=== PATIENT | male | born 1945 | race Caucasian/White ===

== ENCOUNTER 2024-03-11 18:01 | Inpatient (IN) | payer MEDICARE, OTHER, SELFPAY ==
[2024-03-11 15:14] VITALS: BP 126/47; BMI 27.8
--- NOTE | 2024-03-11 15:24 | ED.GENMED ---
History of Present Illness
General
Chief Complaint: Male Genito-Urinary Symptoms
Source: patient
Exam Limitations: none
Time Seen by Provider: 03/11/24 15:20
History of Present Illness
History of Present Illness:
See MDM
Past History
Past History
ED Past Medical History: CAD, CHF, HTN, Hypercholesterolemia, Hypothyroidism and Other (Diverticulitis with perforation 2008, sepsis syndrome after colon reversal 22 complications. Polymyalgia rheumatica, adrenal insufficiency, osteopenia,
Rheumatoid arthritis, SDH, dementia)
ED Past Surgical History: Appendectomy, Bowel resection and Orthopedic (Right femur mello, right foot surgery)
Social History
Tobacco: Non-smoker
Alcohol: Former
Drug: None
Personal:
[facility]: [facility] ([facility])
Employment: Retired
Family History
Family History: Hypertension
Phy Exam
Physical Exam
Physical Exam:
See MDM
Course
Orders/Labs/Results
Orders:
Orders
03/11/24 15:39
COVID-19 Antigen Urgent
Source: Nasal Swab
Complete Blood Count/With Diff Urgent
Comprehensive Metabolic Panel Urgent
Urinalysis Reflex To Culture Urgent
Date Specimen was Collected: 03/11/24
Time Specimen was Collected: 15:33
Urine Microscopic Reflex Cult Urgent
Urine Culture Urgent
TIMOTEO Source: U
Specimen Description:
Date Specimen was Collected: 03/11/24
Time Specimen was Collected: 15:33
03/11/24 16:43
Ciprofloxacin 400 mg/[id number] [Cipro 400 mg] 200 ml IV NOW
03/11/24 16:46
0.9% Sodium Chloride 1000 ml [Nss] 1,000 ml IV BOLUS
Abnormal Lab Results
03/11/24
15:39
WBC 11.6 H 10^3/uL
(4.8-10.8)
RBC 3.73 L 10^6/uL
(4.70-6.10)
Hgb 11.0 L g/dL
(13.0-18.0)
Hct 34.0 L %
(39.0-52.0)
MCHC 32.4 L g/dL
(33.0-37.0)
Plt Count 418 H 10^3/uL
(130-400)
Absolute Neuts (auto) 7.7 H 10^3/uL
(1.4-6.5)
Absolute Monos (auto) 0.9 H 10^3/uL
(0.1-0.6)
BUN 39 H mg/dl
(9-20)
Creatinine 2.1 H mg/dL
(0.7-1.3)
Glucose 163 H mg/dl
(70-99)
Total Bilirubin 0.1 L mg/dl
(0.2-1.3)
Ur Occult Blood Reflex 2+ A
(Negative)
Leukocyte Esterase Rfl 2+ A
(Negative)
Urine WBC (Reflex) 70-80 A /HPF
(0-5)
Urine Bacteria (Reflex) Many A
(Negative)
Urine Albumin (Reflex) 1+ A
(Neg - Trace)
03/11/24 15:39
03/11/24 15:39
Vital Signs
Initial and Last Documented VS:
Initial Vital Signs
Pulse Resp Pulse Ox
65 18 98
03/11/24 15:13 03/11/24 15:13 03/11/24 15:13
Last Documented Vital Signs
Temp Pulse Resp BP Pulse Ox
98.5 F 65 21 126/47 97
03/11/24 15:14 03/11/24 15:15 03/11/24 15:15 03/11/24 15:14 03/11/24 15:15
MDM/Problems Addressed
Differential Diagnosis Includes:
HPI and MDM Narrative:
79-year-old male presenting with concern for persistent UTI. Patient states he was sent in because the antibiotics are not helping. He complains of fevers despite being on antibiotics. He is unsure what antibiotics he is on
Patient sitting bed comfortably. No fever here but patient unsure if he received Tylenol or Motrin today. Will obtain basic blood work and check urine
Physical exam
General: Well appearing and non-toxic
HEENT: protecting airway. Dry mucous membranes
Neck: appears supple
CV: No evidence of cyanosis
Resp: No accessory muscle use. Lungs clear
Abd: Non-distended. Soft and nontender
Extremities: No deformities
Neuro: alert
Psych: Normal affect
Skin: Intact
Problems Addressed including Acute and Chronic Conditions affecting care:
1. Persistent fevers
Acuity: acute
Prognosis: stable
Details: Possibly in the setting of UTI. Will obtain urinalysis. Will obtain COVID testing.
2. Acute kidney injury
Acuity: acute
Prognosis: stable
Details: Likely in setting of poor p.o. intake. Will give IV fluids
Updates
Urinalysis confirms UTI. Given the fevers at home and elevated creatinine, will start IV antibiotics, IV fluids and admit
Differential Diagnosis (but not limited to): COVID, viral syndrome, UTI
Testing considered: Chest x-ray but lungs clear.
Drug therapy (if applicable): OTC meds, please see d/c instruction regarding Rx drugs
Amount and/or Complexity of Data Reviewed
Clinical info obtained from: Patient
External data reviewed: N/A
Labs I independently reviewed (but not limited to): Elevated creatinine
Radiology: N/A
Pulse Ox: not hypoxic
EKG independently reviewed: N/A
Emc Storage Architect: N/A
Critical Care: N/A
Risk of Complication:
Social Determinants of health: Good social support
Discussed with other providers: Hospitalist
Escalation of Care includes Admit/Obs: Given the fevers with no UTI, will start IV antibiotics and admit
Occasional wrong word or 'sound a like' substitutions may have occurred due to the inherent limitations of voice recognition software. Read the chart carefully and recognize, using context, where substitutions have occurred.
*Critical Care Note
Total Time (30-74mins, 75-104mins- exclusive of procedures): Not Applicable
ED Attending Note
-
Portions of this chart may have been created with voice recognition software.� Occasional wrong word or��sound alike� substitutions may have occurred due to the inherent limitations of voice recognition software.
Discharge Plan
Departure
Patient Disposition: Admit
Date of Disposition: 03/11/24
Time of Disposition: 16:49
Admit to: Med/Surg
Presentation/result/management discussed w/ accepting MD/DO: Hospitalist
Discharge Problem:
Acute UTI, Acute kidney injury
Prescriptions:
No Action
metoprolol succinate 50 MG tablet extended release 24 hr
50 mg PO QPM
prednisone 2.5 MG tablet
2.5 mg PO DAILY
paroxetine HCl 20 MG tablet
40 mg PO DAILY
pantoprazole 40 MG tablet,delayed release (DR/EC)
40 mg PO DAILY
calcium carbonate-vitamin D3 [Oyster Shell Calcium-Vit D3] 500 MG tablet
1 tab PO DAILY
levothyroxine [Levoxyl] 88 MCG tablet
88 mcg PO DAILY
[id number]-[id number]-[id number]-nfnunsc-cyhmiq [Centrum Silver Men] 1 EACH tablet
1 ea PO DAILY
simvastatin 40 MG tablet
40 mg PO HS
methenamine hippurate [Hiprex] 1 GM tablet
1 gm PO BID
lorazepam 0.5 MG tablet
0.5 mg PO DAILY PRN (Reason: agitation)
ezetimibe 10 MG tablet
10 mg PO HS
sitagliptin phosphate [Januvia] 100 MG tablet
100 mg PO DAILY
Fluoride (Sodium)
10 ml PO BID
Interventions
Interventions:
*Risk Screen - Suicide Last Done: 03/11/24 15:14
*General Assessment Last Done: 03/11/24 15:14
*Neglect/Abuse Screening Last Done: 03/11/24 15:14
ED- Fall Risk Assessment Last Done: 03/11/24 15:17
*ED COVID-19 Vaccine History Last Done: 03/11/24 15:14
ED-Male Genitourinary Assessment Last Done: 03/11/24 15:17
Discharge Date and Time
Print Language: MOLDOVAN
[2024-03-11 15:50] LABS: Urine Albumin 1+ (Neg - Trace); Urine Bilirubin Negative (Negative); Urine Character Very Cloudy (Clear); Urine Color Yellow; Urine Glucose Negative (Negative); Urine Ketone Negative (Negative); Urine Leukocyte 2+ (Negative); Urine Nitrite Negative (Negative); Urine Occult Blood 2+ (Negative); Urine Specific Gravity 1.005 (<1.030); Urine Urobilinogen Negative (Neg - 1+)
[2024-03-11 15:54] LABS: % Basophils 0.3 % (0-2); % Eosinophils 0.9 % (0-6); % Immature Granulocytes 0.3 % (0-0.5); % Lymphocytes 24.4 % (20.5-51.1); % Monocytes 8.1 % (1.7-9.3); Absolute Eosinophils 0.1 10^3/uL (0-0.7); Absolute Lymphocytes 2.8 10^3/uL (1.2-3.4); Absolute Monocytes 0.9 10^3/uL (0.1-0.6); Absolute Neutrophils 7.7 10^3/uL (1.4-6.5); Mean Corp Hgb Conc. 32.4 g/dL (33.0-37.0); Mean Corpuscular Hgb 29.5 pg (27.0-31.0); Mean Corpuscular Volume 91.2 fL (80.0-94.0); Mean Platelet Volume 8.7 fL (7.4-10.4); Nucleated Red Blood Cells % 0 % (-); Platelet Count 418 10^3/uL (130-400); Red Blood Cell Count 3.73 10^6/uL (4.70-6.10); Red Cell Dist. Width 14.4 % (11.5-14.5); White Blood Cell Count 11.6 10^3/uL (4.8-10.8)
[2024-03-11 16:00] VITALS: BP 131/55
[2024-03-11 16:07] LABS: ALT (SGPT) 13 U/L (0-50); AST (SGOT) 21 U/L (17-59); Albumin 3.5 g/dl (3.5-5.0); Alkaline Phosphatase 88 U/L (38-126); Blood Urea Nitrogen 39 mg/dl (9-20); COVID-19 Antigen Negative (Negative); Calcium 8.8 mg/dl (8.4-10.2); Carbon Dioxide 25 mmol/L (22-30); Chloride 103 mmol/L (98-107); Estimated Creatinine Clearance 27 ml/min; Glucose 163 mg/dl (70-99); Potassium 4.9 mmol/L (3.5-5.1); Sodium 136 mmol/L (135-145); Total Bilirubin 0.1 mg/dl (0.2-1.3); Total Protein 6.5 g/dl (6.3-8.2); eGFR 31.23
[2024-03-11 16:26] LABS: Urine Bacteria Many (Negative); Urine Red Blood Cell 0-2 /HPF (0-2); Urine White Cell 70-80 /HPF (0-5)
[2024-03-11] MEDS: CIPRO 400 MG 200 IV (16:55)
[2024-03-11] MEDS: NSS 1000 IV ×2 (16:56→20:18)
--- NOTE | 2024-03-11 17:14 | HPS.HSE ---
Family Physician
-
Family Physician: Estefany Zhang
Chief Complaint
-
left leg pain, urinary symptoms
History of Present Illness
79-year-old male past medical history of CAD, diabetes, hypertension, hypercholesteremia, hypothyroidism, diverticulitis with perforation status post colon resection, polymyalgia rheumatica, adrenal insufficiency, osteopenia, rheumatoid arthritis,
subdural hematoma, dementia, BPH presenting with left lower leg pain since yesterday and urinary symptoms starting today.
He states that the backside of his left leg feels like a dull pressure starting above the knee and radiating down to the calf. He denies any pain in his lower back or pain in the groin. He denies any falls or injury. He denies any chronic lower
back pain.
Today he developed urinary frequency and burning as well as a fever of 102. He denies any nausea vomiting or diarrhea. He denies any abdominal pain. He denies any history of kidney stones. He was started on Ceftin and gentamicin yesterday. He
has had poor oral intake for the past few days.
Medical History
Past Medical History
Past Medical History: Reports Other (CAD, diabetes, hypertension, hypercholesteremia, hypothyroidism, diverticulitis with perforation status post colon resection, polymyalgia rheumatica, adrenal insufficiency, osteopenia, rheumatoid arthritis,
subdural hematoma, dementia, BPH)
Past Surgical History: Reports Other ( Appendectomy, Bowel resection and Orthopedic (Right femur mello, right foot surgery))
Social History
Tobacco: Non-smoker
Alcohol: Occasional
Drug: None
Family History
Family History: Not pertinent
Allergies / Home Medications
Allergies reflects when Allergies were last updated in [employer].
Home Medications with original date entered in [employer]
Allergy/Medication List:
Allergies
Allergy/AdvReac Type Severity Reaction Status Date / Time
diflunisal Allergy WIGGINS Verified 06/19/22 12:39
JOHNSONS
SYNDROME
penicillin V Allergy Anaphylaxis Verified 06/19/22 12:39
pentazocine Allergy DIFFICULTY Verified 06/19/22 12:39
BREATHING,
HALLUCINATIONS
tramadol HCl [From Ultram] Allergy HALLUCINATI Verified 06/19/22 12:39
ONS
Home Medications
metoprolol succinate 50 mg tablet,extended release 24 hr 50 mg PO QPM 10/06/17
pantoprazole 40 mg tablet,delayed release 40 mg PO DAILY 10/06/17
levothyroxine 88 mcg tablet (Levoxyl) 88 mcg PO DAILY 01/05/18
wmvofmji-by-xtmdo 300 mcg-K 60 mcg-lycop 600 mcg-lutein 300 mcg tablet (Centrum Silver Men) 1 ea PO DAILY 01/05/18
fluoride (sodium) 1.1 % dental gel (DentaGel) 1 applic dental DAILY 04/08/20
methenamine hippurate 1 gram tablet (Hiprex) 1 gm PO BID 04/08/20
simvastatin 40 mg tablet 40 mg PO HS 04/08/20
acetaminophen 325 mg tablet 650 mg PO Q6HPRN PRN mild pain/fever 03/11/24
calcium carbonate 600 mg-vitamin D3 10 mcg (400 unit) tablet (Calcium 600 + D(3)) 1 tab PO BID 03/11/24
estradiol 0.1 mg/24 hr semiweekly transdermal patch 1 patch transdermal MOTH@1830 03/11/24
insulin glargine 100 unit/mL (3 mL) subcutaneous pen (Lantus Solostar U-100 Insulin) 9 unit SC HS 03/11/24
loperamide 2 mg tablet 2 mg PO Q6HPRN PRN loose stool 03/11/24
metformin 500 mg tablet 500 mg PO BID 03/11/24
mirtazapine 7.5 mg tablet 7.5 mg PO HS 03/11/24
prednisone 5 mg tablet 2.5 mg PO DAILY 03/11/24
sertraline 50 mg tablet 75 mg PO DAILY 03/11/24
tamsulosin 0.4 mg capsule 0.4 mg PO HS 03/11/24
Review of Systems
-
History Source: Patient
A 12 point ROS was completed and negative except as noted: Yes
Constitutional: Reports No Symptoms
EENT: Reports No Symptoms
Respiratory: Reports No Symptoms
Cardiac: Reports No Symptoms
Abdomen/GI: Reports No Symptoms
: Reports See HPI
Musculoskeletal: Reports See HPI
Skin: Reports No Symptoms
Neurological: Reports No Symptoms
Endocrine: Reports No Symptoms
Hematologic/Lymphatic: Reports No Symptoms
Psych: Reports No Symptoms
Physical Exam
Vital Signs
Vital Signs
Temp Pulse Resp BP Pulse Ox
98.5 F 65 13 131/55 97
03/11/24 15:14 03/11/24 16:45 03/11/24 16:45 03/11/24 16:00 03/11/24 16:45
Physical Exam
General: Well Developed, Well Nourished and No Apparent Distress
HEENT: NormoCephalic, Moist mucous membranes and Atraumatic
Respiratory: Clear
Cardiac: S1/S2 and Regular Rhythm; No Murmur or Rub
GI: Soft, Non Tender, Non Distended and Normal Bowel Sounds; No Organomegaly
Rectal: Deferred by Provider
Musculoskeletal: No Clubbing, No Cyanosis, No Edema and Other (tender in thigh and hamstrings )
Skin: No Rash
Neuro: Nonfocal/grossly intact
Laboratory Results
-
03/11/24 15:39
03/11/24 15:39
Laboratory Results
Total Bilirubin 0.1 mg/dl (0.2-1.3) L 03/11/24 15:39
AST 21 U/L (17-59) 03/11/24 15:39
ALT 13 U/L (0-50) 03/11/24 15:39
Alkaline Phosphatase 88 U/L (38-126) 03/11/24 15:39
Data Reviewed
-
Lab Data: Labs Reviewed by me
Old Records: Reviewed
Impression/Plan
-
IMPRESSION:
PLAN:
# Urinary tract infection
-Check urine culture
-Levaquin
# Acute left lower extremity pain
-thigh/lower hamstring tenderness
-Possibly sciatic pain versus muscle spasm although no lower back pain
-Check CPK
-Tramadol for pain
# Acute kidney injury likely prerenal
-IV fluids
Coronary artery disease
Type 2 diabetes
-Continue Lantus 9 units
-Insulin sliding scale
-Hold metformin
Essential hypertension
-Continue metoprolol
Hypercholesterolemia
-Continue statin
Hypothyroidism
-Continue levothyroxine
Diverticulitis with perforation status post colon resection
Polymyalgia rheumatica
-Continue prednisone
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
Osteopenia
Rheumatoid arthritis
History of subdural hematoma
Dementia/depression
-Continue mirtazapine, sertraline
BPH
-Continue tamsulosin
Full code
DVT prophylaxis�heparin
Diabetic diet
[2024-03-11 18:46] VITALS: BP 144/58
[2024-03-11 18:47] VITALS: BMI 27.4
[2024-03-11 19:56] LABS: Creatine Phosphokinase 35 U/L (55-170)
[2024-03-11] MEDS: HEPARIN 5000 UNITS SC (20:18)
[2024-03-11] MEDS: FLOMAX 0.4 MG PO (20:18)
[2024-03-11] MEDS: REMERON 7.5 MG PO (20:18)
[2024-03-11] MEDS: LIPITOR 20 MG PO (20:18)
[2024-03-11] MEDS: OSCAL 500 + D 500 MG PO (20:19)
[2024-03-11] MEDS: [UNRECOGNIZED DRUG - OTHER] TRANSDERM (20:19)
[2024-03-11] MEDS: TOPROL XL 50 MG PO (20:19)
[2024-03-11 21:31] LABS: Glucose - Point of Care 95 mg/dl (70-99)
[2024-03-11 23:35] VITALS: BP 138/61
[2024-03-12] MEDS: LANTUS 0.09 UNITS SC ×2 (00:06→23:00)
[2024-03-12] MEDS: SYNTHROID 88 MCG PO (05:48)
[2024-03-12] MEDS: NSS 1000 IV ×2 (05:49→13:00)
[2024-03-12 07:56] VITALS: BP 124/65
[2024-03-12 08:08] LABS: ALT (SGPT) 10 U/L (0-50); AST (SGOT) 19 U/L (17-59); Albumin 2.8 g/dl (3.5-5.0); Alkaline Phosphatase 68 U/L (38-126); Blood Urea Nitrogen 35 mg/dl (9-20); Calcium 8.1 mg/dl (8.4-10.2); Carbon Dioxide 26 mmol/L (22-30); Chloride 109 mmol/L (98-107); Estimated Creatinine Clearance 29 ml/min; Glucose 79 mg/dl (70-99); Potassium 4.6 mmol/L (3.5-5.1); Sodium 138 mmol/L (135-145); Total Bilirubin 0.1 mg/dl (0.2-1.3); Total Protein 5.4 g/dl (6.3-8.2); eGFR 33.12
[2024-03-12] MEDS: NOVOLOG FLEXPEN-LOW RESISTANCE SC ×2 (08:47→11:32)
[2024-03-12 08:48] LABS: Glucose - Point of Care 98 mg/dl (70-99)
[2024-03-12] MEDS: HEPARIN 5000 UNITS SC ×2 (08:48→21:20)
[2024-03-12] MEDS: PROTONIX 40 MG PO (08:49)
[2024-03-12] MEDS: THERAGRAN 1 TABLET PO (08:49)
[2024-03-12] MEDS: DELTASONE 2.5 MG PO (08:49)
[2024-03-12] MEDS: OSCAL 500 + D 500 MG PO ×2 (08:49→21:20)
[2024-03-12] MEDS: ZOLOFT 75 MG PO (08:50)
[2024-03-12 09:23] LABS: Glycohemoglobin (HgbA1c) 5.8 % (4.0-5.6)
[2024-03-12 10:26] LABS: % Basophils 0.8 % (0-2); % Eosinophils 2.1 % (0-6); % Immature Granulocytes 0.2 % (0-0.5); % Lymphocytes 38.5 % (20.5-51.1); % Monocytes 11.4 % (1.7-9.3); Absolute Basophils 0.1 10^3/uL (0-0.2); Absolute Eosinophils 0.2 10^3/uL (0-0.7); Absolute Lymphocytes 3.3 10^3/uL (1.2-3.4); Hematocrit 29.4 % (39.0-52.0); Hemoglobin 9.6 g/dL (13.0-18.0); Mean Corp Hgb Conc. 32.7 g/dL (33.0-37.0); Mean Corpuscular Volume 88.8 fL (80.0-94.0); Mean Platelet Volume 9.1 fL (7.4-10.4); Nucleated Red Blood Cells % 0 % (-); Platelet Count 407 10^3/uL (130-400); Red Blood Cell Count 3.31 10^6/uL (4.70-6.10); Red Cell Dist. Width 14.5 % (11.5-14.5); White Blood Cell Count 8.5 10^3/uL (4.8-10.8)
[2024-03-12 11:30] LABS: Glucose - Point of Care 141 mg/dl (70-99)
[2024-03-12] MEDS: LEVAQUIN 50 IV (15:16)
--- NOTE | 2024-03-12 15:45 | CM ---
legal practice manager reviewed patient's chart and spoke with patient and patient was admitted from [facility], where patient resides, per nursing at [facility] patient was assist with adl's and used a walker with ambulation, case loader operator
reached out to patient's daughter primary contact to review prior level of functioning and left message.
PCP: Dr. Zhang
Pharmacy: [facility].
Plan: To follow with patient progress and assist with discharge planning for patient.
[2024-03-12 15:48] VITALS: BP 111/47
[2024-03-12 16:06] LABS: Glucose - Point of Care 175 mg/dl (70-99)
[2024-03-12] MEDS: NOVOLOG FLEXPEN-LOW RESISTANCE 1 UNITS SC (16:10)
[2024-03-12] MEDS: TOPROL XL 50 MG PO (17:37)
--- NOTE | 2024-03-12 18:45 | W.PN.HOSP.TC ---
Today's Communication/Plan
-
Continue antibiotics pending urine culture
Assessment / Plan
Assessment / Plan
Impression:
Reported dysuria upon presentation.
Concern for UTI.
FLOYD.
Reported acute left lower extremity pain, not on current evaluation.
Other conditions:
CAD
Type 2 diabetes/IDDM
Essential hypertension
Dyslipidemia
Hypothyroidism
History of diverticulitis with perforation
Polymyalgia rheumatica on chronic prednisone for
Chronic adrenal insufficiency per
Osteopenia
Rheumatoid arthritis
History of subdural hematoma per
Dementia likely senile type.
BPH
Plan:
Concern for UTI
Urinalysis consistent with pyuria.
Continue antibiotics/Levaquin pending urine cultures
FLOYD.
Creatinine 2.1 upon presentation (baseline 1.3)
History of BPH.
Bladder scan to rule out obstructive component
IV hydration.
Continue Flomax
Reported acute left lower extremity pain. On exam with no erythema, induration or edema.
Normal CPK.
Monitor closely
Coronary artery disease
Type 2 diabetes
-Continue Lantus 9 units
-Insulin sliding scale
-Hold metformin
Essential hypertension
-Continue metoprolol
Hypercholesterolemia
-Continue statin
Hypothyroidism
-Continue levothyroxine
Diverticulitis with perforation status post colon resection
Polymyalgia rheumatica
-Continue prednisone
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
Osteopenia
Rheumatoid arthritis
History of subdural hematoma
Dementia/depression
-Continue mirtazapine, sertraline
BPH
-Continue tamsulosin
Full code
DVT prophylaxis�heparin
Diabetic diet
Anticipated Discharge: 24 - 48 hours
Subjective/Interval History
-
Date of Service: March 12, 2024
Objective Data
-
Labs:
Laboratory Results
03/12/24
06:42
WBC 8.5
Hgb 9.6 L
Hct 29.4 L
Plt Count 407 H
Sodium 138
Potassium 4.6
Chloride 109 H
Carbon Dioxide 26
BUN 35 H
Creatinine 2.0 H
Glucose 79
Calcium 8.1 L
Total Bilirubin 0.1 L
AST 19
ALT 10
Alkaline Phosphatase 68
Vital Signs:
Vital Signs
Temp Pulse Resp BP Pulse Ox
98.3 F 61 20 111/47 97
03/12/24 15:48 03/12/24 15:48 03/12/24 15:48 03/12/24 15:48 03/12/24 15:48
I&O
03/11/24 03/12/24 03/13/24
06:59 06:59 06:59
Intake Total 1200 / 1200
Balance 1200 / 1200
Physical Exam
-
General: Well Developed and No Apparent Distress
HEENT: Normocephalic, Atraumatic and Moist Mucous Membranes
Respiratory: Clear to Auscultation
Cardiac: Regular Rhythm and S1/S2; Negative Murmur, Rub or Gallop
GI: Soft, Nontender, Nondistended and Normal Bowel Sounds; Negative Organomegaly
Rectal: Deferred by Provider
Musculoskeletal: No Clubbing, No Cyanosis and No Edema
Skin: Negative Rash
Neuro: Nonfocal/Grossly Intact
[2024-03-12 21:18] LABS: Glucose - Point of Care 108 mg/dl (70-99)
[2024-03-12] MEDS: LIPITOR 20 MG PO (21:20)
[2024-03-12] MEDS: REMERON 7.5 MG PO (21:20)
[2024-03-12] MEDS: FLOMAX 0.4 MG PO (21:20)
[2024-03-12 23:38] VITALS: BP 141/77
[2024-03-13] MEDS: NSS 1000 IV (00:40)
[2024-03-13] MEDS: SYNTHROID 88 MCG PO (05:59)
[2024-03-13 07:53] LABS: Glucose - Point of Care 128 mg/dl (70-99)
[2024-03-13 08:14] VITALS: BP 125/63
[2024-03-13] MEDS: NOVOLOG FLEXPEN-LOW RESISTANCE SC ×2 (08:43→12:23)
[2024-03-13] MEDS: ZOLOFT 75 MG PO (08:46)
[2024-03-13] MEDS: DELTASONE 2.5 MG PO (08:47)
[2024-03-13] MEDS: THERAGRAN 1 TABLET PO (08:48)
[2024-03-13] MEDS: OSCAL 500 + D 500 MG PO (08:48)
[2024-03-13] MEDS: PROTONIX 40 MG PO (08:48)
[2024-03-13] MEDS: HEPARIN 5000 UNITS SC (08:49)
[2024-03-13 09:51] LABS: % Basophils 0.8 % (0-2); % Eosinophils 1.8 % (0-6); % Immature Granulocytes 0.2 % (0-0.5); % Lymphocytes 36.7 % (20.5-51.1); % Monocytes 9.2 % (1.7-9.3); % Neutrophils 51.3 % (42.2-75.2); Absolute Basophils 0.1 10^3/uL (0-0.2); Absolute Eosinophils 0.2 10^3/uL (0-0.7); Absolute Lymphocytes 3.5 10^3/uL (1.2-3.4); Absolute Monocytes 0.9 10^3/uL (0.1-0.6); Absolute Neutrophils 4.8 10^3/uL (1.4-6.5); Mean Corp Hgb Conc. 32.3 g/dL (33.0-37.0); Mean Corpuscular Hgb 28.5 pg (27.0-31.0); Mean Corpuscular Volume 88.3 fL (80.0-94.0); Mean Platelet Volume 8.9 fL (7.4-10.4); Nucleated Red Blood Cells % 0 % (-); Platelet Count 421 10^3/uL (130-400); Red Blood Cell Count 3.51 10^6/uL (4.70-6.10); Red Cell Dist. Width 14.6 % (11.5-14.5); White Blood Cell Count 9.4 10^3/uL (4.8-10.8)
[2024-03-13 11:01] LABS: Blood Urea Nitrogen 31 mg/dl (9-20); Calcium 8.5 mg/dl (8.4-10.2); Carbon Dioxide 18 mmol/L (22-30); Chloride 111 mmol/L (98-107); Estimated Creatinine Clearance 30 ml/min; Glucose 154 mg/dl (70-99); Potassium 4.5 mmol/L (3.5-5.1); Sodium 138 mmol/L (135-145); eGFR 35.22
--- NOTE | 2024-03-13 11:48 | W.DS.TRANS ---
DC Summary - Patient Scheduling Manager
-
Discharge Instructions:
Discharge Diagnosis/Procedures Concern for uti
Diet Regular
Instructions:
Stand-Alone Forms:
Changes to Home Medications: No
Discharge Medications:
DC Medications w/original date entered in [facility]
metoprolol succinate 50 mg tablet,extended release 24 hr 50 mg PO QPM Blood Pressure 10/06/17
pantoprazole 40 mg tablet,delayed release 40 mg PO DAILY GERD 10/06/17
levothyroxine 88 mcg tablet (Levoxyl) 88 mcg PO DAILY Thyroid 01/05/18
kcnaqdmj-oh-vsblc 300 mcg-K 60 mcg-lycop 600 mcg-lutein 300 mcg tablet (Centrum Silver Men) 1 ea PO DAILY Supplement 01/05/18
fluoride (sodium) 1.1 % dental gel (DentaGel) 1 applic dental DAILY DENTAL CARE 04/08/20
methenamine hippurate 1 gram tablet (Hiprex) 1 gm PO BID Urinary Issue 04/08/20
simvastatin 40 mg tablet 40 mg PO HS High Cholesterol 04/08/20
acetaminophen 325 mg tablet 650 mg PO Q6HPRN PRN mild pain/fever 03/11/24
calcium carbonate 600 mg-vitamin D3 10 mcg (400 unit) tablet (Calcium 600 + D(3)) 1 tab PO BID Supplement 03/11/24
estradiol 0.1 mg/24 hr semiweekly transdermal patch 1 patch transdermal MOTH@1830 Hormonal Agent 03/11/24
insulin glargine 100 unit/mL (3 mL) subcutaneous pen (Lantus Solostar U-100 Insulin) 9 unit SC HS diabetes 03/11/24
loperamide 2 mg tablet 2 mg PO Q6HPRN PRN loose stool 03/11/24
metformin 500 mg tablet 500 mg PO BID diabetes 03/11/24
mirtazapine 7.5 mg tablet 7.5 mg PO HS depression/insomnia 03/11/24
prednisone 5 mg tablet 2.5 mg PO DAILY Anti-Inflammatory 03/11/24
sertraline 50 mg tablet 75 mg PO DAILY depression/anxiety 03/11/24
tamsulosin 0.4 mg capsule 0.4 mg PO HS Urinary Issue 03/11/24
Home Medication Changes
Pending Results: No
[2024-03-13 12:01] LABS: Glucose - Point of Care 135 mg/dl (70-99)
--- NOTE | 2024-03-13 12:36 | CM ---
Addendum entered by Samanta Lawrence 03/13/24 12:50:
manager of sales spoke with [facility] and they are aware that patient is returning today.
[facility]
Report [phone]

Original Note:
Patient to return to [facility] today, waiting on a return call from [facility].
Plan; Patient to return to [facility] today
[2024-03-13 13:52] VITALS: BP 133/64
== END 2024-03-13 13:52 | DRG 690 ==
LOC: 4 WEST ACU 18:01
PROVIDERS: ADMITTING PHYSICIAN Hospitalist; ATTENDING PHYSICIAN Internal Medicine; EMERGENCY PHYSICIAN Student in an Organized Health Care Education/Training Program; FAMILY PHYSICIAN Internal Medicine
DX: N39.0 Urinary tract infection, site not specified (principal); I13.0 Hypertensive heart and chronic kidney disease with heart failure and stage 1 through stage 4 chronic kidney disease, or unspecified chronic kidney disease; E27.3 Drug-induced adrenocortical insufficiency; F03.93 Unspecified dementia, unspecified severity, with mood disturbance; I25.10 Atherosclerotic heart disease of native coronary artery without angina pectoris; N13.30 Unspecified hydronephrosis; E11.22 Type 2 diabetes mellitus with diabetic chronic kidney disease; I50.9 Heart failure, unspecified; E78.00 Pure hypercholesterolemia, unspecified; E03.9 Hypothyroidism, unspecified; M35.3 Polymyalgia rheumatica; M85.80 Other specified disorders of bone density and structure, unspecified site; N40.0 Benign prostatic hyperplasia without lower urinary tract symptoms; M06.9 Rheumatoid arthritis, unspecified; N18.2 Chronic kidney disease, stage 2 (mild); M79.605 Pain in left leg; T38.0X5A Adverse effect of glucocorticoids and synthetic analogues, initial encounter; Z88.0 Allergy status to penicillin; Z88.8 Allergy status to other drugs, medicaments and biological substances; Z79.4 Long term (current) use of insulin; Z79.84 Long term (current) use of oral hypoglycemic drugs; Z79.890 Hormone replacement therapy; Z86.79 Personal history of other diseases of the circulatory system; Z11.59 Encounter for screening for other viral diseases
CPT/HCPCS: 76770; 80048; 80053; 81003; 81015; 82550; 82962; 83036; 85025; 87070; 87086; 87811; 96361; 96374; 99285

== ENCOUNTER 2024-03-26 07:30 | Emergency (ER) | payer MEDICARE, OTHER, SELFPAY ==
[2024-03-26] VITALS (9 sets, daily range): BP systolic 92–120; BP diastolic 48–66; BMI 27.6
--- NOTE | 2024-03-26 07:49 | ED.GENMED ---
History of Present Illness
<Wilmer Rizzo PA-C - Last Filed: 03/26/24 14:40>
General
Chief Complaint: Fainting/Passed Out
Source: patient
Exam Limitations: none
Time Seen by Provider: 03/26/24 07:32
History of Present Illness
History of Present Illness:
79-year-old male from [facility] via EMS after witnessed syncopal episode. Per facility he was using the shower and going to the bathroom and stood up and passed out. Staff caught him and he sustained no injuries. Patient arrives
alert stating that he passed out at his facility. He denies any pain. He does remember feeling lightheaded prior to passing out. No current chest pain abdominal pain shortness of breath. After speaking with the staff at the facility as well as
both daughters over the telephone, they state that he has been having diarrhea for quite some time and has been having studies done evaluating this. He has a history of dementia. No other complaints at this time
Past History
<Wilmer Rizzo PA-C - Last Filed: 03/26/24 14:40>
Past History
ED Past Medical History: CAD, CHF, HTN, Hypercholesterolemia, Hypothyroidism and Other (Diverticulitis with perforation 2008, sepsis syndrome after colon reversal 22 complications. Polymyalgia rheumatica, adrenal insufficiency, osteopenia,
Rheumatoid arthritis, SDH, dementia)
ED Past Surgical History: Appendectomy, Bowel resection and Orthopedic (Right femur mello, right foot surgery)
Social History
Tobacco: Non-smoker
Alcohol: Former
Drug: None
Personal:
Living: retirement ([facility])
Employment: Retired
Family History
Family History: Hypertension
Phy Exam
<Wilmer Rizzo PA-C - Last Filed: 03/26/24 14:40>
Physical Exam
Physical Exam:
General: Well-appearing male no acute respiratory distress
HEENT: Normocephalic atraumatic
Heart: Regular rate and rhythm no murmurs
Lungs: Clear no wheeze
Abdomen is soft nontender nondistended no guarding or rebound
Extremities: No cyanosis
Skin: Warm no rash
Neuro: Alert no facial asymmetry good muscle tone oriented to person and place
Course
<Wilmer Rizzo PA-C - Last Filed: 03/26/24 14:40>
Orders/Labs/Results
Orders:
Orders
03/26/24 07:32
Electrocardiogram (*1) Urgent
Reason for Study: Syncope
EKG- Treatment ONCE
03/26/24 07:48
Cardiac Monitoring- Treatment ONCE
03/26/24 08:20
Complete Blood Count/With Diff Urgent
Comprehensive Metabolic Panel Urgent
03/26/24 11:14
0.9% Sodium Chloride 500 ml [Nss] 500 ml IV BOLUS
03/26/24 12:45
Urinalysis Reflex To Culture Urgent
Date Specimen was Collected: 03/26/24
Time Specimen was Collected: 12:14
Urine Microscopic Reflex Cult Urgent
Urine Culture Urgent
TIMOTEO Source: U
Specimen Description:
Date Specimen was Collected: 03/26/24
Time Specimen was Collected: 12:14
03/26/24 14:34
Ciprofloxacin HCl [Cipro] 500 mg PO NOW STA
Abnormal Lab Results
03/26/24 03/26/24
08:20 12:45
WBC 11.8 H 10^3/uL
(4.8-10.8)
RBC 4.01 L 10^6/uL
(4.70-6.10)
Hgb 11.9 L g/dL
(13.0-18.0)
Hct 36.7 L %
(39.0-52.0)
MCHC 32.4 L g/dL
(33.0-37.0)
RDW 15.3 H %
(11.5-14.5)
Plt Count 424 H 10^3/uL
(130-400)
Absolute Neuts (auto) 6.9 H 10^3/uL
(1.4-6.5)
Absolute Monos (auto) 1.4 H 10^3/uL
(0.1-0.6)
Monocytes % 11.7 H %
(1.7-9.3)
BUN 38 H mg/dl
(9-20)
Creatinine 2.2 H mg/dL
(0.7-1.3)
Ur Occult Blood Reflex 2+ A
(Negative)
Leukocyte Esterase Rfl 2+ A
(Negative)
Urine RBC 7-10 A /HPF
(0-2)
Urine WBC (Reflex) 40-50 A /HPF
(0-5)
Urine Bacteria (Reflex) Many A
(Negative)
Urine Albumin (Reflex) 1+ A
(Neg - Trace)
03/26/24 08:20
03/26/24 08:20
Vital Signs
Initial and Last Documented VS:
Initial Vital Signs
Temp Pulse Resp BP Pulse Ox
36.6 C 61 16 113/50 99
03/26/24 07:34 03/26/24 07:34 03/26/24 07:34 03/26/24 07:34 03/26/24 07:34
Last Documented Vital Signs
Temp Pulse Resp BP Pulse Ox
36.6 C 58 16 96/54 96
03/26/24 07:34 03/26/24 10:45 03/26/24 10:45 03/26/24 09:00 03/26/24 10:45
<Isai Hannah MD - Last Filed: 03/26/24 14:46>
Orders/Labs/Results
Orders:
Orders
03/26/24 07:32
Electrocardiogram (*1) Urgent
Reason for Study: Syncope
EKG- Treatment ONCE
03/26/24 07:48
Cardiac Monitoring- Treatment ONCE
03/26/24 08:20
Complete Blood Count/With Diff Urgent
Comprehensive Metabolic Panel Urgent
03/26/24 11:14
0.9% Sodium Chloride 500 ml [Nss] 500 ml IV BOLUS
03/26/24 12:45
Urinalysis Reflex To Culture Urgent
Date Specimen was Collected: 03/26/24
Time Specimen was Collected: 12:14
Urine Microscopic Reflex Cult Urgent
Urine Culture Urgent
TIMOTEO Source: U
Specimen Description:
Date Specimen was Collected: 03/26/24
Time Specimen was Collected: 12:14
03/26/24 14:34
Ciprofloxacin HCl [Cipro] 500 mg PO NOW STA
Abnormal Lab Results
03/26/24 03/26/24
08:20 12:45
WBC 11.8 H 10^3/uL
(4.8-10.8)
RBC 4.01 L 10^6/uL
(4.70-6.10)
Hgb 11.9 L g/dL
(13.0-18.0)
Hct 36.7 L %
(39.0-52.0)
MCHC 32.4 L g/dL
(33.0-37.0)
RDW 15.3 H %
(11.5-14.5)
Plt Count 424 H 10^3/uL
(130-400)
Absolute Neuts (auto) 6.9 H 10^3/uL
(1.4-6.5)
Absolute Monos (auto) 1.4 H 10^3/uL
(0.1-0.6)
Monocytes % 11.7 H %
(1.7-9.3)
BUN 38 H mg/dl
(9-20)
Creatinine 2.2 H mg/dL
(0.7-1.3)
Ur Occult Blood Reflex 2+ A
(Negative)
Leukocyte Esterase Rfl 2+ A
(Negative)
Urine RBC 7-10 A /HPF
(0-2)
Urine WBC (Reflex) 40-50 A /HPF
(0-5)
Urine Bacteria (Reflex) Many A
(Negative)
Urine Albumin (Reflex) 1+ A
(Neg - Trace)
03/26/24 08:20
03/26/24 08:20
Vital Signs
Initial and Last Documented VS:
Initial Vital Signs
Temp Pulse Resp BP Pulse Ox
36.6 C 61 16 113/50 99
03/26/24 07:34 03/26/24 07:34 03/26/24 07:34 03/26/24 07:34 03/26/24 07:34
Last Documented Vital Signs
Temp Pulse Resp BP Pulse Ox
36.6 C 58 16 96/54 96
03/26/24 07:34 03/26/24 10:45 03/26/24 10:45 03/26/24 09:00 03/26/24 10:45
<Wilmer Rizzo PA-C - Last Filed: 03/26/24 14:40>
MDM/Problems Addressed
Differential Diagnosis Includes:
Syncope. Question orthostasis versus dehydration versus electrolyte abnormality versus arrhythmia
Discussed at length with both daughters over the telephone about treatment goals. His paperwork with comfort measures only but they are okay with general testing and hydration or antibiotics if needed. They do not want any heroic such as CPR or
intubation. Will check labs and urine. Patient placed on cardiac
<Wilmer Rizzo PA-C - Last Filed: 08/27/24 14:40>
*Critical Care Note
Total Time (30-74mins, 75-104mins- exclusive of procedures): Not Applicable
<Wilmer Rizzo PA-C - Last Filed: 03/26/24 14:40>
Update Note
Update Note:
Workup here demonstrates UTI. He was given some fluid. He is stable nontoxic no signs of sepsis no arrhythmias here. Will start on Cipro for UTI and discharged back to facility. Discussed with patient daughter
ED Attending Note
<Wilmer Rizzo PA-C - Last Filed: 03/26/24 14:40>
-
Portions of this chart may have been created with voice recognition software.� Occasional wrong word or��sound alike� substitutions may have occurred due to the inherent limitations of voice recognition software.
<Isai Hannah MD - Last Filed: 03/26/24 14:46>
ED Attending Note
Patient seen and examined by attending physician: Yes
ED Attending Note:
I have seen and evaluated the patient with a [id number] encounter. I have spoken to the advance practicer provider and involved in the medical history, the physical exam, medical decision making.
Evaluation and management service: agree unless noted differently below.
Results interpretation: agree unless noted differently below.
Focused HPI: 79-year-old male with history as documented presents from retirement at [facility] for evaluation after syncopal event. According to staff at [facility] who I spoke with directly patient has been dealing with some diarrhea for
the past few days. This morning was in the shower with the aid and had brief syncopal event. EMS was called to bring her to the hospital. Patient says 'I passed out.' Denies specific complaints. No apparent trauma.
Physical exam: Awake and alert. Nontoxic. Vital signs normal.
Medical Decision Makin-year-old male presented after witnessed syncopal event in the setting of recent diarrheal illness. Vitals normal. EKG shows sinus rhythm with no high-grade AV block, no ectopy, no QTc prolongation, no Brugada. No clear
ischemic changes. Labs sent off including a CBC which shows some hemoconcentration. He has a mild FLOYD with a creatinine of 2.2 from baseline of 1.9. No significant electrolyte derangements. His urinalysis was positive for infection. He was
given IV fluids here, observed on the monitor for 6+ hours with no significant events. PA discussed with family, plan for discharge home will treat with antibiotics for possible UTI in the setting of recent diarrhea.
Discharge Plan
Departure
Patient Disposition: Home (Routine Discharge)
Date of Disposition: 03/26/24
Time of Disposition: 14:35
Patient with high blood pressure during this ER visit?: No
Discharge Problem:
Acute UTI
Instructions: Syncope (Fainting) (DC), Urinary Tract Infection, Adult ED
Prescriptions:
New
ciprofloxacin HCl [Cipro] 500 mg tablet
500 mg PO Q12H Qty: 14 0RF
No Action
metoprolol succinate 50 MG tablet extended release 24 hr
50 mg PO QPM
pantoprazole 40 MG tablet,delayed release (DR/EC)
40 mg PO DAILY
levothyroxine [Levoxyl] 88 MCG tablet
88 mcg PO DAILY
Centrum Silver Men 1 EACH tablet
1 ea PO DAILY
simvastatin 40 MG tablet
40 mg PO HS
methenamine hippurate [Hiprex] 1 GM tablet
1 gm PO BID
fluoride (sodium) [DentaGel] 1.1 % Gel
1 applic DENTAL DAILY
metformin 500 mg tablet
500 mg PO BID
acetaminophen 325 mg Tablet
650 mg PO Q6HPRN PRN (Reason: mild pain/fever)
prednisone 5 mg tablet
2.5 mg PO DAILY
estradiol 0.1 mg/24 hr patch semiweekly
1 patch transdermal MOTH@1830
loperamide 2 mg Tablet
2 mg PO Q6HPRN PRN (Reason: loose stool)
tamsulosin 0.4 mg capsule
0.4 mg PO HS
sertraline 50 mg Tablet
75 mg PO DAILY
mirtazapine 7.5 mg Tablet
7.5 mg PO HS
calcium carbonate-vitamin D3 [Calcium 600 + D(3)] 600 mg-10 mcg (400 unit) Tablet
1 tab PO BID
insulin glargine [Lantus Solostar U-100 Insulin] 100 unit/mL (3 mL) Insulin Pen
9 unit SC HS
Referrals:
Estefany Zhang MD [Family Provider] -
Activity Restrictions/Additional Instructions:
Encourage fluids. Administer antibiotic as prescribed return if worse otherwise
Interventions
Interventions:
*Risk Screen - Suicide Last Done: 03/26/24 07:34
*General Assessment Last Done: 03/26/24 07:34
*Neglect/Abuse Screening Last Done: 03/26/24 07:34
ED- Fall Risk Assessment Last Done: 03/26/24 08:22
*ED COVID-19 Vaccine History Last Done: 03/26/24 07:34
ED- Cardiac Assessment Last Done: 03/26/24 08:22
ED- Neurological Assessment Last Done: 03/26/24 08:22
Discharge Date and Time
Print Language: LIBYAN
[2024-03-26 08:30] LABS: % Basophils 0.6 % (0-2); % Eosinophils 1.7 % (0-6); % Immature Granulocytes 0.3 % (0-0.5); % Lymphocytes 27.4 % (20.5-51.1); % Monocytes 11.7 % (1.7-9.3); % Neutrophils 58.3 % (42.2-75.2); Absolute Basophils 0.1 10^3/uL (0-0.2); Absolute Eosinophils 0.2 10^3/uL (0-0.7); Absolute Lymphocytes 3.3 10^3/uL (1.2-3.4); Absolute Monocytes 1.4 10^3/uL (0.1-0.6); Absolute Neutrophils 6.9 10^3/uL (1.4-6.5); Hematocrit 36.7 % (39.0-52.0); Hemoglobin 11.9 g/dL (13.0-18.0); Mean Corp Hgb Conc. 32.4 g/dL (33.0-37.0); Mean Corpuscular Hgb 29.7 pg (27.0-31.0); Mean Corpuscular Volume 91.5 fL (80.0-94.0); Nucleated Red Blood Cells % 0 % (-); Platelet Count 424 10^3/uL (130-400); Red Blood Cell Count 4.01 10^6/uL (4.70-6.10); Red Cell Dist. Width 15.3 % (11.5-14.5); White Blood Cell Count 11.8 10^3/uL (4.8-10.8)
[2024-03-26 08:52] LABS: ALT (SGPT) 12 U/L (0-50); AST (SGOT) 22 U/L (17-59); Albumin 3.9 g/dl (3.5-5.0); Alkaline Phosphatase 88 U/L (38-126); Blood Urea Nitrogen 38 mg/dl (9-20); Calcium 9.8 mg/dl (8.4-10.2); Carbon Dioxide 27 mmol/L (22-30); Chloride 104 mmol/L (98-107); Estimated Creatinine Clearance 26 ml/min; Glucose 92 mg/dl (70-99); Potassium 4.8 mmol/L (3.5-5.1); Sodium 140 mmol/L (135-145); Total Bilirubin 0.4 mg/dl (0.2-1.3); Total Protein 6.9 g/dl (6.3-8.2); eGFR 29.54
[2024-03-26] MEDS: NSS 500 IV (11:26)
[2024-03-26 13:09] LABS: Urine Albumin 1+ (Neg - Trace); Urine Bilirubin Negative (Negative); Urine Character Very Cloudy (Clear); Urine Color Yellow; Urine Glucose Negative (Negative); Urine Ketone Negative (Negative); Urine Leukocyte 2+ (Negative); Urine Nitrite Negative (Negative); Urine Occult Blood 2+ (Negative); Urine Urobilinogen Negative (Neg - 1+)
[2024-03-26 14:27] LABS: Urine Mucus Many
[2024-03-26 14:31] LABS: Urine Amorphous Seen; Urine Squamous Cell 0-2 /LPF (Few)
[2024-03-26 14:32] LABS: Urine Bacteria Many (Negative); Urine White Cell 40-50 /HPF (0-5)
[2024-03-26] MEDS: CIPRO 500 MG PO (15:03)
== END 2024-03-26 18:00 | disposition home or self-care (01) ==
LOC: EMR 07:30
PROVIDERS: Physician Assistant; EMERGENCY PHYSICIAN Emergency Medicine; FAMILY PHYSICIAN Internal Medicine
DX: N39.0 Urinary tract infection, site not specified (principal); F03.90 Unspecified dementia, unspecified severity, without behavioral disturbance, psychotic disturbance, mood disturbance, and anxiety
CPT/HCPCS: 99284; 96360; 80053; 81003; 81015; 85025; 87077; 87086; 87186; 93005

== ENCOUNTER 2024-10-11 21:42 | Emergency (ER) | payer MEDICARE, OTHER, SELFPAY ==
[2024-10-11 21:45] VITALS: BP 136/66
[2024-10-11 21:46] VITALS: BP 139/66
[2024-10-11 22:05] VITALS: BP 150/72
[2024-10-11 22:17] VITALS: BMI 28.7
--- NOTE | 2024-10-11 22:50 | ED.GENMED ---
History of Present Illness
General
Chief Complaint: Fall
Source: patient and ambulance crew
Exam Limitations: none
Time Seen by Provider: 10/11/24 22:29
Nursing documentation reviewed up to this point in time: agreed with
History of Present Illness
History of Present Illness:
79-year-old male presents emergency department due to a fall. He hit the back of his head. He denies any pain at this time. He had initially complained of neck pain.
Past History
Past History
ED Past Medical History: CAD, CHF, HTN, Hypercholesterolemia, Hypothyroidism and Other (Diverticulitis with perforation 2008, sepsis syndrome after colon reversal 22 complications. Polymyalgia rheumatica, adrenal insufficiency, osteopenia,
Rheumatoid arthritis, SDH, dementia)
ED Past Surgical History: Appendectomy, Bowel resection and Orthopedic (Right femur mello, right foot surgery)
Social History
Tobacco: Non-smoker
Alcohol: Former
Drug: None
Personal:
Living: half-way ([facility])
Employment: Retired
Family History
Family History: Hypertension
Review of Systems
Review of Systems
Allergies reviewed?: Yes
All Other Systems: Not applicable
Constitutional: Reports no symptoms
EENT: Reports no symptoms
Respiratory: Reports no symptoms
Cardiac: Reports no symptoms
ABD/GI: Reports no symptoms
: Reports no symptoms
Musculoskeletal: Reports neck pain and back pain
Skin: Reports no symptoms
Neurological: Reports no symptoms
Endocrine: Reports no symptoms
Hematologic/Lymphatic: Reports no symptoms
Phy Exam
Physical Exam
Physical Exam:
Physical Exam
General: no apparent distress, not acutely ill
Neck: supple. no meningeal signs. normal posterior pharynx, cervical spine collar
Heart: s1/s2 regular rate and rhythm, no murmur. equal radial
pulses.
HEENT: Pupils equal round reactive to light, EOMI
Lungs: no acute respiratory distress. clear bilaterally
Abdomen: normal bowel sounds. not tender. no CVAT
Neuro: alert and oriented. no focal neurological deficits cranial nerves II through XII intact
Skin: no rash, abrasion posterior scalp
Psychiatric: well kept. interactive and cooperative
Extremities: no edema. no calf tenderness. negative homans. good distal pulses
Course
Orders/Labs/Results
Orders:
Orders
10/11/24 22:06
CT Cervical Spine W/o Iv Contr Urgent
Reason For Exam: fall, head strike
CT Head W/o Iv Contrast Urgent
Comment:
Reason For Exam: Fall, head strike
Vital Signs
Initial and Last Documented VS:
Initial Vital Signs
Temp Pulse Resp BP Pulse Ox
97.8 F 81 18 136/66 98
10/11/24 21:45 10/11/24 21:45 10/11/24 21:45 10/11/24 21:45 10/11/24 21:45
Last Documented Vital Signs
Temp Pulse Resp BP Pulse Ox
97.8 F 73 8 150/72 93
10/11/24 21:45 10/11/24 22:15 10/11/24 22:15 10/11/24 22:05 10/11/24 22:15
MDM/Problems Addressed
Differential Diagnosis Includes:
Intracranial hemorrhage, cervical spine fracture
MDM/Problems Addressed:
79-year-old male with fall, no signs of cervical spine fracture or intracranial hemorrhage. Stable for discharge. No other injuries noted.
Chronic conditions affecting care: Previous abdomnial surgery
*Radiology
Radiology exam reviewed: radiology read reviewed (CT head and cervical spine no acute findings)
*Pulse Oximetry
Patient hypoxic: no
*Critical Care Note
Total Time (30-74mins, 75-104mins- exclusive of procedures): Not Applicable
Patient Management
Social determinants of health affecting care: Living situation and Strong social support
Escalation/DeEscalation of care consider admission/obs:
Admit not indicated
ED Attending Note
-
Portions of this chart may have been created with voice recognition software.� Occasional wrong word or��sound alike� substitutions may have occurred due to the inherent limitations of voice recognition software.
Discharge Plan
Departure
Patient Disposition: Penitentiary/SNF
Date of Disposition: 10/11/24
Time of Disposition: 23:54
Patient with high blood pressure during this ER visit?: Yes
Condition: Good
Discharge Problem:
Abrasion of scalp, Fall
Instructions: Head Injury in Adults (DC), Preventing falls in adults, BLOOD PRESSURE
Prescriptions:
No Action
metoprolol succinate 50 MG tablet extended release 24 hr
50 mg PO QPM
pantoprazole 40 MG tablet,delayed release (DR/EC)
40 mg PO DAILY
levothyroxine [Levoxyl] 88 MCG tablet
88 mcg PO DAILY
Centrum Silver Men 1 EACH tablet
1 ea PO DAILY
simvastatin 40 MG tablet
40 mg PO HS
methenamine hippurate [Hiprex] 1 GM tablet
1 gm PO BID
fluoride (sodium) [DentaGel] 1.1 % Gel
1 applic DENTAL DAILY
metformin 500 mg tablet
500 mg PO BID
acetaminophen 325 mg Tablet
650 mg PO Q6HPRN PRN (Reason: mild pain/fever)
prednisone 5 mg tablet
2.5 mg PO DAILY
estradiol 0.1 mg/24 hr patch semiweekly
1 patch transdermal MOTH@1830
loperamide 2 mg Tablet
2 mg PO Q6HPRN PRN (Reason: loose stool)
tamsulosin 0.4 mg capsule
0.4 mg PO HS
sertraline 50 mg Tablet
75 mg PO DAILY
mirtazapine 7.5 mg Tablet
7.5 mg PO HS
calcium carbonate-vitamin D3 [Calcium 600 + D(3)] 600 mg-10 mcg (400 unit) Tablet
1 tab PO BID
insulin glargine [Lantus Solostar U-100 Insulin] 100 unit/mL (3 mL) Insulin Pen
9 unit SC HS
ciprofloxacin HCl [Cipro] 500 mg tablet
500 mg PO Q12H Qty: 14 0RF
Referrals:
Wilberto Oneill DO [Family Provider] - Call in 1-3 days for appt
Interventions
Interventions:
*Risk Screen - Suicide Last Done: 10/11/24 21:45
*Neglect/Abuse Screening Last Done: 10/11/24 21:45
*ED- Fall Risk Assessment Last Done: 10/11/24 21:45
*ED COVID-19 Vaccine History Last Done: 10/11/24 21:45
ED-Musculoskeletal Assessment Last Done: 10/11/24 22:14
ED- Neurological Assessment Last Done: 10/11/24 22:15
Discharge Date and Time
Print Language: PORTUGUESE
[2024-10-11 23:07] VITALS: BP 120/43
[2024-10-12] VITALS: BP 112/49
== END 2024-10-12 02:18 ==
LOC: EMR 21:42
PROVIDERS: EMERGENCY PHYSICIAN Emergency Medicine; FAMILY PHYSICIAN Family Medicine
DX: S00.01XA Abrasion of scalp, initial encounter (principal); W19.XXXA Unspecified fall, initial encounter; I10 Essential (primary) hypertension
CPT/HCPCS: 99284; 70450; 72125

== ENCOUNTER 2024-10-13 16:00 | Inpatient (IN) | payer MEDICARE, OTHER, SELFPAY ==
[2024-10-13] VITALS (53 sets, daily range): BP systolic 95–175; BP diastolic 49–103
[2024-10-13 14:37] LABS: Glucose - Point of Care 183 mg/dl (70-99)
--- NOTE | 2024-10-13 14:44 | ED.GENMED ---
History of Present Illness
General
Chief Complaint: Change in Mental Status
Time Seen by Provider: 10/13/24 14:35
History of Present Illness
History of Present Illness:
TIME OF INITIAL ENCOUNTER: 2:40 PM
HPI: Patient is seen as a stroke Alert activated after patient arrived. I spoke to RN at [facility]: Last normal 1pm. Mild dementia, normal oriented to place and name. Later in afternoon, said 'I want to go to fire' [instead of room] and 'I want to
sit on the tire' - this is a major acute change for him. RN noted R face droop and RUE weak.
EXAM:
GENERAL: Chronically ill in appearance
HEENT: Moist oral mucosa
CARDIOVASCULAR: No murmurs, normal heart rate, regular rhythm, No chest wall tenderness
PULMONARY: No respiratory distress, breath sounds are clear and equal
ABDOMEN: Soft with no peritoneal signs, no tenderness
NEUROLOGIC: The patient appears restless, he is moving all extremities equally, he is severely aphasic
PSYCHIATRIC: Impaired insight and judgment
EXTREMITIES: Nontender, no edema
SKIN: No rash, no lesions
NUMBER AND COMPLEXITY OF PROBLEMS ADDRESSED AT THE ENCOUNTER
� Chronic conditions affecting care: High blood pressure, has had bowel obstruction, diverticular disease, diabetes, hypothyroidism
� Acute Exacerbation and/or Progression of Chronic Illness: This is an acute problem
� Differential Diagnosis includes: CVA/TIA, electrolyte abnormality, dehydration
AMOUNT AND/OR COMPLEXITY OF DATA TO BE REVIEWED AND ANALYZED
� I performed an independent evaluation of and my interpretation is:
EKG:
CT: Noncontrast brain CT unremarkable; dissection noted left ICA
X-rays:
Laboratory Studies: Initial blood sugar 183, white count 13.9, hemoglobin 12.1,
Other:
� Review of other/old records: The patient was seen here after an abrasion of the scalp 2 days ago, CAT scan at that time was unremarkable
� Clinical information was obtained by an independent historian: [facility] I also spoke to the daughter over the phone who gives verbal informed consent for TNK
� Prescriptions/Medications Considered but not given:
� Further testing considered but not performed:
RISK OF COMPLICATIONS AND/OR MORBIDITY OR MORTALITY OF PATIENT MANAGEMENT
� Social determinants of health affecting care: Lives at [facility]
� Discussion with other providers:
� Escalation of care including admission/observation vs risk of discharge considered: The patient was seen as a stroke alert as patient has acute aphasia last normal at 1 PM. He is not on any anticoagulation or antiplatelets I
did speak to the nurse at his facility. Initial blood glucose 183.
ANY OTHER UPDATES:
3:30 PM: I was notified by Dr. Monroy indicated the patient has a ICA dissection. I notified Dr. Tubbs who still recommends TNK�this was already given.
Past History
Past History
ED Past Medical History: CAD, CHF, HTN, Hypercholesterolemia, Hypothyroidism and Other (Diverticulitis with perforation 2008, sepsis syndrome after colon reversal 22 complications. Polymyalgia rheumatica, adrenal insufficiency, osteopenia,
Rheumatoid arthritis, SDH, dementia)
ED Past Surgical History: Appendectomy, Bowel resection and Orthopedic (Right femur mello, right foot surgery)
Social History
Tobacco: Non-smoker
Alcohol: Former
Drug: None
Personal:
Living: jail ([facility])
Employment: Retired
Family History
Family History: Hypertension
Phy Exam
Physical Exam
Physical Exam:
See HPI
Scores
NIH Stroke Score
Level of Consciousness: 0 - Alert
LOC Questions: 2-Neither correct
LOC Commands: 2-Performs neither correctly
Best Horizontal Gaze: 0-Normal
Visual Gupta: 0=Normal, no visual loss
Facial Palsy: 0=Normal, symmetrical
Motor - Right Arm: 0=No drift 10 seconds
Motor - Left Arm: 0=No drift 10 seconds
Motor - Right Le-No drift 5 seconds
Motor - Left Le-No drift 5 seconds
Limb Ataxia: 0-Absent
Sensation: 0-Normal
Best Language: 0-No aphasia
Dysarthria: 0-Normal
Extinction and Inattention: 2-Total billy inattention
Total Score:: 6
Course
Orders/Labs/Results
Orders:
Orders
10/13/24 14:42
CT HEAD STROKE ALERT W/o Cont Urgent
Reason For Exam: tia
10/13/24 14:43
Electrocardiogram (*1) Urgent
Reason for Study: TIA/Stroke
EKG- Treatment ONCE
0.9% Sodium Chloride 500 ml [Nss] 500 ml IV BOLUS
10/13/24 14:44
CT Head & Neck Angio W/wo IV Stat
Comment:
Reason For Exam: stroke
10/13/24 14:52
Tenecteplase [Tnkase] 22 mg Syringe [Syringe Non-Pump] 0 ml IV NOW
Provider explained risk/benefits to patient &/or caregiver?: Yes
Blood pressure: 148/62
10/13/24 15:00
Complete Blood Count/With Diff Urgent
Comprehensive Metabolic Panel Urgent
Magnesium Urgent
PTT Urgent
Prothrombin Time Urgent
Troponin I Urgent
10/13/24 15:31
Admit/Transfer Patient As Directed
Co-Sign Provider:
Level of Care: Inpatient admission
Assign to:: ICU
Physician / Group: [email or web address]
Diagnosis: Acute stroke within TNK window ; suspect Lt MCA territory
Reason for Hospitalization: Acute stroke within TNK window ; suspect MCA territory
Expected length of stay greater than two midnights?: Yes
ELOS- Estimated Length of Stay in days: 4
I certify the patient meets the requirements for IP care: Yes
10/13/24 16:16
Dextrose 50%-Water [Dextrose 50% Syringe] 12.5 grams IV [id number] PRN
Glucagon [GlucaGen] 1 mg IM PRN PRN
Labetalol HCl [Trandate] 5 mg IV Q6HPRN PRN
10/13/24 16:16
Type+Screen Routine
Case Management Consult Once
Case Management Consult: Discharge Planning
DIETARY CONSULT Routine
Reason for Consult: stroke/TIA
NEUROLOGY CONSULT Urgent
Consulting Provider: Jewel Tubbs
Was physician already notified: Yes
Reason for consult: stroke alert
[employer] Driver Urgent
Bedside Glucose Monitoring As Directed
Frequency: AC&HS
Additional Instructions:: Change to q6h if pt on TPN, tube feeding or not eating
Compression Sleeves [Pneumatic Compression Sleeves] As Directed
Type: Knee high
Notify MD As Directed
Notify physician if: SBP not at goal within 30 minutes of prn LABETALOL administration.
notify provider to initiate continuous infusion of nicardipine or clevidipine.
Ot Eval And Treat Routine
Physiatry Consult Routine
Consulting Provider: Salvatore Gallagher
Was physician already notified: Yes
Reason for consult: stroke/TIA
Pt Eval And Treat Routine
Activity Level: With Assistance
Speech Therapy Eval & Treat Routine
DX Deep Vein Thrombosis Video Routine
10/13/24 16:30
Insulin Aspart Corrective Low [Novolog Flexpen-Low Resistance] See Protocol SC AC
10/13/24 22:00
Tamsulosin [Flomax] 0.4 mg PO HS
simvastatin 40 mg PO HS
10/14/24 06:00
Basic Metabolic Panel IN AM
Cardiovascular Evaluation IN AM
Complete Blood Count/No Diff IN AM
Glycohemoglobin (HgbA1c) IN AM
Prothrombin Time IN AM
10/14/24 08:00
Levothyroxine [Synthroid] 88 mcg PO DAILY
Metoprolol Xl [Toprol Xl] 25 mg PO DAILY
Pantoprazole [Protonix] 40 mg PO DAILY
Prednisone [Deltasone] 2.5 mg PO DAILY
Sertraline HCl [Zoloft] 75 mg PO DAILY
Abnormal Lab Results
10/13/24 10/13/24
14:36 15:00
WBC 13.9 H 10^3/uL
(4.8-10.8)
RBC 4.22 L 10^6/uL
(4.70-6.10)
Hgb 12.1 L g/dL
(13.0-18.0)
Hct 36.9 L %
(39.0-52.0)
MCHC 32.8 L g/dL
(33.0-37.0)
RDW 15.1 H %
(11.5-14.5)
Plt Count 543 H 10^3/uL
(130-400)
Abs Immat Gran (auto) 0.1 H 10^3/uL
(0-0.05)
Absolute Neuts (auto) 8.2 H 10^3/uL
(1.4-6.5)
Absolute Lymphs (auto) 4.2 H 10^3/uL
(1.2-3.4)
Absolute Monos (auto) 1.3 H 10^3/uL
(0.1-0.6)
Monocytes % 9.4 H %
(1.7-9.3)
Carbon Dioxide 18 L mmol/L
(22-30)
BUN 23 H mg/dl
(9-20)
Creatinine 2.0 H mg/dL
(0.7-1.3)
Glucose 175 H mg/dl
(70-99)
POC Glucose 183 H mg/dl
(70-99)
10/13/24 15:00
10/13/24 15:00
Vital Signs
Initial and Last Documented VS:
Initial Vital Signs
BP
148/62
10/13/24 14:26
Last Documented Vital Signs
Temp Pulse Resp BP Pulse Ox
36.4 C 92 20 168/74 86
10/13/24 16:25 10/13/24 16:31 10/13/24 16:31 10/13/24 16:30 10/13/24 16:31
*Critical Care Note
Total Time (30-74mins, 75-104mins- exclusive of procedures): 55min
comment:
The patient is seen as Stroke Alert. Discussion w/ neuro emergently and decision made to give TNK. Emergently d/w daughter over phone and she agrees w/ trying TNK.
ED Attending Note
-
Portions of this chart may have been created with voice recognition software.� Occasional wrong word or��sound alike� substitutions may have occurred due to the inherent limitations of voice recognition software.
Discharge Plan
Departure
Patient Disposition: Admit
Date of Disposition: 10/13/24
Time of Disposition: 15:12
Presentation/result/management discussed w/ accepting MD/DO: Hospitalist
Patient with high blood pressure during this ER visit?: Yes
Discharge Problem:
Acute cerebrovascular accident (CVA)
Interventions
Interventions:
*Risk Screen - Suicide Last Done: 10/13/24 15:46
*General Assessment Last Done: 10/13/24 14:26
*Neglect/Abuse Screening Last Done: 10/13/24 15:46
*ED- Fall Risk Assessment Last Done: 10/13/24 15:46
*ED COVID-19 Vaccine History Last Done: 10/13/24 15:46
ED- Neurological Assessment Last Done: 10/13/24 14:45
--- NOTE | 2024-10-13 14:45 | CON.NEURO ---
Neuro Assessment/Plan
Assessment
Acute stroke, will treat with TNK as NIHSS 6, within the window
Dtr consented to TNK
Head CT imgs rev'd, no bleed
CTA imgs rev'd, no LVO, left carotid calcification, right carotid stenosis, awati report
Plan
Admit to MICU for 24 hours of frequent neurochecks.�
neurochecks q1, Frequent vital signs Q15min x 2hrs, then Q30min x 6hrs, then Q1H x 16hrs until stable from the start of TNK.�
�tele, accuchecks/ISS. Repeat Head CT in 24 hours
Blood pressure goals: <180/105 and MAP 80-100� in the acute period.� If BP elevated for 2 readings, preferred agents include IV labetalol or nicardipine.� Vasopressors as necessary to maintain MAP and CPP.�
Glucose goals: Maintain euglycemia using sliding scale insulin. If glucose >180 for two consecutive readings, please use MICU insulin protocol.�
Temperature goals: maintain normothermia�
Diagnostic tests: MRI brain without contrast, ECHO with bubble.�
Consultation
Order
Date of Consultation: 10/13/24
Requesting Provider: Mars Leonard
Reason for Consult: stroke alert
Subjective/Objective
Subjective Data
Date of Service: October 13, 2024
79 year old man from long term, baseline some dementia but normally oriented and conversant. Last seen normal 1pm, later this afternoon family talking to him and he was aphasic. 'I want to go to fire' 'I want to sit on the tire' which is a major
acute change for him
Objective Data
Vital Signs
BP
148/62
10/13/24 14:26
Patient Allergies
diflunisal Allergy (Verified 06/19/22 12:39)
WIGGINS JOHNSONS SYNDROME
penicillin V Allergy (Verified 06/19/22 12:39)
Anaphylaxis
pentazocine Allergy (Verified 06/19/22 12:39)
DIFFICULTY BREATHING, HALLUCINATIONS
tramadol HCl [From Ultram] Allergy (Verified 06/19/22 12:39)
HALLUCINATIONS
CVA Assessment
Onset of Stroke Symptoms
Time pt last seen normal is known: Yes
Date last time pt seen normal: 10/13/24
Time last time pt seen normal: 13:00
NIH Stroke Score
Level of Consciousness: 0 - Alert
LOC Questions: 2-Neither correct
LOC Commands: 0-Performs both correctly
Best Horizontal Gaze: 0-Normal
Visual Gupta: 0=Normal, no visual loss
Facial Palsy: 1=Minor paralysis
Motor - Right Arm: 1=Drift < 10 seconds
Motor - Left Arm: 0=No drift 10 seconds
Motor - Right Le-No drift 5 seconds
Motor - Left Le-No drift 5 seconds
Limb Ataxia: 0-Absent
Sensation: 0-Normal
Best Language: 2-Severe aphasia
Dysarthria: 0-Normal
Extinction and Inattention: 0-No abnormality
Total Score:: 6
Physical Exam
-
Disoriented
severely aphasic
right nasolabial flattening
Medications
-
Active Medications
Generic Name Dose Route Start Last Admin
Trade Name Freq PRN Reason Stop Dose Admin
Sodium Chloride 500 mls @ 1,000 mls/hr 10/13/24 14:43
Nss IV 10/13/24 15:12
BOLUS ONE
Home Medications
�Medication �Instructions �Recorded
metoprolol succinate 50 mg 50 mg PO QPM Blood Pressure 10/06/17
tablet,extended release 24 hr
pantoprazole 40 mg tablet,delayed 40 mg PO DAILY GERD 10/06/17
release
levothyroxine 88 mcg tablet 88 mcg PO DAILY Thyroid 01/05/18
(Levoxyl)
wdbpqupe-lg-cafuo 300 mcg-K 60 1 ea PO DAILY Supplement 01/05/18
mcg-lycop 600 mcg-lutein 300 mcg
tablet (Centrum Silver Men)
fluoride (sodium) 1.1 % dental gel 1 applic dental DAILY DENTAL CARE 04/08/20
(DentaGel)
methenamine hippurate 1 gram 1 gm PO BID Urinary Issue 04/08/20
tablet (Hiprex)
simvastatin 40 mg tablet 40 mg PO HS High Cholesterol 04/08/20
acetaminophen 325 mg tablet 650 mg PO Q6HPRN PRN mild 03/11/24
pain/fever
calcium 600 mg (as 1 tab PO BID Supplement 03/11/24
carbonate)-vitamin D3 10 mcg (400
unit) tablet (Calcium 600 + D(3))
estradiol 0.1 mg/24 hr semiweekly 1 patch transdermal MOTH@1830 03/11/24
transdermal patch Hormonal Agent
insulin glargine 100 unit/mL (3 9 unit SC HS diabetes 03/11/24
mL) subcutaneous pen (Lantus
Solostar U-100 Insulin)
loperamide 2 mg tablet 2 mg PO Q6HPRN PRN loose stool 03/11/24
metformin 500 mg tablet 500 mg PO BID diabetes 03/11/24
mirtazapine 7.5 mg tablet 7.5 mg PO HS depression/insomnia 03/11/24
prednisone 5 mg tablet 2.5 mg PO DAILY Anti-Inflammatory 03/11/24
sertraline 50 mg tablet 75 mg PO DAILY depression/anxiety 03/11/24
tamsulosin 0.4 mg capsule 0.4 mg PO HS Urinary Issue 03/11/24
ciprofloxacin HCl 500 mg tablet 500 mg PO Q12H #14 tabs 03/26/24
(Cipro)
[2024-10-13 15:08] LABS: % Basophils 0.4 % (0-2); % Eosinophils 0.6 % (0-6); % Immature Granulocytes 0.4 % (0-0.5); % Lymphocytes 30.4 % (20.5-51.1); % Monocytes 9.4 % (1.7-9.3); % Neutrophils 58.8 % (42.2-75.2); Absolute Basophils 0.1 10^3/uL (0-0.2); Absolute Eosinophils 0.1 10^3/uL (0-0.7); Absolute Immature Granulocytes 0.1 10^3/uL (0-0.05); Absolute Lymphocytes 4.2 10^3/uL (1.2-3.4); Absolute Monocytes 1.3 10^3/uL (0.1-0.6); Absolute Neutrophils 8.2 10^3/uL (1.4-6.5); Hematocrit 36.9 % (39.0-52.0); Hemoglobin 12.1 g/dL (13.0-18.0); Mean Corp Hgb Conc. 32.8 g/dL (33.0-37.0); Mean Corpuscular Hgb 28.7 pg (27.0-31.0); Mean Corpuscular Volume 87.4 fL (80.0-94.0); Mean Platelet Volume 9.2 fL (7.4-10.4); Nucleated Red Blood Cells % 0 % (-); Platelet Count 543 10^3/uL (130-400); Red Blood Cell Count 4.22 10^6/uL (4.70-6.10); Red Cell Dist. Width 15.1 % (11.5-14.5); White Blood Cell Count 13.9 10^3/uL (4.8-10.8)
[2024-10-13] MEDS: NSS 500 IV (15:09)
[2024-10-13] MEDS: TNKASE 4.4 MG IV (15:11)
[2024-10-13 15:16] LABS: INR 0.98; PT 13.3 Sec (11.4-14.6)
[2024-10-13 15:17] LABS: APTT 28.1 Sec (23.4-35.0)
[2024-10-13 15:22] LABS: ALT (SGPT) 19 U/L (0-50); AST (SGOT) 29 U/L (17-59); Albumin 4.4 g/dl (3.5-5.0); Alkaline Phosphatase 121 U/L (38-126); Blood Urea Nitrogen 23 mg/dl (9-20); Carbon Dioxide 18 mmol/L (22-30); Chloride 98 mmol/L (98-107); Glucose 175 mg/dl (70-99); Magnesium 1.9 mg/dl (1.6-2.3); Potassium 5.1 mmol/L (3.5-5.1); Sodium 135 mmol/L (135-145); Total Bilirubin 0.6 mg/dl (0.2-1.3); Total Protein 7.5 g/dl (6.3-8.2); eGFR 33.12
--- NOTE | 2024-10-13 15:27 | HPS.HSE ---
Family Physician
-
Family Physician:
Chief Complaint
-
stroke alert
History of Present Illness
I could not get any information from the patient due to acuity and dementia
Information gathered by chart review and speaking with the ER staff.
HPI
79M NH Res , HX Dementia , HLD, DM, CAD, CKD3b, HX SDH seen at ER for stroke alert:
- has baseline some dementia but normally oriented and conversant.
- Last seen normal 1pm, later this afternoon family talking to him and he was dysphasix phasic. 'I want to go to fire' 'I want to sit on the tire' which is a major acute change of language and speech
- RN noted R face droop and RUE weakness
Medical History
Past Medical History
Past Medical History: Reports Other (CAD, diabetes, hypertension, hypercholesteremia, hypothyroidism, diverticulitis with perforation status post colon resection, polymyalgia rheumatica, adrenal insufficiency, osteopenia, rheumatoid arthritis,
subdural hematoma, dementia, BPH)
Past Surgical History: Reports Other ( Appendectomy, Bowel resection and Orthopedic (Right femur mello, right foot surgery))
Social History
Tobacco: Non-smoker
Alcohol: Occasional
Drug: None
Family History
Family History: Not pertinent
Allergies / Home Medications
Allergies reflects when Allergies were last updated in [facility].
Home Medications with original date entered in [facility]
Allergy/Medication List:
Allergies
Allergy/AdvReac Type Severity Reaction Status Date / Time
diflunisal Allergy WIGGINS Verified 06/19/22 12:39
JOHNSONS
SYNDROME
penicillin V Allergy Anaphylaxis Verified 06/19/22 12:39
pentazocine Allergy DIFFICULTY Verified 06/19/22 12:39
BREATHING,
HALLUCINATIONS
tramadol HCl [From Ultram] Allergy HALLUCINATI Verified 06/19/22 12:39
ONS
Home Medications
metoprolol succinate 50 mg tablet,extended release 24 hr 50 mg PO QPM 10/06/17
pantoprazole 40 mg tablet,delayed release 40 mg PO DAILY 10/06/17
levothyroxine 88 mcg tablet (Levoxyl) 88 mcg PO DAILY 01/05/18
odtgrpcs-rg-cuxge 300 mcg-K 60 mcg-lycop 600 mcg-lutein 300 mcg tablet (Centrum Silver Men) 1 ea PO DAILY 01/05/18
fluoride (sodium) 1.1 % dental gel (DentaGel) 1 applic dental DAILY 04/08/20
methenamine hippurate 1 gram tablet (Hiprex) 1 gm PO BID 04/08/20
simvastatin 40 mg tablet 40 mg PO HS 04/08/20
acetaminophen 325 mg tablet 650 mg PO Q6HPRN PRN mild pain/fever 03/11/24
calcium carbonate 600 mg-vitamin D3 10 mcg (400 unit) tablet (Calcium 600 + D(3)) 1 tab PO BID 03/11/24
estradiol 0.1 mg/24 hr semiweekly transdermal patch 1 patch transdermal MOTH@1830 03/11/24
insulin glargine 100 unit/mL (3 mL) subcutaneous pen (Lantus Solostar U-100 Insulin) 9 unit SC HS 03/11/24
loperamide 2 mg tablet 2 mg PO Q6HPRN PRN loose stool 03/11/24
metformin 500 mg tablet 500 mg PO BID 03/11/24
mirtazapine 7.5 mg tablet 7.5 mg PO HS 03/11/24
prednisone 5 mg tablet 2.5 mg PO DAILY 03/11/24
sertraline 50 mg tablet 75 mg PO DAILY 03/11/24
tamsulosin 0.4 mg capsule 0.4 mg PO HS 03/11/24
Review of Systems
-
Unable to obtain full review of systems at this time due to: Dementia
Physical Exam
Vital Signs
Vital Signs
Pulse Resp BP Pulse Ox
81 26 130/66 98
10/13/24 15:19 10/13/24 15:19 10/13/24 15:19 10/13/24 14:45
Physical Exam
General: No Apparent Distress, Comfortable and Conversant (dysphasic )
HEENT: Other (lt facial droop )
Respiratory: Clear
Cardiac: S1/S2 and Regular Rhythm; No Murmur
Breast: Deferred by me
GI: Soft, Non Tender, Non Distended and Normal Bowel Sounds
Musculoskeletal: Other
Skin: Warm
Neuro: Awake and Alert
Psych: Confused
Laboratory Results
-
10/13/24 15:00
10/13/24 15:00
Laboratory Results
PT 13.3 Sec (11.4-14.6) 10/13/24 15:00
INR 0.98 10/13/24 15:00
APTT 28.1 Sec (23.4-35.0) 10/13/24 15:00
Total Bilirubin 0.6 mg/dl (0.2-1.3) 10/13/24 15:00
AST 29 U/L (17-59) 10/13/24 15:00
ALT 19 U/L (0-50) 10/13/24 15:00
Alkaline Phosphatase 121 U/L (38-126) 10/13/24 15:00
Data Reviewed
-
CT Scan: Report Reviewed by me
Medical Tests (Nuc Med, Echo, EKG etc): Report Reviewed by me
Lab Data: Labs Reviewed by me
Old Records: Reviewed
Impression/Plan
-
Vital Signs
Pulse Resp BP Pulse Ox
81 26 130/66 98
10/13/24 15:19 10/13/24 15:19 10/13/24 15:19 10/13/24 14:45
Laboratory Tests
03/13/24 03/26/24 10/13/24
09:13 08:20 14:36
WBC 11.8 H
Hgb 11.9 L
Plt Count 424 H
Creatinine 1.9 H 2.2 H
eGFR 35.22 29.54
AST
ALT
Troponin I
POC Glucose 183 H
10/13/24
15:00
WBC 13.9 H
Hgb 12.1 L
Plt Count
Creatinine Pending
eGFR
AST Pending
ALT Pending
Troponin I Pending
POC Glucose
HCT
No bleed
No evidence of acute intracranial abnormality.
ASPECT score: 10
Prelim H & N CTA per Neuro read
no LVO
left carotid calcification
right carotid stenosis
Last hospitalist admission: 03/11/2024 - 03/13/2024
DC DXs
1. Concern for urinary tract infection when patient reported being dysuric as well as being treated for urinary tract infection prior to presentation at senior living facility.
2. Acute kidney injury initially suspected although ruled out whilepatient's creatinine at the baseline around 2.
ASSESSMENT & PLAN
Acute stroke within TNK window ; suspect Lt MCA territory stroke
Acute expressive dysphasia with Rt facial droop , Rt UEx weakness : NIHSS 6 and Neuro indicate TNK
Of note : HX subdural hematoma
- Dtr consented to TNK will treat wiht TNK
- to MICU for 24 hours of frequent neuro checks.
- neuro checks q1
- frequent vital signs Q15min x 2hrs, then Q30min x 6hrs, then Q1H x 16hrs until stable from the start of TNK.
- repeat Head CT in 24 hours
- BP goals: <180/105 and MAP 80-100 in the acute period.
- If BP elevated for 2 readings, preferred agents include IV labetalol or nicardipine.
- Vasopressors as necessary to maintain MAP and CPP.
- Temp goals: maintain normothermia
- Later MRI brain without contrast and ECHO with bubble.
T2DM
- Glucose goals: maintain euglycemia using ISS low
- If glucose >180 for two consecutive readings, please use MICU insulin protocol.
- hold Lantus 9 units
- hold metformin
Essential hypertension
- BP goals: <180/105 and MAP 80-100 in the acute period.
- If BP elevated for 2 readings, preferred agents include IV labetalol or nicardipine.
- on MARKET SURVEY REPRESENTATIVE metoprolol
HX CKD 3b
- f/u Cr
Dementia/depression
- on MARKET SURVEY REPRESENTATIVE mirtazapine, sertraline
CAD HX
Hypercholesterolemia
- on statin
Hypothyroidism
- on levothyroxine
Diverticulitis with perforation status post colon resection
Polymyalgia rheumatica
Rheumatoid arthritis
Osteopenia
Secondary Adrenal insufficiency due chronic steroid use
- on MARKET SURVEY REPRESENTATIVE prednisone
BPH
- on tamsulosin
HX UTI Urinary tract infection
DVT Px: on TNK
Full code
MICU
Total Critical Care Time__55__ minutes. I was immediately available to the patient and staff. I personally examined, reviewed labs, diagnostic images/reports, interpretations, treatment plans, discussed patient care with other providers and
family or caregivers (if patient is unable to make decisions), entered orders as appropriate and documented the medical record.
[2024-10-13 15:32] LABS: Troponin I < 0.012 ng/ml
--- NOTE | 2024-10-13 16:33 | PTCARENOTE ---
Received patient from ER. patient is alert, following commands, confused, has dementia. Has severe aphagia but appears very confused, charting done in paient's room as patient is unable to be redirected. He is on room air with oxygen saturation
at 99%. Continues to pull off leads and pulse ox during time of assessment. He is sinus rhythm on montior. SBP ordered 110-185. He is due for swallow eval, incontinent of blowel and bladder, attempting to get OOB. Will review orders, NIHSS
scored 5, slight droop on right side, severe aphasia and unable to answer questions appropriately. will review orders and maintain safe environment
--- NOTE | 2024-10-13 16:35 | CON.INTV ---
Consultation
Consultation Request
Date/Time Consultation Requested: 10/13/2024
Date/Time Consultation Performed: 10/13/2024
Requesting Provider: Dr. Freedman
Performing Provider: Dr. Burch
Reason for Consultation: s/p TNK
Medical History
-
Chief Complaint: Altered mental status
History of Present Illness:
79-year-old male non-smoker with a past medical history of dementia, CVA, GERD, constipation, history of SDH s/p ghansyham hole, polymyalgia rheumatica, history of RA, JUAN JOSE, CKD, hypothyroidism, history of alcohol abuse, CAD, history of SAH, BPH, DM type
II, and history of ruptured diverticulitis with colectomy/colostomy who presents with altered mental status. Patient has a ride from [facility] via EMS. Patient became aphasic during the day mixing up his words and had a suspected right
facial droop. Stroke alert called at 2:33 PM on 10/13/2024. He was reportedly last seen normal at 1 PM on 10/13/2024. He was saying things like 'I want to go to fire' and 'I want to sit on the tire.' In the ER, BP was 148/62, pulse rate 90,
respiratory rate 22 and saturating 98%. Initial labs showed WBC 13.9, Hb 12.1, platelet count 543, INR 0.98, creatinine 2, serum bicarbonate level 18, glucose 175, and troponin negative at <0.012. CT head showed no acute intracranial abnormality,
and CTA head/neck showed a left ICA dissection beginning at the mid cervical portion of the left ICA at the cervical to level and extending contiguously through the distal petrous portion of the left ICA. Also 70% stenosis of the right ICA. Of
note he was here in the ER on 10/11/2024 after he fell and hit the back of his head - CT head at that time showed no acute intracranial abnormality, and CT C-spine showed no acute fracture or dislocation. In the ER he was given 500 cc bolus of NS
0.9%. Neurology consulted and he was considered a TNK candidate, and TNK was administered at 15:11 on 10/13/2024. Patient admitted to the ICU and bookkeeping clerks supervisor services consulted for additional management/recommendations.
Patient arrived to the ICU at approximately 4:30 PM on 10/13/2024. When I saw the patient, he was in bed, seemingly confused, trying with his left arm to either get out of bed or away his hand. BP 145/71 and heart rate 91. Patient's daughter,
Ivana, at bedside. According to her, he had slurred speech earlier today and was in a different patient's room, which is completely not like him. He was speaking nonsensical speech, which again is not like him. He currently is in no acute distress
but is unable to speak.
PMHx: Chronic constipation, chronic pain syndrome, GERD, history of ruptured diverticulitis with colectomy/colostomy, ED, history of subdural hematoma s/p ghanshyam hole evacuation, osteoarthritis, PMR, hyperlipidemia, hypertension, hypogonadism, BPH, DM
type II, rotator cuff tear s/p arthroscopy, history of TBI, depression, adrenal insufficiency, diverticulosis, JUAN JOSE, RA, CKD, neuropathy, hypothyroidism, secondary hyperparathyroidism, CAD, osteopenia, history of alcohol abuse, seizures, history of
SAH, history of stroke, history of MRSA, dementia
PSHx: Cataract extraction, appendectomy, colectomy, colostomy and reversal with repair of e-v fistula, subdural hematoma (2012), fifth metatarsal surgery with hardware, bladder fistula surgery, carpal tunnel release (left), right femur ORIF, cardiac
catheterization and robotic IPOM repair multiple incisional hernias/ALYSSA
Past Medical History
Past Medical History: Other (Above as per HPI)
Past Surgical History: Other (Above as per HPI)
Social History
Tobacco: Non-smoker
Alcohol: None
Drug: None
Family History
Family History: Cancer (Mother: Breast cancer), Hypertension (Mother) and Other (Father: Parkinson's disease)
Allergies / Home Medications
Allergies
Allergy/AdvReac Type Severity Reaction Status Date / Time
diflunisal Allergy ROSALIE Verified 06/19/22 12:39
JOHNSONS
SYNDROME
penicillin V Allergy Anaphylaxis Verified 06/19/22 12:39
pentazocine Allergy DIFFICULTY Verified 06/19/22 12:39
BREATHING,
HALLUCINATIONS
tramadol HCl [From Ultram] Allergy HALLUCINATI Verified 06/19/22 12:39
ONS
Home Medications
�Medication �Instructions �Recorded �Confirmed �Last Taken �Type
pantoprazole 40 mg tablet,delayed 40 mg PO DAILY GERD 10/06/17 10/13/24 10/05/17 History
release
levothyroxine 88 mcg tablet 88 mcg PO DAILY Thyroid 01/05/18 10/13/24 Unknown History
(Levoxyl)
fluoride (sodium) 1.1 % dental gel 1 applic dental DAILY DENTAL CARE 04/08/20 10/13/24 Unknown History
(DentaGel)
simvastatin 40 mg tablet 40 mg PO HS High Cholesterol 04/08/20 10/13/24 Unknown History
acetaminophen 325 mg tablet 650 mg PO Q6HPRN PRN mild 03/11/24 10/13/24 Unknown History
pain/fever
calcium 600 mg (as 1 tab PO BID Supplement 03/11/24 10/13/24 Unknown History
carbonate)-vitamin D3 10 mcg (400
unit) tablet (Calcium 600 + D(3))
estradiol 0.1 mg/24 hr semiweekly 1 patch transdermal MOTH@1830 03/11/24 10/13/24 Unknown History
transdermal patch Hormonal Agent
loperamide 2 mg tablet 2 mg PO Q6HPRN PRN loose stool 03/11/24 10/13/24 Unknown History
prednisone 5 mg tablet 2.5 mg PO DAILY Anti-Inflammatory 03/11/24 10/13/24 Unknown History
sertraline 50 mg tablet 75 mg PO DAILY depression/anxiety 03/11/24 10/13/24 Unknown History
tamsulosin 0.4 mg capsule 0.4 mg PO HS Urinary Issue 03/11/24 10/13/24 Unknown History
metoprolol succinate 25 mg 25 mg PO DAILY Blood Pressure 10/13/24 10/13/24 Unknown History
tablet,extended release 24 hr
therapeutic multivitamin 1 tab PO DAILY Supplement 10/13/24 10/13/24 Unknown History
Review of Systems
-
Unable to Obtain full review of systems at this time due to: Acuity
Vitals / Labs / Diagnostic Testing
Vital Signs
Temp Pulse Resp BP Pulse Ox
97.5 F 77 18 135/70 98
10/13/24 16:25 10/13/24 17:15 10/13/24 17:15 10/13/24 17:15 10/13/24 17:00
Lab Data
10/13/24 15:00
10/13/24 15:00
Laboratory Results
10/13/24
15:00
PT 13.3
INR 0.98
APTT 28.1
Diagnostic Testing:
Physical Exam
-
HEENT: Normocephalic and Anicteric
Cardiovascular: S1/S2, Rub (negative) and Peripheral Edema (negative)
Respiratory: Wheeze (negative), Rales (negative), Rhonchi (negative) and Accessory Resp Muscle Use (Tachypneic)
GI: Soft, Non Distended, Non Tender and Normal Bowel Sounds
Neurology: Awake, Tremors (negative) and Other (No movement seen in right lower extremity, reduced movement seen in right upper extremity. Unable to assess other neurological functions as he does not understand all my commands)
Skin: Warm and Dry
General: Respiratory Distress (negative), Comfortable, Fever (negative) and Chills (negative)
Assessment
-
Assessment: 79-year-old male non-smoker with a past medical history of dementia, CVA, GERD, constipation, history of SDH s/p ghanshyam hole, polymyalgia rheumatica, history of RA, JUAN JOSE, CKD, hypothyroidism, history of alcohol abuse, CAD, history of SAH,
BPH, DM type II, and history of ruptured diverticulitis with colectomy/colostomy who presents with altered mental status. Patient has a ride from [facility] via EMS. Patient became aphasic during the day mixing up his words and had a
suspected right facial droop. Stroke alert called at 2:33 PM on 10/13/2024. He was reportedly last seen normal at 1 PM on 10/13/2024. He was saying things like 'I want to go to fire' and 'I want to sit on the tire.' In the ER, BP was 148/62, pulse
rate 90, respiratory rate 22 and saturating 98%. Initial labs showed WBC 13.9, Hb 12.1, platelet count 543, INR 0.98, creatinine 2, serum bicarbonate level 18, glucose 175, and troponin negative at <0.012. CT head showed no acute intracranial
abnormality, and CTA head/neck showed a left ICA dissection beginning at the mid cervical portion of the left ICA at the cervical to level and extending contiguously through the distal petrous portion of the left ICA. Also 70% stenosis of the right
ICA. Of note he was here in the ER on 10/11/2024 after he fell and hit the back of his head - CT head at that time showed no acute intracranial abnormality, and CT C-spine showed no acute fracture or dislocation. In the ER he was given 500 cc bolus
of NS 0.9%. Neurology consulted and he was considered a TNK candidate, and TNK was administered at 15:11 on 10/13/2024. Patient admitted to the ICU and bookkeeping clerks supervisor services consulted for additional management/recommendations.
Chronic conditions NUTRITION PROFESSOR: Chronic constipation, chronic pain syndrome, GERD, history of ruptured diverticulitis with colectomy/colostomy, ED, history of subdural hematoma s/p ghanshyam hole evacuation, osteoarthritis, PMR, hyperlipidemia, hypertension,
hypogonadism, BPH, DM type II, rotator cuff tear s/p arthroscopy, history of TBI, depression, adrenal insufficiency, diverticulosis, JUAN JOSE, RA, CKD, neuropathy, hypothyroidism, secondary hyperparathyroidism, CAD, osteopenia, history of alcohol abuse,
seizures, history of SAH, history of stroke, history of MRSA, dementia
Impression:
#Expressive aphasia with right-sided facial droop with concern for left-sided CVA s/p TNK
#Leukocytosis
#Metabolic acidosis with increased anion gap
#CKD (baseline creatinine 1.9�2.2)
#Chronic anemia
#Chronic thrombocytosis
#History of UTI due to E. coli, Pseudomonas aeruginosa, Shanti albicans, Enterococcus faecium, and group D Enterococcus
#History of multiple falls with most recent fall on 10/11/2024
#GERD
#History of stroke
#History of subdural hematoma s/p bur hole evacuation (2011)
#History of ruptured diverticulitis with colectomy/colostomy
Plan:
- Strict BP with goal <180/105 mmHg with permissive HTN
- q1hr neurochecks with NIHSS q shift
- Stat CT head for any sudden change in neuro status
- Neuro consulted and recs appreciated
- Hold antiplatelet/anticoagulants for now until deemed necessary per neurology
- MRI brain tomorrow about 24 hours s/p TNK
- Check lipid panel + A1c (last A1c was 5.8 on 03/12/2024)
- Maintain euglycemia with goal BG 140-180
- Maintain normothermia
- Maintain SpO2 >92-94%
- Check echo with bubble study
- No food intake until seen by ACOUSTICAL TILE PATTERNMAKER; RN can perform bedside swallow screen to see if he can take sips of water and other essential medications
- Replete electrolytes with K>4, Mg>2
- PT/OT and possibly physiatry consult
- Given the left ICA dissection with 70% stenosis of the right ICA which is suspected to be hemodynamically significant, recommend vascular consult --> I reached out to Dr. Austin via tiger text, and he is reviewing the imaging now. Pt's daughter,
Ivana, is at bedside if consent for any procedure needs to be done.
- I also discussed this finding of his CTA head/neck with neurology, and they recommend to start either DAPT or anticoagulation, at the earliest would start this tomorrow given that he got TNK today
- Official decision to be deferred to neurology + vascular surgery
-Trend serum bicarbonate level
- Trend WBC count and monitor for fevers
- He currently appears nontoxic hence no need for antibiotics at this time
- No obvious consolidation seen on current CXR, although he does appear to have atelectasis at the lateral left lower lobe
- Trend H/H and transfuse if needed to keep Hb>7g/dL; keep plt>100k
- prn nebulized bronchodilators - not currently bronchospastic
- Incentive spirometer encouraged 10x per hour for at least 4 hrs a day
- DVT ppx: SCDs for now
Code status: Per his living will, he is DNR/DNI ---> order changed in [employer]
Continue ICU level care for this critically ill patient.
Critical care statement: A total of 42 minutes of critical care time was provided for this patient today. This includes management of unstable vital signs, evaluation of the patient at bedside, reviewing the patient's pertinent medical records
including radiographs, microbiology, laboratory evaluations, and discussion with primary team, consultants, pharmacy, nutrition, physical therapy, case management, charge nurse, critical care nursing, and respiratory therapy.
Data:
CTA head/neck with/without contrast 10/13/2024:
There is left ICA dissection, beginning in the mid cervical portion of the left ICA at the C2 level, and extending contiguously through the distal petrous portion of the left ICA. There does not appear to be involvement of the cavernous portion of
the left ICA. There is contrast opacification of the true and false lumen of the dissection.
Calcific atherosclerotic disease involving the right carotid bulb and proximal right ICA with measured diameter reduction of 70%, which is likely hemodynamically significant.
On the left, measured diameter reduction of 36%, unlikely to be hemodynamically significant.
Anterior cerebral and middle cerebral arteries appear within normal limits.
Vertebral and basilar arteries appear within normal limits with no evidence for high-grade narrowing or dissection. Posterior cerebral arteries appear normal.
[2024-10-13 17:19] LABS: Glucose - Point of Care 144 mg/dl (70-99)
--- NOTE | 2024-10-13 18:11 | W.PN.UPDATE ---
Addendum entered and electronically signed by Martínez Burch MD 10/14/24 13:20:
Of note, I did speak with the patient's daughter on 10/13/2024, and she wanted the pt to stay here at and continue to monitor overnight until vascular surgery and neurology saw the patient tomorrow (10/14). All questions were answered. According
to the daughter, the pt would not want any invasive measures.
Original Note:
Update Note
Progress Note Update
CTA head/neck imaging reviewed with vascular surgery. Dr. Austin recommends transfer to tertiary care center where there is neurosurgical and neurological IR availability. Closest hospital would likely be [facility]. I will discuss this with the family
and the hospitalist and if family would like to pursue this transfer, then Transfer Center should be notified.
--- NOTE | 2024-10-13 20:05 | PTCARENOTE ---
Received pt from previous RN. Pt is AAOx1 to self, right facial droop, aphasic. NIH 11 (see worklist). Pt confused, pulling at school cafeteria cook and BP cuff, attempt to redirect pt, daughter at bedside. NSR on the monitor. On RA, O2 sat 99%, lungs are
diminished, tachypneic. Pt incont x2. Pt vomited, states he is not nauseous. SCDs in place. CHG and mouth care provided. Bed alarm in place. Family @ bedside. Safe environment maintained.
[2024-10-13] MEDS: FLOMAX PO (21:32)
[2024-10-13 23:31] LABS: Glucose - Point of Care 205 mg/dl (70-99)
[2024-10-14] VITALS (54 sets, daily range): BP systolic 90–143; BP diastolic 36–87
[2024-10-14] MEDS: NOVOLOG FLEXPEN-LOW RESISTANCE 2 UNITS SC
--- NOTE | 2024-10-14 00:18 | PTCARENOTE ---
Systems reviewed, no new changes in assessment. Pt drowsy @ times, arousable. Answers minimal questions with yes/no. Neuro checks per protocol (see worklist). Pt incont x2, hygiene provided. Safe environment maintained.
--- NOTE | 2024-10-14 03:48 | PTCARENOTE ---
Systems reviewed, no new change in assessment. Neuro check per protocol (see worklist). Safe environment maintained.
[2024-10-14 03:53] LABS: Hematocrit 34.5 % (39.0-52.0); Hemoglobin 11.7 g/dL (13.0-18.0); Mean Corp Hgb Conc. 33.9 g/dL (33.0-37.0); Mean Corpuscular Hgb 28.4 pg (27.0-31.0); Mean Corpuscular Volume 83.7 fL (80.0-94.0); Mean Platelet Volume 8.7 fL (7.4-10.4); Platelet Count 490 10^3/uL (130-400); Red Blood Cell Count 4.12 10^6/uL (4.70-6.10); Red Cell Dist. Width 14.8 % (11.5-14.5); White Blood Cell Count 12.3 10^3/uL (4.8-10.8)
[2024-10-14 04:18] LABS: PT 14.6 Sec (11.4-14.6)
[2024-10-14 04:25] LABS: Blood Urea Nitrogen 20 mg/dl (9-20); Calcium 9.1 mg/dl (8.4-10.2); Carbon Dioxide 18 mmol/L (22-30); Chloride 101 mmol/L (98-107); Glucose 158 mg/dl (70-99); HDL Cholesterol 39 mg/dl; LDL Cholesterol, Calculated 97 mg/dl; Potassium 4.9 mmol/L (3.5-5.1); Sodium 134 mmol/L (135-145); Total Cholesterol 161 mg/dl (50-199); Triglyceride 127 mg/dl (10-149); Very Low Density Lipoprotein 25 mg/dl (0-30); eGFR 35.22
[2024-10-14 05:45] LABS: Glucose - Point of Care 142 mg/dl (70-99)
[2024-10-14] MEDS: NOVOLOG FLEXPEN-LOW RESISTANCE SC (05:47)
[2024-10-14] MEDS: SYNTHROID PO (05:50)
--- NOTE | 2024-10-14 07:52 | W.PN.UPDATE ---
Update Note
Progress Note Update
As per discussion with neurology in [facility] - in case of CVA and carotid dissection medeical mgmt with antithrombotics recommended. Transfer at this time not accepted. Will attempt to reqest rransfer of the imaging to [facility]
system - in communication with radiology
--- NOTE | 2024-10-14 08:30 | PTCARENOTE ---
Rec'd care of patient at 0700. [facility] completed with previous RN. NIH-10. Patient alert. PERRLA. Following commands with limitations due to confusion. Right facial droop present. Speech difficult to understand d/t aphasia and dysarthria. Patient states
decreased sensation on RLE. NSR on tele. No edema. Palpable pulses. Lung sounds diminished throughout. Pulse ox 94% on RA. +BS. NPO pending speech eval. Incontinent of urine. Bonnie care as needed. Bed alarm on and safe environment maintained.
[2024-10-14 09:09] LABS: Glycohemoglobin (HgbA1c) 7.1 % (4.0-5.6)
--- NOTE | 2024-10-14 10:54 | PTCARENOTE ---
Speech therapist at bedside.
[2024-10-14] MEDS: VITAMIN B1 100 MG PO (11:03)
[2024-10-14] MEDS: PROTONIX 40 MG PO (11:03)
[2024-10-14] MEDS: DELTASONE 2.5 MG PO (11:03)
[2024-10-14] MEDS: ZOLOFT 75 MG PO (11:03)
[2024-10-14] MEDS: TOPROL XL 25 MG PO (11:04)
--- NOTE | 2024-10-14 11:38 | W.PN.HOSP.TC ---
Today's Communication/Plan
-
see PN
Assessment / Plan
Assessment / Plan
79yo M with PMHX of hypothyroidism, DM, HTN, HLD, GERD, BPH brought from SNF with new dysphasia and aphasia, as well as RUE weakness and R fascial droop. Had TNK in ED and admitted to ICU for the monitoring. CTA head and neck showed L carotid
dissection and as per discussion with neurosurgery and vascular SX - discussed with [facility] neurology. As per discussion - no indication for transfer as no surgical management would be indicated. Furthermore - as per [employer] discussion with
family - they were not willing to consider transfer.
A/P:
#CVA/TIA
#L carotid dissection
#R carotid stenosis
Control BP
Antiplatelets as per neurologist
MRI head
Echo cancelled by neurologist - agree
Neurochecks
LDL 97 - switch to atorvastatin
Telemetry without clinically significant arrhythmia
Follow neurology reccs for carotid stenosis and dissection mgmt
#DM type 2 with circulatory complications
Insulin SS, DM diet, Accuchecks
#Leukocytosis
#Thrombocytopenia
#Mild anemia
Chronic, recommend outpatient diesel machinist
#Dysphagia
2/2 recent CVA/TIA
ROADMASTER recommended dysphagia diet
#Hypothyroidism
check TSH cont Synthroid
#CKD stage 3b
follow Cr
#PMR on prednisone
#RA
#Iatrogenic adrenal insufficiency
#BPH
Watch for urinary retention
cont home meds
DVT ppx SCDs (recent TNK)
DNR/DNI
I have spent at least 58min reviewing chart, test results, communication with consultants and providing direct patient care
Anticipated Discharge: > 48 hours
Subjective/Interval History
-
Date of Service: October 14, 2024
Objective Data
-
Labs:
Laboratory Results
10/14/24
03:38
WBC 12.3 H
Hgb 11.7 L
Hct 34.5 L
Plt Count 490 H
PT 14.6
INR 1.10
Sodium 134 L
Potassium 4.9
Chloride 101
Carbon Dioxide 18 L
BUN 20
Creatinine 1.9 H
Glucose 158 H
Calcium 9.1
Vital Signs:
Vital Signs
Temp Pulse Resp BP Pulse Ox
98.1 F 77 20 138/61 94
10/14/24 07:38 10/14/24 11:19 10/14/24 11:19 10/14/24 11:19 10/14/24 08:00
Review of Systems
-
History Source: Patient
All other systems: Reviewed and negative
--- NOTE | 2024-10-14 11:40 | PTOTSP ---
Speech Therapy Evaluation:
Swallow:
Pt presents with clinical signs concerning for oropharyngeal dysphagia, likely acute on chronic related to hx of mild dementia, CHF, RA, SDH, CVA, and GERD, compounded by concern for acute CVA. Pt demonstrated anterior loss of liquids to the R,
prolonged mastication/bolus formation, R buccal cavity residue of hard/crunchy solids, and throat clear following consecutive sips of thin liquids via straw in 1/4 trials. Despite this, pt passed 3oz swallow screen and CXR without evidence of PNA.
Language:
At baseline, pt primarily communicates via pointing and head nod/shakes, however per family, pt is able to communicate verbally when he feels like it. During today's assessment, pt continued to communicate primarily via gestures, however was able to
produce one-word utterances that were appropriate in context when prompted. He was IND for naming objects verbally. Regarding receptive language, pt followed one-step verbal and written directions independently. He demonstrated difficulty with more
complex directions. He was 80% accurate when answering yes/no questions. Given concern for L CVA, pt would benefit from comprehensive language evaluation to differentiate new deficits from baseline function.
Recommend:
1. Initiate IDDSI Level 6 (soft and bite sized solids) and thin liquids
2. Medication as best tolerated
3. Close supervision to enforce aspiration/reflux precautions including: upright 90 degrees, small bites/sips, slow rate, alternate solids/liquids, check for pocketing on R, remain upright for at least 30 minutes following meal
4. REHAB DEPARTMENT MANAGER to follow to monitor tolerance of current diet, determine need for further diet modifications, assess ability to advance diet, determine if pt would benefit from instrumental assessment, and to further evaluate pt's speech/language.
--- NOTE | 2024-10-14 12:18 | PTCARENOTE ---
No major changes in assessment. Patient drowsy. Per daughters, at baseline patient stays up at night and sleeps during the day. Alert and oriented only to self. Communicating in mainly yes/no and occasional short sentences. Dysarthria absent.
PERRLA. MAEx4. Right facial droop unchanged. NSR on tele. VSS. Lung sounds shallow/diminished throughout on RA. Cleared for diet by ROLL CLEANER. Lunch ordered. Bed alarm on and functioning. Safe environment maintained.
--- NOTE | 2024-10-14 12:39 | CM ---
Addendum entered by Juana Mcintosh 10/14/24 12:57:
[facility] at [facility] # [phone] notified; will review clinicals and let us know if patient can return when medically stable
Faxed clinicals to #[phone]
Original Note:
Initial assessment completed with patient's daughters at the bedside
Pharmacy verified: [facility], [address] [facility]
Patient resides @ [facility] for the past 6-7 years; prior to admission, daughters reported he needed assistance w/ ADLs; he is incontinent; he was able to feed self; read; was pushing a wheelchair to assist with ambulation
Plan: return to [facility] when stable for discharge
[2024-10-14 12:40] LABS: Glucose - Point of Care 157 mg/dl (70-99)
[2024-10-14] MEDS: NOVOLOG FLEXPEN-LOW RESISTANCE 1 UNITS SC (12:43)
--- NOTE | 2024-10-14 14:15 | W.PN.INTV ---
Today's Communication / Plan
Recommendations
-Await MRI
-If patient gets transferred out of ICU, rn hospital service will sign off.
Assessment
-
Assessment: 79-year-old male non-smoker with a past medical history of dementia, CVA, GERD, constipation, history of SDH s/p ghanshyam hole, polymyalgia rheumatica, history of RA, JUAN JOSE, CKD, hypothyroidism, history of alcohol abuse, CAD, history of SAH,
BPH, DM type II, and history of ruptured diverticulitis with colectomy/colostomy who presents with altered mental status. Patient has a ride from [facility] via EMS. Patient became aphasic during the day mixing up his words and had a
suspected right facial droop. Stroke alert called at 2:33 PM on 10/13/2024. He was reportedly last seen normal at 1 PM on 10/13/2024. He was saying things like 'I want to go to fire' and 'I want to sit on the tire.' In the ER, BP was 148/62, pulse
rate 90, respiratory rate 22 and saturating 98%. Initial labs showed WBC 13.9, Hb 12.1, platelet count 543, INR 0.98, creatinine 2, serum bicarbonate level 18, glucose 175, and troponin negative at <0.012. CT head showed no acute intracranial
abnormality, and CTA head/neck showed a left ICA dissection beginning at the mid cervical portion of the left ICA at the cervical to level and extending contiguously through the distal petrous portion of the left ICA. Also 70% stenosis of the right
ICA. Of note he was here in the ER on 10/11/2024 after he fell and hit the back of his head - CT head at that time showed no acute intracranial abnormality, and CT C-spine showed no acute fracture or dislocation. In the ER he was given 500 cc bolus
of NS 0.9%. Neurology consulted and he was considered a TNK candidate, and TNK was administered at 15:11 on 10/13/2024. Patient admitted to the ICU and rn hospital services consulted for additional management/recommendations.
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
hypogonadism, BPH, DM type II, rotator cuff tear s/p arthroscopy, history of TBI, depression, adrenal insufficiency, diverticulosis, JUAN JOSE, RA, CKD, neuropathy, hypothyroidism, secondary hyperparathyroidism, CAD, osteopenia, history of alcohol abuse,
seizures, history of SAH, history of stroke, history of MRSA, dementia
Last 24 hrs:
Patient received TNK 10/13/2024
-Fluid balance, not charted
-Vitals 109 x 47, pulse of 69, respiratory rate 24, saturating 94%. Afebrile
Hemoglobin stable at 11.7, hematocrit 34.5. WBC count at 12.3 and platelet count of 490 K
INR 1.1
Sodium 134, potassium of 4.9, creatinine stable at around 1.9
Chest x-ray unremarkable.
#1. Expressive aphasia with concern for CVA. S/p TNK on 10/13
-Await MRI
-Continue neurochecks
-Await neurology recommendations regarding antiplatelet/anticoagulant treatment
-Reported h/o multiple falls, also prior h/o SDH requiring ghanshyam hole in 2011
-PT/OT/ST
#2. Left ICA dissection.
-Continue conservative management, blood pressure control
-Discussed with patient's family at bedside, current CODE STATUS DNR/DNI and family does not want to move patient to another facility, hold off on transferring
-Await further neurology recommendations regarding antiplatelet/anticoagulants.
#3. History of polymyalgia rheumatica on chronic prednisone therapy.
-Continue home dose prednisone.
-Low threshold to give stress dose steroids in the event of any hemodynamically instability
#4. CKD stage III. Stable. monitor labs
Code status: DNR/DNI. Discussed with daughters at bedside
Critical care statement: A total of 32 minutes of critical care time was provided for this patient today. This includes management of unstable vital signs, evaluation of the patient at bedside, reviewing the patient's pertinent medical records
including radiographs, microbiology, laboratory evaluations, and discussion with primary team, consultants, pharmacy, nutrition, physical therapy, case management, charge nurse, critical care nursing, and respiratory therapy.
Data:
CTA head/neck with/without contrast 10/13/2024:
There is left ICA dissection, beginning in the mid cervical portion of the left ICA at the C2 level, and extending contiguously through the distal petrous portion of the left ICA. There does not appear to be involvement of the cavernous portion of
the left ICA. There is contrast opacification of the true and false lumen of the dissection.
Calcific atherosclerotic disease involving the right carotid bulb and proximal right ICA with measured diameter reduction of 70%, which is likely hemodynamically significant.
On the left, measured diameter reduction of 36%, unlikely to be hemodynamically significant.
Anterior cerebral and middle cerebral arteries appear within normal limits.
Vertebral and basilar arteries appear within normal limits with no evidence for high-grade narrowing or dissection. Posterior cerebral arteries appear normal.
Subjective Dataa
Subjective Data
Date of Service:
Date of Service: October 14, 2024
Subjective:
Patient comfortably sitting in bed in no acute distress.
Review of Systems
General: Other (Unable to obtain a full review of system due to underlying dementia)
Objective Data
Data Reviewed
Vital Signs / I&O / Oxygen:
Vital Signs
Temp Pulse Resp BP Pulse Ox
98.4 F 69 24 109/47 94
10/14/24 11:30 10/14/24 14:00 10/14/24 14:00 10/14/24 14:00 10/14/24 08:00
SaO2 94
Physical Exam
General: Comfortable
HEENT: Normocephalic
Cardiovascular: S1-S2
Respiratory: Clear and Non-Labored Respirations
GI: Soft and Non Distended
Neurology: Awake and Oriented (Patient is not oriented)
Skin: Warm
Labs/Micro/Reports
Lab Data
10/14/24 03:38
10/14/24 03:38
Laboratory Results
10/13/24 10/14/24
15:00 03:38
PT 13.3 14.6
INR 0.98 1.10
APTT 28.1
[2024-10-14 15:11] LABS: TSH 0.87 uIU/ml (0.47-4.68)
[2024-10-14] MEDS: LR 1000 IV (15:45)
--- NOTE | 2024-10-14 16:04 | PTCARENOTE ---
Patient's blood pressure trending down. SBP <100. Audio Experience Expert notified. LR bolus ordered and administered. Systems reviewed. No major changes. Drowsy. Right facial droop. Aphasic. MAEx4. NSR on tele. Incontinent of stool and urine. CHG bath
provided.
--- NOTE | 2024-10-14 16:43 | W.PN.NEURO.1 ---
Today's Communication / Plan
-
No indication for echocardiogram at this time as the patient is not a candidate for therapies as suggested in the therapeutic trials
Would check MRI of brain if possible, no indication for the patient undergo the study with contrast at this time
Goal of normoglycemia
Goal of normotension
Rehabilitation evaluations
Would initiate aspirin 81 mg daily following MRI of brain imaging if there is no evidence of hemorrhagic conversion or changes
Provide thiamine
Consider lowering the patient's usual prednisone which is most likely being utilized for the patient's prior history of rheumatic arthritis
Neuro Assessment/Plan
Assessment
Patient with chronic history of underlying significant dementia and recurrent head injuries including subdural hematoma and evacuation presented with aphasia.
Patient was given tenecteplase as remediation therapy.
Plan
No indication for echocardiogram at this time as the patient is not a candidate for therapies as suggested in the therapeutic trials
Would check MRI of brain if possible, no indication for the patient undergo the study with contrast at this time
Goal of normoglycemia
Goal of normotension
Rehabilitation evaluations
Would initiate aspirin 81 mg daily following MRI of brain imaging if there is no evidence of hemorrhagic conversion or changes
Provide thiamine
Consider lowering the patient's usual prednisone which is most likely being utilized for the patient's prior history of rheumatic arthritis
Will follow pending results
Subjective/Objective
Subjective Data
Date of Service: October 14, 2024
Patient unable to provide his own medical history
Objective Data
Vital Signs
Temp Pulse Resp BP Pulse Ox
36.8 C 74 20 100/68 97
10/14/24 15:30 10/14/24 16:00 10/14/24 16:00 10/14/24 16:00 10/14/24 15:01
Lab Results
10/14/24 03:38
10/14/24 03:38
PT 14.6 Sec (11.4-14.6) 10/14/24 03:38
INR 1.10 10/14/24 03:38
APTT 28.1 Sec (23.4-35.0) 10/13/24 15:00
Sodium 134 mmol/L (135-145) L 10/14/24 03:38
Potassium 4.9 mmol/L (3.5-5.1) 10/14/24 03:38
BUN 20 mg/dl (9-20) 10/14/24 03:38
Glucose 158 mg/dl (70-99) H 10/14/24 03:38
Calcium 9.1 mg/dl (8.4-10.2) 10/14/24 03:38
LDL Cholesterol, Calc 97 mg/dl 10/14/24 03:38
Patient Allergies
diflunisal Allergy (Verified 06/19/22 12:39)
WIGGISN JOHNSONS SYNDROME
penicillin V Allergy (Verified 06/19/22 12:39)
Anaphylaxis
pentazocine Allergy (Verified 06/19/22 12:39)
DIFFICULTY BREATHING, HALLUCINATIONS
tramadol HCl [From Ultram] Allergy (Verified 06/19/22 12:39)
HALLUCINATIONS
Review of Systems
-
Unable to obtain full review of systems at this time due to: Aphasia
History Source: Patient
All other systems: Reviewed and negative
Physical Exam
-
General: No Apparent Distress and Appears Stated Age
Eyes: Round OU, [place] Conjunctivae and No Ptosis
HEENT: Anicteric and Moist Mucous Membranes
Neck: Full Range of Motion
Respiratory: No Dyspnea
Cardiac: No JVD
GI: Non-distended
Skin: Unremarkable
Extremities: No Clubbing, No Cyanosis and No Edema
Psych: Negative Intact Judgement/Insight
Extended Neurological Exam
Mood & Affect: Affect Unremarkable
Attention Span & Concentration: Awake, Alert, Interactive (Intermittently interactive and at times refusing examiners requests), Unable to Perform 2 Step Request and Other (Severe difficulty with single step requests)
Memory: Unable to Recall Personal History and Unable to Assess
Tremor: Hand Tremor Absent and Head Tremor Absent
Involuntary Movement: None
Speech: Mute
Cranial Nerve II: Left Eye: Pupillary Size Unremarkable and Visual Gupta Grossly Intact
Cranial Nerve II: Right Eye: Pupillary Size Unremarkable and Visual Gupta Grossly Intact
Cranial Nerves III, IV, : Extraocular Movement: Grossly Intact
Cranial Nerve V: Facial Sensation: Unable to Assess
Cranial Nerve VII: Facial Symmetry: Normal Facial Symmetry
Cranial Nerve VIII: Hearing: Unremarkable Hearing to Normal Conversational Volume
Cranial Nerve XI: Shoulder Shrug: Unremarkable
Cranial Nerve XII: Tongue Protusion: Midline
Muscle Strength, Overall: Spontaneously Moves (All extremities)
Muscle Bulk & Tone: Bulk Unremarkable and Tone Unremarkable
Pronator Drift: Unable to Assess
Cold Sensation: Unable to Assess
Touch Sensation: Unremarkable
Coordination: Reaches for Objects without Difficulty
Gait & Station: Unable to Assess
Data Reviewed
-
CT-A: Report Reviewed
CT Head: Report Reviewed
Labs: Report Reviewed
Reviewed with: Physician, Nurse, Nurse Practioner, Patient and Family
Old Records: Summarized
Past History
Past History
ED Past Medical History: CAD, CHF, HTN, Hypercholesterolemia, Hypothyroidism and Other (Diverticulitis with perforation 2008, sepsis syndrome after colon reversal 22 complications. Polymyalgia rheumatica, adrenal insufficiency, osteopenia,
Rheumatoid arthritis, SDH, dementia)
ED Past Surgical History: Appendectomy, Bowel resection, Brain (Subdural hematoma evacuation) and Orthopedic (Right femur mello, right foot surgery)
Social History
Tobacco: Non-smoker
Alcohol: Former
Drug: None
Personal:
Living: jail ([facility])
Employment: Retired
Family History
Family History: Hypertension
Medications
-
Medications:
Generic Name Dose Route Start Last Admin
Trade Name Freq PRN Reason Stop Dose Admin
Atorvastatin Calcium 40 mg 10/14/24 22:00
Atorvastatin (Lipitor) 40 Mg Tablet PO 11/11/24 21:59
HS JOSE
Dextrose 12.5 grams 10/13/24 16:16
Dextrose 50% (0.5 Grams/Ml) 50 Ml Syringe IV 11/10/24 16:15
[id number] PRN
hypoglycemia
Protocol
Glucagon 1 mg 10/13/24 16:16
Glucagon 1 Mg Vial IM 11/10/24 16:15
PRN PRN
hypoglycemia
Protocol
Insulin Aspart 0 units 10/14/24 16:30
Insulin Aspart Low Resistance 300 Units/3 Ml Pen.Injctr SC 11/11/24 16:29
AC JOSE
Protocol
Labetalol HCl 5 mg 10/13/24 16:16
Labetalol Hcl 5 Mg/1 Ml (20 Mg/4 Ml) Injection IV 11/10/24 16:15
Q6HPRN PRN
SBP>180 or DBP>105 mmHg
Levothyroxine Sodium 88 mcg 10/14/24 06:00 10/14/24 05:50
Levothyroxine 88 Mcg Tablet PO 11/11/24 05:59 Not Given
DAILY@0600 JOSE
Metoprolol Succinate 25 mg 10/14/24 08:00 10/14/24 11:04
Metoprolol 25 Mg Extended Release Tablet PO 11/11/24 07:59 25 mg
DAILY JOSE Administration
Pantoprazole Sodium 40 mg 10/14/24 08:00 10/14/24 11:03
Pantoprazole 40 Mg Delayed Release Tablet PO 11/11/24 07:59 40 mg
DAILY JOSE Administration
Prednisone 2.5 mg 10/14/24 08:00 10/14/24 11:03
Prednisone 2.5 Mg Tablet PO 11/11/24 07:59 2.5 mg
DAILY JOSE Administration
Sertraline HCl 75 mg 10/14/24 08:00 10/14/24 11:03
Sertraline 50 Mg Tablet PO 11/11/24 07:59 75 mg
DAILY JOSE Administration
Sodium Chloride 0 flush 10/13/24 17:00
Sodium Chloride 0.9% (Flush) Syringe IV 11/10/24 16:59
PER PROTOCOL JOSE
Tamsulosin HCl 0.4 mg 10/13/24 22:00 10/13/24 21:32
Tamsulosin 0.4 Mg Capsule PO 11/10/24 21:59 Not Given
HS JOSE
Thiamine HCl 100 mg 10/14/24 10:00 10/14/24 11:03
Thiamine 100 Mg Tablet PO 11/11/24 09:59 100 mg
DAILY JOSE Administration
[2024-10-14 17:35] LABS: Glucose - Point of Care 147 mg/dl (70-99)
--- NOTE | 2024-10-14 19:00 | PTCARENOTE ---
NIHSS 10. Neuro assessment unchanged from previous shift.
--- NOTE | 2024-10-14 21:00 | SUR.OPER ---
Unable to scan pt at MRI. Pt was uncooperative throughout scanning process and would not stop moving during procedure.
[2024-10-14 21:29] LABS: Glucose - Point of Care 190 mg/dl (70-99)
[2024-10-14] MEDS: LIPITOR 40 MG PO (22:39)
[2024-10-14] MEDS: FLOMAX 0.4 MG PO (22:39)
[2024-10-14] MEDS: NOVOLOG FLEXPEN 1 UNITS SC (23:25)
[2024-10-14 23:32] LABS: Glucose - Point of Care 162 mg/dl (70-99)
[2024-10-15] VITALS (21 sets, daily range): BP systolic 117–151; BP diastolic 54–81; PULSE 63
--- NOTE | 2024-10-15 04:00 | PTCARENOTE ---
Upon reassessment pt is resting comfortably.
[2024-10-15 04:49] LABS: % Basophils 0.7 % (0-2); % Eosinophils 2.6 % (0-6); % Immature Granulocytes 0.2 % (0-0.5); % Lymphocytes 28.9 % (20.5-51.1); % Monocytes 14.1 % (1.7-9.3); % Neutrophils 53.5 % (42.2-75.2); Absolute Basophils 0.1 10^3/uL (0-0.2); Absolute Eosinophils 0.2 10^3/uL (0-0.7); Absolute Lymphocytes 2.5 10^3/uL (1.2-3.4); Absolute Monocytes 1.2 10^3/uL (0.1-0.6); Absolute Neutrophils 4.6 10^3/uL (1.4-6.5); Hematocrit 37.6 % (39.0-52.0); Hemoglobin 12.1 g/dL (13.0-18.0); Mean Corp Hgb Conc. 32.2 g/dL (33.0-37.0); Mean Corpuscular Hgb 28.3 pg (27.0-31.0); Mean Corpuscular Volume 88.1 fL (80.0-94.0); Nucleated Red Blood Cells % 0 % (-); Platelet Count 420 10^3/uL (130-400); Red Blood Cell Count 4.27 10^6/uL (4.70-6.10); Red Cell Dist. Width 15.1 % (11.5-14.5); White Blood Cell Count 8.6 10^3/uL (4.8-10.8)
[2024-10-15 05:22] LABS: Blood Urea Nitrogen 24 mg/dl (9-20); Calcium 9.2 mg/dl (8.4-10.2); Carbon Dioxide 22 mmol/L (22-30); Chloride 101 mmol/L (98-107); Glucose 124 mg/dl (70-99); Potassium 4.7 mmol/L (3.5-5.1); Sodium 136 mmol/L (135-145); eGFR 31.23
[2024-10-15 07:59] LABS: Glucose - Point of Care 115 mg/dl (70-99)
[2024-10-15] MEDS: NOVOLOG FLEXPEN-MODERATE RESISTANCE SC (08:52)
[2024-10-15] MEDS: SYNTHROID 88 MCG PO (08:52)
[2024-10-15] MEDS: VITAMIN B1 100 MG PO (08:53)
[2024-10-15] MEDS: DELTASONE 2.5 MG PO (08:53)
[2024-10-15] MEDS: PROTONIX 40 MG PO (08:53)
[2024-10-15] MEDS: ZOLOFT 75 MG PO (08:53)
[2024-10-15] MEDS: TOPROL XL 25 MG PO (08:53)
--- NOTE | 2024-10-15 11:25 | PTOTSP ---
Speech Language Pathology
Pt seen for therapeutic reassessment of speech/language abilities via the Quick Aphasia Battery (QAB), form 1. Pt with an overall score of 8.14, indicative of mild deficits overall. Pt with the following scores (severities) on the following
subtests: word comprehension= 10.00 (WNL); sentence comprehension= 5.42 (mod); word finding= 7.00 (mod); grammatical construction= 9.00 (WNL); speech motor programming= 10.00 (WNL); repetition= 8.33 (mild); reading= 9.58 (WNL).
Pt also seen for dysphagia tx. Breakfast tray of IDDSI Level 6 solids and thin liquids at bedside. In addition to these items, trialed regular solids. Improvement in swallow function noted this date. Adequate mastication, bolus formation, and
A-P transit noted with no oral residue. No anterior leakage. No overt signs of aspiration.
Recommend:
(1) Upgrade to regular solids/thin liquids
(2) Aspiration precautions: partial supervision with set-up assist, slow rate, check for pocketing
(3) Meds as tolerated
(4) GRINDER HAND to continue to follow to ensure diet tolerance/need for compensations and aphasia tx
[2024-10-15 11:48] LABS: Glucose - Point of Care 169 mg/dl (70-99)
--- NOTE | 2024-10-15 11:54 | W.PN.HOSP.TC ---
Today's Communication/Plan
-
repeat Head CT to follow new hemorrhage
Upgraded to regular diet as per JACK PRIZER
Assessment / Plan
Assessment / Plan
79yo M with PMHX of hypothyroidism, DM, HTN, HLD, GERD, BPH brought from SNF with new dysphasia and aphasia, as well as RUE weakness and R fascial droop. Had TNK in ED and admitted to ICU for the monitoring. CTA head and neck showed L carotid
dissection and as per discussion with neurosurgery and vascular SX - discussed with [facility] neurology. As per discussion - no indication for transfer as no surgical management would be indicated. Furthermore - as per Usability Specialist discussion with
family - they were not willing to consider transfer.
Patient eventually improved, but repeated CT showed Trace intraventricular hemorrhage within the occipital horns bilaterally, No midline shift or herniation.
A/P:
#CVA/TIA
#L carotid dissection
#R carotid stenosis
#Trace intraventricular hemorrhage within the occipital horns bilaterally
Reviewed CT findings with neurologist. ASA to hold, since patient improving - follow up with repeated CT head as hemorrhage is minimal
Control BP
Antiplatelets as per neurologist
MRI head
Echo cancelled by neurologist - agree
Neurochecks
LDL 97 - switch to atorvastatin
Telemetry without clinically significant arrhythmia
Follow neurology reccs for carotid stenosis and dissection mgmt
#DM type 2 with circulatory complications
Insulin SS, DM diet, Accuchecks
#Leukocytosis - resolved off Abx
#Thrombocytosis - improving
#Mild anemia
Chronic, recommend outpatient stone splitter
#Dysphagia
2/2 recent CVA/TIA
JACK PRIZER recommended dysphagia diet
#Hypothyroidism
TSH WNL
cont Synthroid
#CKD stage 3b
follow Cr, baseline 1.9-2.1
#PMR on prednisone
#RA
#Iatrogenic adrenal insufficiency
#BPH
Watch for urinary retention
cont home meds
DVT ppx SCDs (recent TNK)
DNR/DNI
I have spent at least 58min reviewing chart, test results, communication with consultants and providing direct patient care
Anticipated Discharge: > 48 hours
Subjective/Interval History
-
Date of Service: October 15, 2024
Objective Data
-
Labs:
Laboratory Results
10/15/24 10/15/24
04:10 10:06
WBC 8.6
Hgb 12.1 L
Hct 37.6 L
Plt Count 420 H
PT Cancelled
INR Cancelled
APTT Cancelled
Sodium 136
Potassium 4.7
Chloride 101
Carbon Dioxide 22
BUN 24 H
Creatinine 2.1 H
Glucose 124 H
Calcium 9.2
Vital Signs:
Vital Signs
Temp Pulse Resp BP Pulse Ox
98.6 F 67 20 132/67 97
10/15/24 11:14 10/15/24 09:42 10/15/24 09:42 10/15/24 09:42 10/15/24 09:38
I&O
10/14/24 10/15/24 10/16/24
06:59 06:59 06:59
Intake Total 1000 / 1000 200 / 200
Balance 1000 / 1000 200 / 200
Review of Systems
-
History Source: Patient
All other systems: Reviewed and negative
Physical Exam
-
General: No Apparent Distress
HEENT: Normocephalic
Respiratory: Clear to Auscultation
Cardiac: Regular Rhythm
GI: Soft, Nontender and Nondistended
Neuro: Awake, Alert and Other (able to conduct simple conversation)
Psych: Apparent Dementia
--- NOTE | 2024-10-15 12:00 | W.PN.NEURO.1 ---
Today's Communication / Plan
-
Would recheck patient's CT of the head approximately 6 hours from prior testing to determine if interventricular blood is increased
Initially considering lumbar puncture for this patient and now based on the patient's improved examination today compared with 1 day ago, would not pursue same
Neuro Assessment/Plan
Assessment
Patient with chronic history of underlying significant dementia and recurrent head injuries including subdural hematoma and evacuation presented with aphasia.
Patient was given tenecteplase as remediation therapy.
Patient's CT of the head demonstrates small amounts of intraventricular blood on September 17, 2024
Plan
Would recheck patient's CT of the head approximately 6 hours from prior testing to determine if interventricular blood is increased
Initially considering lumbar puncture for this patient and now based on the patient's improved examination today compared with 1 day ago, would not pursue same
Consider initiation of aspirin
Goal of normoglycemia
Goal of normotension
Rehabilitation evaluations
Provide thiamine
Consider lowering the patient's usual prednisone which is most likely being utilized for the patient's prior history of rheumatic arthritis
Will follow pending results
Subjective/Objective
Subjective Data
Date of Service: October 15, 2024
Patient reports that he feels improved compared with 1 day ago
Objective Data
Vital Signs
Temp Pulse Resp BP Pulse Ox
37.0 C 67 20 132/67 97
10/15/24 11:14 10/15/24 09:42 10/15/24 09:42 10/15/24 09:42 10/15/24 09:38
Lab Results
10/15/24 04:10
10/15/24 04:10
PT Cancelled 10/15/24 10:06
INR Cancelled 10/15/24 10:06
APTT Cancelled 10/15/24 10:06
Sodium 136 mmol/L (135-145) 10/15/24 04:10
Potassium 4.7 mmol/L (3.5-5.1) 10/15/24 04:10
BUN 24 mg/dl (9-20) H 10/15/24 04:10
Glucose 124 mg/dl (70-99) H 10/15/24 04:10
Calcium 9.2 mg/dl (8.4-10.2) 10/15/24 04:10
LDL Cholesterol, Calc 97 mg/dl 10/14/24 03:38
Patient Allergies
diflunisal Allergy (Verified 06/19/22 12:39)
WIGGINS JOHNSONS SYNDROME
penicillin V Allergy (Verified 06/19/22 12:39)
Anaphylaxis
pentazocine Allergy (Verified 06/19/22 12:39)
DIFFICULTY BREATHING, HALLUCINATIONS
tramadol HCl [From Ultram] Allergy (Verified 06/19/22 12:39)
HALLUCINATIONS
Review of Systems
-
Unable to obtain full review of systems at this time due to: Dementia
History Source: Patient
All other systems: Reviewed and negative
Physical Exam
-
General: No Apparent Distress and Appears Stated Age
Eyes: Round OU, Silver Plume Conjunctivae and No Ptosis
HEENT: Anicteric and Moist Mucous Membranes
Neck: Full Range of Motion
Respiratory: No Dyspnea
Cardiac: No JVD
GI: Non-distended
Skin: Unremarkable
Extremities: No Clubbing, No Cyanosis and No Edema
Psych: Negative Intact Judgement/Insight
Extended Neurological Exam
Mood & Affect: Affect Unremarkable
Attention Span & Concentration: Awake, Alert and Interactive
Memory: Able to Recall (Month, with the year indicated to be at least 100 years ago) and Unable to Recall Personal History
Tremor: Hand Tremor Absent and Head Tremor Absent
Involuntary Movement: None
Speech: Quality Unremarkable and Moderately Reduced Output
Cranial Nerve II: Left Eye: Pupillary Size Unremarkable and Visual Gupta Grossly Intact
Cranial Nerve II: Right Eye: Pupillary Size Unremarkable and Visual Gupta Grossly Intact
Cranial Nerves III, IV, : Extraocular Movement: Grossly Intact
Cranial Nerve V: Facial Sensation: Unable to Assess
Cranial Nerve VII: Facial Symmetry: Normal Facial Symmetry
Cranial Nerve VIII: Hearing: Unremarkable Hearing to Normal Conversational Volume
Cranial Nerve XI: Shoulder Shrug: Unremarkable
Cranial Nerve XII: Tongue Protusion: Midline
Muscle Strength, Overall: Spontaneously Moves (All extremities)
Muscle Bulk & Tone: Bulk Unremarkable and Tone Unremarkable
Touch Sensation: Unremarkable
Gait & Station: Unable to Assess
Data Reviewed
-
CT Head: Report Reviewed and Image Reviewed
Labs: Report Reviewed
Reviewed with: Physician and Patient
Old Records: Summarized
Past History
Past History
ED Past Medical History: CAD, CHF, HTN, Hypercholesterolemia, Hypothyroidism and Other (Diverticulitis with perforation 2008, sepsis syndrome after colon reversal 22 complications. Polymyalgia rheumatica, adrenal insufficiency, osteopenia,
Rheumatoid arthritis, SDH, dementia)
ED Past Surgical History: Appendectomy, Bowel resection, Brain (Subdural hematoma evacuation) and Orthopedic (Right femur mello, right foot surgery)
Social History
Tobacco: Non-smoker
Alcohol: Former
Drug: None
Personal:
Living: [facility] ([facility])
Employment: Retired
Family History
Family History: Hypertension
Medications
-
Medications:
Generic Name Dose Route Start Last Admin
Trade Name Freq PRN Reason Stop Dose Admin
Atorvastatin Calcium 40 mg 10/14/24 22:00 10/14/24 22:39
Atorvastatin (Lipitor) 40 Mg Tablet PO 11/11/24 21:59 40 mg
HS JOSE Administration
Dextrose 12.5 grams 10/13/24 16:16
Dextrose 50% (0.5 Grams/Ml) 50 Ml Syringe IV 11/10/24 16:15
[id number] PRN
hypoglycemia
Protocol
Glucagon 1 mg 10/13/24 16:16
Glucagon 1 Mg Vial IM 11/10/24 16:15
PRN PRN
hypoglycemia
Protocol
Insulin Aspart 0 units 10/15/24 07:30 10/15/24 08:52
Insulin Aspart Moderate Resistance 300 Units/3 Ml Pen.Injctr SC 11/12/24 07:29 Not Given
AC JOSE
Protocol
Labetalol HCl 5 mg 10/13/24 16:16
Labetalol Hcl 5 Mg/1 Ml (20 Mg/4 Ml) Injection IV 11/10/24 16:15
Q6HPRN PRN
SBP>180 or DBP>105 mmHg
Levothyroxine Sodium 88 mcg 10/14/24 06:00 10/15/24 08:52
Levothyroxine 88 Mcg Tablet PO 11/11/24 05:59 88 mcg
DAILY@0600 JOSE Administration
Lorazepam 0.5 mg 10/15/24 08:58
Lorazepam 2 Mg/Ml Vial IV
Q4HPRN PRN
correspondence specialist to MRI
Metoprolol Succinate 25 mg 10/14/24 08:00 10/15/24 08:53
Metoprolol 25 Mg Extended Release Tablet PO 11/11/24 07:59 25 mg
DAILY JOSE Administration
Pantoprazole Sodium 40 mg 10/14/24 08:00 10/15/24 08:53
Pantoprazole 40 Mg Delayed Release Tablet PO 11/11/24 07:59 40 mg
DAILY JOSE Administration
Prednisone 2.5 mg 10/14/24 08:00 10/15/24 08:53
Prednisone 2.5 Mg Tablet PO 11/11/24 07:59 2.5 mg
DAILY JOSE Administration
Sertraline HCl 75 mg 10/14/24 08:00 10/15/24 08:53
Sertraline 50 Mg Tablet PO 11/11/24 07:59 75 mg
DAILY JOSE Administration
Sodium Chloride 0 flush 10/13/24 17:00
Sodium Chloride 0.9% (Flush) Syringe IV 11/10/24 16:59
PER PROTOCOL JOSE
Tamsulosin HCl 0.4 mg 10/13/24 22:00 10/14/24 22:39
Tamsulosin 0.4 Mg Capsule PO 11/10/24 21:59 0.4 mg
HS JOSE Administration
Thiamine HCl 100 mg 10/14/24 10:00 10/15/24 08:53
Thiamine 100 Mg Tablet PO 11/11/24 09:59 100 mg
DAILY JOSE Administration
[2024-10-15] MEDS: NOVOLOG FLEXPEN-MODERATE RESISTANCE 1 UNITS SC ×2 (12:19→17:58)
--- NOTE | 2024-10-15 12:33 | PTCARENOTE ---
Updated assessment ongoing and as documented. Follow up with dispatcher automobile rental, hospitalist and neurology thru morning rounds. CT scan completed, repeat scans as ordered. PT/OT working with patient at this assessment. Speech updated and working with
patient follow up diet changes as ordered. Continue with ongoing assessment updates. Update daughter via phone. Continue follow up teaching and assessment trends. Hourly rounds, frequent patient safety checks and ongoing call ling demo/instruction.
--- NOTE | 2024-10-15 14:58 | W.PN.INTV ---
Today's Communication / Plan
Recommendations
- Hold antiplatelets/anticoagulants
-Follow-up CT head in 6 hours
-Patient hemodynamically stable, saturating well on room air, stable for transfer from ICU
-Networking Technician service will sign off, please call if needed
Assessment
-
Assessment: 79-year-old male non-smoker with a past medical history of dementia, CVA, GERD, constipation, history of SDH s/p ghanshyam hole, polymyalgia rheumatica, history of RA, JUAN JOSE, CKD, hypothyroidism, history of alcohol abuse, CAD, history of SAH,
BPH, DM type II, and history of ruptured diverticulitis with colectomy/colostomy who presents with altered mental status. Patient has a ride from [facility] via EMS. Patient became aphasic during the day mixing up his words and had a
suspected right facial droop. Stroke alert called at 2:33 PM on 10/13/2024. He was reportedly last seen normal at 1 PM on 10/13/2024. He was saying things like 'I want to go to fire' and 'I want to sit on the tire.' In the ER, BP was 148/62, pulse
rate 90, respiratory rate 22 and saturating 98%. Initial labs showed WBC 13.9, Hb 12.1, platelet count 543, INR 0.98, creatinine 2, serum bicarbonate level 18, glucose 175, and troponin negative at <0.012. CT head showed no acute intracranial
abnormality, and CTA head/neck showed a left ICA dissection beginning at the mid cervical portion of the left ICA at the cervical to level and extending contiguously through the distal petrous portion of the left ICA. Also 70% stenosis of the right
ICA. Of note he was here in the ER on 10/11/2024 after he fell and hit the back of his head - CT head at that time showed no acute intracranial abnormality, and CT C-spine showed no acute fracture or dislocation. In the ER he was given 500 cc bolus
of NS 0.9%. Neurology consulted and he was considered a TNK candidate, and TNK was administered at 15:11 on 10/13/2024. Patient admitted to the ICU and soil conservation teacher services consulted for additional management/recommendations.
Chronic conditions [employer]: Chronic constipation, chronic pain syndrome, GERD, history of ruptured diverticulitis with colectomy/colostomy, ED, history of subdural hematoma s/p ghanshyam hole evacuation, osteoarthritis, PMR, hyperlipidemia, hypertension,
hypogonadism, BPH, DM type II, rotator cuff tear s/p arthroscopy, history of TBI, depression, adrenal insufficiency, diverticulosis, JUAN JOSE, RA, CKD, neuropathy, hypothyroidism, secondary hyperparathyroidism, CAD, osteopenia, history of alcohol abuse,
seizures, history of SAH, history of stroke, history of MRSA, dementia
Last 24 hrs:
Patient received TNK 10/13/2024
-Fluid balance, not charted
-Vitals 109 x 47, pulse of 69, respiratory rate 24, saturating 94%. Afebrile
Hemoglobin stable at 11.7, hematocrit 34.5. WBC count at 12.3 and platelet count of 490 K
INR 1.1
Sodium 134, potassium of 4.9, creatinine stable at around 1.9
Chest x-ray unremarkable.
#1. Expressive aphasia with concern for CVA. S/p TNK on 10/13 with small ICH
-Patient could not complete MRI, follow-up CT showed small intraventricular bleed, managed conservatively with a follow-up 6-hour CT head
-Continue neurochecks
-Hold off antiplatelets, anticoagulants
-Reported h/o multiple falls, also prior h/o SDH requiring ghanshyam hole in 2011
-PT/OT/ST
#2. Left ICA dissection.
-Continue conservative management, blood pressure control
-10/15, Discussed with patient's family at bedside, current CODE STATUS DNR/DNI and family does not want to move patient to another facility, hold off on transferring
#3. History of polymyalgia rheumatica on chronic prednisone therapy.
-Continue home dose prednisone.
-Low threshold to give stress dose steroids in the event of any hemodynamically instability
#4. CKD stage III. Stable. monitor labs
Code status: DNR/DNI. Discussed with daughters at bedside
Critical care statement: A total of 30 minutes of critical care time was provided for this patient today. This includes management of unstable vital signs, evaluation of the patient at bedside, reviewing the patient's pertinent medical records
including radiographs, microbiology, laboratory evaluations, and discussion with primary team, consultants, pharmacy, nutrition, physical therapy, case management, charge nurse, critical care nursing, and respiratory therapy.
Data:
CTA head/neck with/without contrast 10/13/2024:
There is left ICA dissection, beginning in the mid cervical portion of the left ICA at the C2 level, and extending contiguously through the distal petrous portion of the left ICA. There does not appear to be involvement of the cavernous portion of
the left ICA. There is contrast opacification of the true and false lumen of the dissection.
Calcific atherosclerotic disease involving the right carotid bulb and proximal right ICA with measured diameter reduction of 70%, which is likely hemodynamically significant.
On the left, measured diameter reduction of 36%, unlikely to be hemodynamically significant.
Anterior cerebral and middle cerebral arteries appear within normal limits.
Vertebral and basilar arteries appear within normal limits with no evidence for high-grade narrowing or dissection. Posterior cerebral arteries appear normal.
Subjective Dataa
Subjective Data
Date of Service:
Date of Service: October 15, 2024
Subjective:
Patient awake, alert, comfortably sitting on room air with good saturations and hemodynamically stable.
Review of Systems
Genitourinary: Other (All 14 systems reviewed and negative except as stated above in the history of present illness.)
Objective Data
Data Reviewed
Vital Signs / I&O / Oxygen:
Vital Signs
Temp Pulse Resp BP Pulse Ox
98.6 F 63 17 129/59 98
10/15/24 11:14 10/15/24 12:00 10/15/24 12:00 10/15/24 12:00 10/15/24 11:32
Intake and Output
10/14/24 10/15/24 10/16/24
06:59 06:59 06:59
Intake Total 1000 / 1000 200 / 200
Balance 1000 / 1000 200 / 200
SaO2 98
Physical Exam
General: Comfortable
HEENT: Normocephalic
Cardiovascular: S1-S2
Respiratory: Clear and Non-Labored Respirations
GI: Soft and Non Distended
Neurology: Awake, Alert and Oriented (Patient is not oriented)
Skin: Warm
Labs/Micro/Reports
Lab Data
10/15/24 04:10
10/15/24 04:10
Laboratory Results
10/15/24
10:06
PT Cancelled
INR Cancelled
APTT Cancelled
--- NOTE | 2024-10-15 15:37 | PTCARENOTE ---
Patient repeat ct scan completed. Improved appetite. Improved overall interaction and activity with staff. Patient oput of bed to chair one person assist. Using tv remote, able to feed self with minimum assist. Answering questions correctly and
overall improvement as noted. VSS and as documented. Continue follow up rounds, safety checks and skin care protocols. Prep for transfer when bed available.
--- NOTE | 2024-10-15 16:02 | CM ---
CM following re: discharge planning.
Reviewed pt's chart, met with pt and soke to pt's daughter Ivana to update on doscharge plan progress.
PT and OT evaluations noted - SNF level of care recommended.
CM discussed it with pt's daughter Ivana and she advised to call [facility] to coordinate discharge plan and per daughter she preferred her father returns back to [facility] with [facility].
CM spoke t [facility] RN Nika and she confirmed that pt will be accepted back with [facility].
A referral to [facility] made.
D/C plan: return back to [facility] with [facility].
--- NOTE | 2024-10-15 17:00 | CON.MD ---
Documented by User: Alexsandra Ashraf PA-C 10/15/24 18:10
Consultation - Medical
-
Referring Provider:�Jeffrey Mitchell
Chief Complaint:�CVA
History of Present Illness: 79 year old Patient with chronic history of ( underlying significant dementia and recurrent head injuries including subdural hematoma and evacuation, CAD, CHF, HTN, Hypercholesterolemia, Hypothyroidism and Other
(Diverticulitis with perforation 2008, sepsis syndrome after colon reversal 22 complications. Polymyalgia rheumatica, adrenal insufficiency, osteopenia, Rheumatoid arthritis, SDH, dementia) presented to ED on 10/13/[address] head showed
no acute intracranial abnormality, and CTA head/neck showed a left ICA dissection beginning at the mid cervical portion of the left ICA at the cervical to level and extending contiguously through the distal petrous portion of the left ICA. Also 70%
stenosis of the right ICA. Of note he was here in the ER on 10/11/2024 after he fell and hit the back of his head - CT head at that time showed no acute intracranial abnormality, and CT C-spine showed no acute fracture or dislocation.
Patient was given tenecteplase as remediation therapy. No indication for echocardiogram at this time as the patient is not a candidate for therapies as suggested in the therapeutic trials. Neuro recommending checking MRI if possible without
contrast. Initiate aspirin 81 mg daily following MRI of brain imaging if there is no evidence of hemorrhaging conversion or changes. Provide thiamine. Lower his usual prednisone dose most likely been utilized for his prior history of remote
rheumatic arthritis
Had repeat CT scan of Head- 10/15/2024- 1500
Trace intraventricular hemorrhage, slightly decreased from prior.
CT scan of Head- 10/15/24 @ 9:45 am
Trace intraventricular hemorrhage within the occipital horns bilaterally, new from prior. No additional intracranial hemorrhage. No midline shift or herniation.
Past Medical History: significant dementia and recurrent head injuries including subdural hematoma, CAD, CHF, HTN, Hypercholesterolemia, Hypothyroidism and Other (Diverticulitis with perforation 2008, sepsis syndrome after colon reversal 22
complications. Polymyalgia rheumatica, adrenal insufficiency, osteopenia, Rheumatoid arthritis, SDH, dementia)
Procedure History:�Appendectomy, Bowel resection-, Brain (Subdural hematoma evacuation) and Orthopedic (Right femur mello, right foot surgery), ruptured diverticulitis with colectomy/colostomy
Family History:�Hypertension
�
Social History:�
Functional Level Premorbidly: Assisted with ADLs, able to feed himself, incontinent, push the wheelchair around for mobility- resides at [facility]
Functional Level Currently:�Transfer�mod assist�sit to stand, stand to sit�min assist, ambulation 5 feet time 1 with rolling walker and mod assist x 2
Tobacco:�Denies�
Alcohol:Former
Drug use:�Denies�
�
Lives with:�[facility]�6-7 years, assistance with ADLs, wheelchair to assist with ambulation
24-hour assistance available:�yes
Number of floors:�1
# steps to enter:�0
# steps to second floor:0
Potential First floor set up:�yes
Driving:�No
Occupation: Retired�
�
Allergies:�
Allergy/AdvReac Type Severity Reaction Status Date / Time
diflunisal Allergy WIGGINS Verified 06/19/22 12:39
JOHNSONS
SYNDROME
penicillin V Allergy Anaphylaxis Verified 06/19/22 12:39
pentazocine Allergy DIFFICULTY Verified 06/19/22 12:39
BREATHING,
HALLUCINATIONS
tramadol HCl [From Ultram] Allergy HALLUCINATI Verified 06/19/22 12:39
ONS
�
Review of Systems:�
Constitutional: (x) Normal _
Eye: (x) Normal _
Ear/Nose/Throat: (x) Normal _
Respiratory: (x) Normal _
Cardiovascular: (x) abNormal _
Gastrointestinal: (x) abNormal _multiple surgeries with complications
Genitourinary: (x) abNormal _
Musculoskeletal: (x) Normal _
Integumentary: (x) Normal _
Neurologic: (x) abNormal _cva, hemiparesis, dysphagia, aphasia,
Psychiatric: (x) abNormal _dementia
Endocrine: (x) Normal _
Hematologic/Lymphatic: (x) Normal _
Allergic/Immunologic: (x) Normal _
�
Medications:�
Active Current Visit Medication List
Category Date Time Status
Atorvastatin [Lipitor] Med 10/14/24 22:00 Active
40 mg PO HS
Dextrose 50%-Water [Dextrose 50% Syringe] Med 10/13/24 16:16 Active
12.5 grams IV [id number] PRN
Flush (0.9% Sodium Chloride) [Flush (Nss)] Med 10/13/24 17:00 Active
See Dose Instructions IV PER PROTOCOL
Glucagon [GlucaGen] Med 10/13/24 16:16 Active
1 mg IM PRN PRN
Insulin Aspart Corrective Mod [Novolog Flexpen-Moderate Med 10/15/24 07:30 Active
Resistance]
See Protocol SC AC
Labetalol HCl [Trandate] Med 10/13/24 16:16 Active
5 mg IV Q6HPRN PRN
Levothyroxine [Synthroid] Med 10/14/24 06:00 Active
88 mcg PO DAILY@0600
Metoprolol Xl [Toprol Xl] Med 10/14/24 08:00 Active
25 mg PO DAILY
Pantoprazole [Protonix] Med 10/14/24 08:00 Active
40 mg PO DAILY
Prednisone [Deltasone] Med 10/14/24 08:00 Active
2.5 mg PO DAILY
Sertraline HCl [Zoloft] Med 10/14/24 08:00 Active
75 mg PO DAILY
Tamsulosin [Flomax] Med 10/13/24 22:00 Active
0.4 mg PO HS
Thiamine HCl [Vitamin B1] Med 10/14/24 10:00 Active
100 mg PO DAILY
Vitals:�
Temp Pulse Resp BP Pulse Ox
97.7 F 62 16 130/56 97
10/15/24 08:00 10/15/24 05:05 10/15/24 05:05 10/15/24 05:05 10/15/24 05:05
Actual Weight 81.4 kg
�
Physical Exam:�
General Appearance/Observation: Well-developed, well-nourished individual in no apparent distress.�Tremors not noted
Pain/Comfort Assessment: Denies�
Mood/Affect: Appropriate, memory impaired
�
Integumentary/Operative Site:�
�� Pressure Ulcer Evaluation: absent over heels.�
��
�� Other Type of Wound: healed wound- right side of head- from ghanshyam hole. bruising - dorsum of hands
��
�
Eyes: Conjunctiva/Lids: normal���� Pupils: pupils equal round and reactive to light and Accommodation�
Ears/Nose/Throat: oral mucosa moist,� throat clear.������������ Lips/Teeth/Gums: missing some teeth�
Neck: No muscle spasm or tenderness�
Cardiovascular: Heart: regular, no murmur�
Pulses: dorsalis pedis 2+ bilaterally�
Respiratory: Respiratory Effort/Chest Expansion: normal������� Auscultation: Clear to auscultation bilaterally�
Gastrointestinal: abdomen not tender, no distension, normal abdominal bowel sounds, gurgling
Genitourinary: No Austin�
Extremities:�Edema: None�Cyanosis: None�Trophic�changes: None
hypopigmentation of skin- left arm- scars
Neurology Exam:
Orientation: Alert, Oriented to self, month, date, not - 1982, Place�- [facility]
Memory: Impaired, says here because of a fever, lives with his parents then said lives with his and his in laws live in the house
Comprehension: Impaired
Two step command: Impaired
Naming: intact
Cranial Nerves:
�� CNII:�Pupillary light reflex: Intact����Visual Field: intact
�� CN III, IV, : Extraocular muscles: Intact�
�� CN V:�Facial Sensation�at�Forehead: intact,�Maxilla: intact,�Mandible: intact
�� CN VII:�Facial movement: Symmetric
�� CN VIII:�Hearing: response better to normal conversation volume, needed repeating with soft spoken voice
�� CN IX/X:�Speech & swallow: able to understand patient, seems normal�Position of Uvula: Midline
�� CN XI:�Shoulder shrug: Symmetric
�� CN XII:�Tongue protrusion: Midline
Sensory:
�� Light touch: Intact in bilateral upper and lower extremities
��
�
Reflexes:
�� Biceps: 2+ bilaterally
�� Brachioradialis: 2+ bilaterally
�� Triceps: 2+ bilaterally
�� Patellar: absent bilaterally
�� Achilles: absent bilaterally
�� Babinski: no response on right , downgoing on left
�� Clonus: None
�� Morenita: Negative bilaterally�
Cerebellar: Dysmetria/Ataxia: None�
Musculoskeletal:
Motor: (Manual muscle scale 0-5)�
Muscle SA EF WE EE FF FA HF KE DF EHL PF
Right� - 5 4 4 4 - 5 5 5 5 5
Left - 5 4 4 4 5 5 5 5 5
�
Tone: Normal in all extremities�
Range of Motion: Passively within normal limits in all extremities�
�
Lab Results:
Labs
WBC 8.6 10^3/uL (4.8-10.8) 10/15/24 04:10
RBC 4.27 10^6/uL (4.70-6.10) L 10/15/24 04:10
Hgb 12.1 g/dL (13.0-18.0) L 10/15/24 04:10
Hct 37.6 % (39.0-52.0) L 10/15/24 04:10
MCV 88.1 fL (80.0-94.0) 10/15/24 04:10
MCH 28.3 pg (27.0-31.0) 10/15/24 04:10
MCHC 32.2 g/dL (33.0-37.0) L 10/15/24 04:10
RDW 15.1 % (11.5-14.5) H 10/15/24 04:10
Plt Count 420 10^3/uL (130-400) H 10/15/24 04:10
MPV 9.0 fL (7.4-10.4) 10/15/24 04:10
Abs Immat Gran (auto) 0.0 10^3/uL (0-0.05) 10/15/24 04:10
Absolute Neuts (auto) 4.6 10^3/uL (1.4-6.5) 10/15/24 04:10
Absolute Lymphs (auto) 2.5 10^3/uL (1.2-3.4) 10/15/24 04:10
Absolute Monos (auto) 1.2 10^3/uL (0.1-0.6) H 10/15/24 04:10
Absolute Eos (auto) 0.2 10^3/uL (0-0.7) 10/15/24 04:10
Absolute Basos (auto) 0.1 10^3/uL (0-0.2) 10/15/24 04:10
Immature Gran % 0.2 % (0-0.5) 10/15/24 04:10
Neutrophils % 53.5 % (42.2-75.2) 10/15/24 04:10
Lymphocytes % 28.9 % (20.5-51.1) 10/15/24 04:10
Monocytes % 14.1 % (1.7-9.3) H 10/15/24 04:10
Eosinophils % 2.6 % (0-6) 10/15/24 04:10
Basophils % 0.7 % (0-2) 10/15/24 04:10
Nucleated RBC % 0 % (-) 10/15/24 04:10
PT Cancelled 10/15/24 10:06
INR Cancelled 10/15/24 10:06
APTT Cancelled 10/15/24 10:06
Sodium 136 mmol/L (135-145) 10/15/24 04:10
Potassium 4.7 mmol/L (3.5-5.1) 10/15/24 04:10
Chloride 101 mmol/L (98-107) 10/15/24 04:10
Carbon Dioxide 22 mmol/L (22-30) 10/15/24 04:10
BUN 24 mg/dl (9-20) H 10/15/24 04:10
Creatinine 2.1 mg/dL (0.7-1.3) H 10/15/24 04:10
eGFR 31.23 10/15/24 04:10
Glucose 124 mg/dl (70-99) H 10/15/24 04:10
Hemoglobin A1c 7.1 % (4.0-5.6) H 10/14/24 03:38
Calcium 9.2 mg/dl (8.4-10.2) 10/15/24 04:10
Magnesium 1.9 mg/dl (1.6-2.3) 10/13/24 15:00
Total Bilirubin 0.6 mg/dl (0.2-1.3) 10/13/24 15:00
AST 29 U/L (17-59) 10/13/24 15:00
ALT 19 U/L (0-50) 10/13/24 15:00
Alkaline Phosphatase 121 U/L (38-126) 10/13/24 15:00
Troponin I < 0.012 ng/ml 10/13/24 15:00
Total Protein 7.5 g/dl (6.3-8.2) 10/13/24 15:00
Albumin 4.4 g/dl (3.5-5.0) 10/13/24 15:00
Triglycerides 127 mg/dl (10-149) 10/14/24 03:38
Total Cholesterol 161 mg/dl (50-199) 10/14/24 03:38
LDL Cholesterol, Calc 97 mg/dl 10/14/24 03:38
VLDL Cholesterol, Calc 25 mg/dl (0-30) 10/14/24 03:38
HDL Cholesterol 39 mg/dl 10/14/24 03:38
TSH 0.87 uIU/ml (0.47-4.68) 10/14/24 03:38
POC Glucose 169 mg/dl (70-99) H 10/15/24 11:37
Blood Type O POS 10/14/24 04:21
Antibody Screen Negative (Negative) 10/14/24 04:21
�
Diagnostic Results:�as per HPI�
�
Assessment: 86-year-old male with left hemiparesis, found to have right thalamus/posterior limb internal capsule infarct on MRI affecting ADL and ambulation. Patient also found to have tremors, ambulatory dysfunction, falls, dysphagia suspicious
for Parkinson disease or parkinsonism. Started on trial of Sinemet
�
Plan�
�PT/OT to increase independence with ADLs, improve balance, coordination, endurance, strength, mobility, community reintegration, decreased burden of care on others and family education.�
Diagnostic Results:�as per HPI�
CTA head/neck with/without contrast 10/13/2024:
There is left ICA dissection, beginning in the mid cervical portion of the left ICA at the C2 level, and extending contiguously through the distal petrous portion of the left ICA. There does not appear to be involvement of the cavernous portion of
the left ICA. There is contrast opacification of the true and false lumen of the dissection.
Calcific atherosclerotic disease involving the right carotid bulb and proximal right ICA with measured diameter reduction of 70%, which is likely hemodynamically significant.
On the left, measured diameter reduction of 36%, unlikely to be hemodynamically significant.
Anterior cerebral and middle cerebral arteries appear within normal limits.
Vertebral and basilar arteries appear within normal limits with no evidence for high-grade narrowing or dissection. Posterior cerebral arteries appear normal.
�
Assessment: 86-year-old male with left hemiparesis, found to have right thalamus/posterior limb internal capsule infarct on MRI affecting ADL and ambulation. Patient with parkinsonism started on Sinemet . Outpatient evaluation to confirm Parkinson
disease
�
Plan�
PT/OT to increase independence with ADLs, improve balance, coordination, endurance, strength, mobility, community reintegration, decreased burden of care on others and family education.�
�
CVA: right thalamus/posterior limb internal capsule infarct. Could not complete MRI, follow-up CT 10/15/24 showed small intraventricular bleed. Manage conservatively with a follow-up CT scan in 6-hour. Patient was already on aspirin at home.
Initially neuro recommended aspirin and Plavix for 21 days-antiplatelets, anticoagulants�now on hold., statin, and blood pressure control (SBP less than 180 and diastolic less than 100 to participate with therapy for ischemic stroke). .�
Left nondominant hemiparesis: Much improved. High risk for falls and sliding out of chair/bed. Safety reinforced.�
- Avoid using affected arm to help lift or pull patient as this will cause trauma to the shoulder.
Left ICA dissection:conservative management, blood pressure control.
Aphasia: Speech evaluation. Improved
Dysphagia: speech evaluation, aspiration precautions.� Upgraded to solid regular with thin
HTN: continue medications, monitor closely�
HLD: Statin�
Anemia: Monitor
Psych/anxiety, depression: Psychology consult.� monitor mood, adjust medications as needed.�
Skin: monitor for pressure sores/rashes/lesions.�
Chronic Pain Syndrome: acetaminophen as needed.
History of polymyalgia rheumatica :on chronic prednisone therapy.�Continue home dose prednisone. Low threshold to give stress dose steroids in the event of any hemodynamically instability
CKD stage III. monitor labs
Bowel/Chronic constipation: Colace and Senna, PRN bisacodyl.�
Bladder: Time void, PVRs, PRN straight cath.� Continue Flomax
GI Prophylaxis: Pantoprazole�
DVT Prophylaxis: Mechanical
Pulmonary: Incentive spirometry�
Safety: Continue to reinforce assistance with all transfers.�
Code Status:�DNR/DNI
Discharge Destination : Patient would benefit from 1-2 hours of therapy at subacute level as was also recommended by therapy. Patient is returning to [facility] with [place] outpatient rehab.� �
�
�

Documented by User: Salvatore Gallagher MD 10/15/24 22:54
Consultation - Medical
-
Referring Provider:�Jeffrey Mitchell
Chief Complaint:�CVA
History of Present Illness: 79 year old Patient with chronic history of ( underlying significant dementia and recurrent head injuries including subdural hematoma and evacuation, CAD, CHF, HTN, Hypercholesterolemia, Hypothyroidism and Other
(Diverticulitis with perforation 2008, sepsis syndrome after colon reversal complications. Polymyalgia rheumatica, adrenal insufficiency, osteopenia, Rheumatoid arthritis, SDH, dementia) presented to ED on 10/13/[address] head showed
no acute intracranial abnormality, and CTA head/neck showed a left ICA dissection beginning at the mid cervical portion of the left ICA at the cervical to level and extending contiguously through the distal petrous portion of the left ICA. Also 70%
stenosis of the right ICA. Of note he was here in the ER on 10/11/2024 after he fell and hit the back of his head - CT head at that time showed no acute intracranial abnormality, and CT C-spine showed no acute fracture or dislocation.
Patient was given tenecteplase as remediation therapy. No indication for echocardiogram at this time as the patient is not a candidate for therapies as suggested in the therapeutic trials. Neuro recommending checking MRI if possible without
contrast. Initiate aspirin 81 mg daily following MRI of brain imaging if there is no evidence of hemorrhaging conversion or changes. Provided thiamine. Lowered his usual prednisone dose for polymyalgia rheumatica
Had repeat CT scan of Head- 10/15/2024- 1500
Trace intraventricular hemorrhage, slightly decreased from prior.
CT scan of Head- 10/15/24 @ 9:45 am
Trace intraventricular hemorrhage within the occipital horns bilaterally, new from prior. No additional intracranial hemorrhage. No midline shift or herniation.
Past Medical History: significant dementia and recurrent head injuries including subdural hematoma, CAD, CHF, HTN, Hypercholesterolemia, Hypothyroidism and Other (Diverticulitis with perforation 2008, sepsis syndrome after colon reversal
complications. Polymyalgia rheumatica, adrenal insufficiency, osteopenia, Rheumatoid arthritis, SDH, dementia)
Procedure History:�Appendectomy, Bowel resection-, Brain (Subdural hematoma evacuation) and Orthopedic (Right femur mello, right foot surgery), ruptured diverticulitis with colectomy/colostomy
Family History:�Hypertension
�
Social History:�
Functional Level Premorbidly: Assisted with ADLs, able to feed himself, incontinent, push the wheelchair around for mobility- resides at [facility]
Functional Level Currently:�Transfer�mod assist�sit to stand, stand to sit�min assist, ambulation 5 feet time 1 with rolling walker and mod assist x 2
Tobacco:�Denies�
Alcohol:Former
Drug use:�Denies�
�
Lives with:�[facility]�6-7 years, assistance with ADLs, wheelchair to assist with ambulation
24-hour assistance available:�yes
Number of floors:�1
# steps to enter:�0
# steps to second floor:0
Potential First floor set up:�yes
Driving:�No
Occupation: Retired�
�
Allergies:�
Allergy/AdvReac Type Severity Reaction Status Date / Time
diflunisal Allergy WIGGINS Verified 06/19/22 12:39
JOHNSONS
SYNDROME
penicillin V Allergy Anaphylaxis Verified 06/19/22 12:39
pentazocine Allergy DIFFICULTY Verified 06/19/22 12:39
BREATHING,
HALLUCINATIONS
tramadol HCl [From Ultram] Allergy HALLUCINATI Verified 06/19/22 12:39
ONS
�
Review of Systems:�Initially denied any concerns of her being tired, during course of discussion:
Constitutional: (x) abNormal _tired
Eye: (x) Normal _
Ear/Nose/Throat: (x) Normal _
Respiratory: (x) Normal _
Cardiovascular: (x) abNormal _
Gastrointestinal: (x) abNormal _multiple surgeries with complications
Genitourinary: (x) abNormal _
Musculoskeletal: (x) Normal _
Integumentary: (x) Normal _
Neurologic: (x) abNormal _cva, hemiparesis, dysphagia, aphasia,
Psychiatric: (x) abNormal _dementia
Endocrine: (x) Normal _
Hematologic/Lymphatic: (x) Normal _
Allergic/Immunologic: (x) Normal _
�
Medications:�
Active Current Visit Medication List
Category Date Time Status
Atorvastatin [Lipitor] Med 10/14/24 22:00 Active
40 mg PO HS
Dextrose 50%-Water [Dextrose 50% Syringe] Med 10/13/24 16:16 Active
12.5 grams IV [id number] PRN
Flush (0.9% Sodium Chloride) [Flush (Nss)] Med 10/13/24 17:00 Active
See Dose Instructions IV PER PROTOCOL
Glucagon [GlucaGen] Med 10/13/24 16:16 Active
1 mg IM PRN PRN
Insulin Aspart Corrective Mod [Novolog Flexpen-Moderate Med 10/15/24 07:30 Active
Resistance]
See Protocol SC AC
Labetalol HCl [Trandate] Med 10/13/24 16:16 Active
5 mg IV Q6HPRN PRN
Levothyroxine [Synthroid] Med 10/14/24 06:00 Active
88 mcg PO DAILY@0600
Metoprolol Xl [Toprol Xl] Med 10/14/24 08:00 Active
25 mg PO DAILY
Pantoprazole [Protonix] Med 10/14/24 08:00 Active
40 mg PO DAILY
Prednisone [Deltasone] Med 10/14/24 08:00 Active
2.5 mg PO DAILY
Sertraline HCl [Zoloft] Med 10/14/24 08:00 Active
75 mg PO DAILY
Tamsulosin [Flomax] Med 10/13/24 22:00 Active
0.4 mg PO HS
Thiamine HCl [Vitamin B1] Med 10/14/24 10:00 Active
100 mg PO DAILY
Vitals:�
Temp Pulse Resp BP Pulse Ox
97.7 F 62 16 130/56 97
10/15/24 08:00 10/15/24 05:05 10/15/24 05:05 10/15/24 05:05 10/15/24 05:05
Actual Weight 81.4 kg
�
Physical Exam:�
General Appearance/Observation: Well-developed, well-nourished male in no apparent distress.�Tremors not noted
Pain/Comfort Assessment: Denies�
Mood/Affect: Appropriate, memory impaired
�
Integumentary/Operative Site:�bruising - dorsum of hands
�� Pressure Ulcer Evaluation: absent over heels.�
��
�
Eyes: Conjunctiva/Lids: normal���� Pupils: pupils equal round and reactive to light and Accommodation�
Ears/Nose/Throat: oral mucosa moist,� throat clear.������������ Lips/Teeth/Gums: missing some teeth�
Cardiovascular: Heart: regular, no murmur�
Pulses: dorsalis pedis 2+ bilaterally�
Respiratory: Respiratory Effort/Chest Expansion: normal������� Auscultation: Clear to auscultation bilaterally�
Gastrointestinal: abdomen not tender, no distension, normal abdominal bowel sounds, gurgling
Genitourinary: No Austin�
Extremities:�Edema: None�Cyanosis: None�Trophic�changes: None
hypopigmentation of skin- left arm- scars
Neurology Exam:
Orientation: Alert, Oriented to self, month, date, not year - 1982, Place�- [facility]
Memory: Impaired, says here because of a fever, lives with his parents then said lives with his and his in laws live in the house
Comprehension: Impaired
Two step command: Impaired
Naming: intact
Cranial Nerves:
�� CNII:�Pupillary light reflex: Intact����Visual Field: intact
�� CN III, IV, : Extraocular muscles: Intact�
�� CN V:�Facial Sensation�at�Forehead: intact,�Maxilla: intact,�Mandible: intact
�� CN VII:�Facial movement: Symmetric
�� CN VIII:�Hearing: response better to normal conversation volume, needed repeating with soft spoken voice
�� CN IX/X:�Speech & swallow: able to understand patient, seems normal�Position of Uvula: Midline
�� CN XI:�Shoulder shrug: Symmetric
�� CN XII:�Tongue protrusion: Midline
Sensory:
�� Light touch: Intact in bilateral upper and lower extremities
��
�
Reflexes:
�� Biceps: 2+ bilaterally
�� Brachioradialis: 2+ bilaterally
�� Triceps: 2+ bilaterally
�� Patellar: absent bilaterally
�� Achilles: absent bilaterally
�� Babinski: no response on right , downgoing on left
�� Clonus: None
�� Morenita: Negative bilaterally�
Cerebellar: Dysmetria/Ataxia: None�
Musculoskeletal:
Motor: (Manual muscle scale 0-5)�
Muscle SA EF WE EE FF FA HF KE DF EHL PF
Right� - 5 4 4 4 - 4 5 5 5 5
Left - 4 4 4 4 4 5 5 5 5
�
Tone: Normal in all extremities�
Range of Motion: Passively within normal limits in all extremities�
�
Lab Results:
Labs
WBC 8.6 10^3/uL (4.8-10.8) 10/15/24 04:10
RBC 4.27 10^6/uL (4.70-6.10) L 10/15/24 04:10
Hgb 12.1 g/dL (13.0-18.0) L 10/15/24 04:10
Hct 37.6 % (39.0-52.0) L 10/15/24 04:10
MCV 88.1 fL (80.0-94.0) 10/15/24 04:10
MCH 28.3 pg (27.0-31.0) 10/15/24 04:10
MCHC 32.2 g/dL (33.0-37.0) L 10/15/24 04:10
RDW 15.1 % (11.5-14.5) H 10/15/24 04:10
Plt Count 420 10^3/uL (130-400) H 10/15/24 04:10
MPV 9.0 fL (7.4-10.4) 10/15/24 04:10
Abs Immat Gran (auto) 0.0 10^3/uL (0-0.05) 10/15/24 04:10
Absolute Neuts (auto) 4.6 10^3/uL (1.4-6.5) 10/15/24 04:10
Absolute Lymphs (auto) 2.5 10^3/uL (1.2-3.4) 10/15/24 04:10
Absolute Monos (auto) 1.2 10^3/uL (0.1-0.6) H 10/15/24 04:10
Absolute Eos (auto) 0.2 10^3/uL (0-0.7) 10/15/24 04:10
Absolute Basos (auto) 0.1 10^3/uL (0-0.2) 10/15/24 04:10
Immature Gran % 0.2 % (0-0.5) 10/15/24 04:10
Neutrophils % 53.5 % (42.2-75.2) 10/15/24 04:10
Lymphocytes % 28.9 % (20.5-51.1) 10/15/24 04:10
Monocytes % 14.1 % (1.7-9.3) H 10/15/24 04:10
Eosinophils % 2.6 % (0-6) 10/15/24 04:10
Basophils % 0.7 % (0-2) 10/15/24 04:10
Nucleated RBC % 0 % (-) 10/15/24 04:10
PT Cancelled 10/15/24 10:06
INR Cancelled 10/15/24 10:06
APTT Cancelled 10/15/24 10:06
Sodium 136 mmol/L (135-145) 10/15/24 04:10
Potassium 4.7 mmol/L (3.5-5.1) 10/15/24 04:10
Chloride 101 mmol/L (98-107) 10/15/24 04:10
Carbon Dioxide 22 mmol/L (22-30) 10/15/24 04:10
BUN 24 mg/dl (9-20) H 10/15/24 04:10
Creatinine 2.1 mg/dL (0.7-1.3) H 10/15/24 04:10
eGFR 31.23 10/15/24 04:10
Glucose 124 mg/dl (70-99) H 10/15/24 04:10
Hemoglobin A1c 7.1 % (4.0-5.6) H 10/14/24 03:38
Calcium 9.2 mg/dl (8.4-10.2) 10/15/24 04:10
Magnesium 1.9 mg/dl (1.6-2.3) 10/13/24 15:00
Total Bilirubin 0.6 mg/dl (0.2-1.3) 10/13/24 15:00
AST 29 U/L (17-59) 10/13/24 15:00
ALT 19 U/L (0-50) 10/13/24 15:00
Alkaline Phosphatase 121 U/L (38-126) 10/13/24 15:00
Troponin I < 0.012 ng/ml 10/13/24 15:00
Total Protein 7.5 g/dl (6.3-8.2) 10/13/24 15:00
Albumin 4.4 g/dl (3.5-5.0) 10/13/24 15:00
Triglycerides 127 mg/dl (10-149) 10/14/24 03:38
Total Cholesterol 161 mg/dl (50-199) 10/14/24 03:38
LDL Cholesterol, Calc 97 mg/dl 10/14/24 03:38
VLDL Cholesterol, Calc 25 mg/dl (0-30) 10/14/24 03:38
HDL Cholesterol 39 mg/dl 10/14/24 03:38
TSH 0.87 uIU/ml (0.47-4.68) 10/14/24 03:38
POC Glucose 169 mg/dl (70-99) H 10/15/24 11:37
Blood Type O POS 10/14/24 04:21
Antibody Screen Negative (Negative) 10/14/24 04:21
�
Diagnostic Results:�as per HPI�
CTA head/neck with/without contrast 10/13/2024:
There is left ICA dissection, beginning in the mid cervical portion of the left ICA at the C2 level, and extending contiguously through the distal petrous portion of the left ICA. There does not appear to be involvement of the cavernous portion of
the left ICA. There is contrast opacification of the true and false lumen of the dissection.
Calcific atherosclerotic disease involving the right carotid bulb and proximal right ICA with measured diameter reduction of 70%, which is likely hemodynamically significant.
On the left, measured diameter reduction of 36%, unlikely to be hemodynamically significant.
Anterior cerebral and middle cerebral arteries appear within normal limits.
Vertebral and basilar arteries appear within normal limits with no evidence for high-grade narrowing or dissection. Posterior cerebral arteries appear normal.
��
Assessment:
86-year-old right-handed male with left hemiparesis, found to have right thalamus/posterior limb internal capsule infarct on MRI affecting ADL and ambulation. Patient also found to have tremors, ambulatory dysfunction, falls, dysphagia suspicious
for Parkinson disease or parkinsonism. Started on trial of Sinemet
Plan�
PT/OT to increase independence with ADLs, improve balance, coordination, endurance, strength, mobility, community reintegration, decreased burden of care on others and family education.�
�
CVA: right thalamus/posterior limb internal capsule infarct. Could not complete MRI, follow-up CT 10/15/24 showed small intraventricular bleed. Manage conservatively with a follow-up CT scan in 6-hour. Patient was already on aspirin at home.
Initially neuro recommended aspirin and Plavix for 21 days-antiplatelets, anticoagulants�now on hold., statin, and blood pressure control (SBP less than 180 and diastolic less than 100 to participate with therapy for ischemic stroke). .�
Left nondominant hemiparesis: Much improved. High risk for falls and sliding out of chair/bed. Safety reinforced.�
- Avoid using affected arm to help lift or pull patient as this will cause trauma to the shoulder.
Left ICA dissection:conservative management, blood pressure control.
Aphasia: Speech evaluation. Improved
Dysphagia: speech evaluation, aspiration precautions.� Upgraded to solid regular diet with thin liquids
HTN: Metoprolol, monitor closely�
HLD: Statin�
Anemia: Monitor
Psych/anxiety, depression:monitor mood, medications as needed.�
Skin: monitor for pressure sores/rashes/lesions.�
Chronic Pain Syndrome: acetaminophen as needed.
History of polymyalgia rheumatica :on chronic prednisone therapy.�Continue home dose prednisone. Low threshold to give stress dose steroids in the event of any hemodynamically instability
CKD stage III. monitor labs
Bowel/Chronic constipation: Colace and Senna, PRN bisacodyl.�
Bladder: Time void, PVRs, PRN straight cath.� Flomax
GI Prophylaxis: Pantoprazole�
DVT Prophylaxis: Mechanical, chemoprophylaxis held with bleed in the brain
Pulmonary: Incentive spirometry�
Safety: Continue to reinforce assistance with all transfers.�
Code Status:�DNR/DNI
Discharge Destination : Patient would benefit from 1-2 hours of therapy at subacute level as was also recommended by therapy. Patient is returning to [facility] with [place] outpatient rehab.�
Attending Statement:
I saw and examined the patient today. Reviewed care plan with patient, therapy, nursing, and physician carpenter assistant installer. I agree with the above subjective and physical exam, and plan as documented by MARBIN Ashraf with adjustments made as necessary.�
�
�
[2024-10-15 17:03] LABS: Glucose - Point of Care 153 mg/dl (70-99)
--- NOTE | 2024-10-15 17:30 | PTCARENOTE ---
1730 Pt transferred from ICU via bed alert and verbalizing, denies discomfort. Noted MD orders. Place on telemetry (Normal Sinus Rythym) VS stable. Neurocheck done and NIH stroke scale score level 4. Pt able to eat dinner meal tolerated, continue
to monitor closely.
[2024-10-15] MEDS: FLOMAX 0.4 MG PO (20:30)
[2024-10-15] MEDS: LIPITOR 40 MG PO (20:30)
[2024-10-15 20:49] LABS: Glucose - Point of Care 187 mg/dl (70-99)
[2024-10-16] VITALS (7 sets, daily range): BP systolic 115–151; BP diastolic 49–72
--- NOTE | 2024-10-16 04:37 | DOWNTIME ---
There was a LessThan3 Client Telephone Instrument Supervisor Downtime on 10/16/2024 from 0100 to 10/17/2023 at 0420 . Downtime documentation of patient's care, including medication administrations, has been reconciled in the electronic record per guidelines. Refer to the
patient's paper chart under the miscellaneous tab to see printed paper medication records and downtime forms.
[2024-10-16] MEDS: SYNTHROID 88 MCG PO (05:55)
[2024-10-16 07:01] LABS: Glucose - Point of Care 142 mg/dl (70-99)
[2024-10-16] MEDS: NOVOLOG FLEXPEN-MODERATE RESISTANCE SC (07:14)
[2024-10-16 08:07] LABS: Hematocrit 37.9 % (39.0-52.0); Hemoglobin 12.3 g/dL (13.0-18.0); Mean Corp Hgb Conc. 32.5 g/dL (33.0-37.0); Mean Corpuscular Volume 86.3 fL (80.0-94.0); Platelet Count 501 10^3/uL (130-400); Red Blood Cell Count 4.39 10^6/uL (4.70-6.10); Red Cell Dist. Width 14.9 % (11.5-14.5)
[2024-10-16] MEDS: DELTASONE 2.5 MG PO (08:40)
[2024-10-16] MEDS: PROTONIX 40 MG PO (08:40)
[2024-10-16] MEDS: ASPIR LOW (ENTERIC COATED) 81 MG PO (08:40)
[2024-10-16] MEDS: VITAMIN B1 100 MG PO (08:41)
[2024-10-16] MEDS: TOPROL XL 25 MG PO (08:41)
[2024-10-16] MEDS: ZOLOFT 75 MG PO (08:41)
[2024-10-16 08:50] LABS: Blood Urea Nitrogen 25 mg/dl (9-20); Calcium 9.1 mg/dl (8.4-10.2); Carbon Dioxide 19 mmol/L (22-30); Chloride 101 mmol/L (98-107); Glucose 140 mg/dl (70-99); Potassium 4.7 mmol/L (3.5-5.1); Sodium 135 mmol/L (135-145); eGFR 29.54
--- NOTE | 2024-10-16 11:02 | W.PN.HOSP.TC ---
Today's Communication/Plan
-
MRI brain pedning
CM for rehab
Assessment / Plan
Assessment / Plan
79yo M with PMHX of hypothyroidism, DM, HTN, HLD, GERD, BPH brought from SNF with new dysphasia and aphasia, as well as RUE weakness and R fascial droop. Had TNK in ED and admitted to ICU for the monitoring. CTA head and neck showed L carotid
dissection and as per discussion with neurosurgery and vascular SX - discussed with [facility] neurology. As per discussion - no indication for transfer as no surgical management would be indicated. Furthermore - as per Peel Oven Tender discussion with
family - they were not willing to consider transfer.
Patient eventually improved, but repeated CT showed Trace intraventricular hemorrhage within the occipital horns bilaterally, No midline shift or herniation., not worsened on repeated CT so neurology started ASA. Mentation and speech much improved
A/P:
#CVA/TIA
#L carotid dissection
#R carotid stenosis
#Trace intraventricular hemorrhage within the occipital horns bilaterally
Reviewed CT findings with neurologist. ASA to hold, since patient improving - follow up with repeated CT head as hemorrhage is minimal
Control BP
Antiplatelets as per neurologist
MRI head - did not tolerate first one
Echo cancelled by neurologist - agree
Neurochecks
LDL 97 - switch to atorvastatin
Telemetry without clinically significant arrhythmia
Follow neurology reccs for carotid stenosis and dissection mgmt
#DM type 2 with circulatory complications
Insulin SS, DM diet, Accuchecks
#Leukocytosis - resolved off Abx
#Thrombocytosis - improving
#Mild anemia
Chronic, recommend outpatient journeyman plumber
#Dysphagia
2/2 recent CVA/TIA
RETURN TO VENDOR recommended dysphagia diet
#Hypothyroidism
TSH WNL
cont Synthroid
#CKD stage 3b
follow Cr, baseline 1.9-2.1
#PMR on prednisone
#RA
#Iatrogenic adrenal insufficiency
#BPH
Watch for urinary retention
cont home meds
DVT ppx SCDs (recent TNK)
DNR/DNI
I have spent at least 38min reviewing chart, test results, communication with consultants and providing direct patient care
Anticipated Discharge: Within 24 hours
Subjective/Interval History
-
Date of Service: October 16, 2024
Objective Data
-
Labs:
Laboratory Results
10/16/24
06:56
WBC 13.0 H
Hgb 12.3 L
Hct 37.9 L
Plt Count 501 H
Sodium 135
Potassium 4.7
Chloride 101
Carbon Dioxide 19 L
BUN 25 H
Creatinine 2.2 H
Glucose 140 H
Calcium 9.1
Vital Signs:
Vital Signs
Temp Pulse Resp BP Pulse Ox
98.5 F 77 14 129/59 96
10/16/24 06:42 10/16/24 08:41 10/16/24 06:42 10/16/24 08:41 10/16/24 06:42
I&O
10/15/24 10/16/24 10/17/24
06:59 06:59 06:59
Intake Total 1000 / 1000 680 / 680
Balance 1000 / 1000 680 / 680
Review of Systems
-
History Source: Patient
All other systems: Reviewed and negative
Physical Exam
-
General: No Apparent Distress
HEENT: Normocephalic
Respiratory: Clear to Auscultation
Cardiac: Regular Rhythm
GI: Soft, Nontender and Nondistended
Musculoskeletal: No Clubbing, No Cyanosis and No Edema
Neuro: Awake, Alert and Oriented
Psych: Calm and Apparent Dementia
[2024-10-16 12:02] LABS: Glucose - Point of Care 200 mg/dl (70-99)
[2024-10-16] MEDS: NOVOLOG FLEXPEN-MODERATE RESISTANCE 3 UNITS SC (12:14)
--- NOTE | 2024-10-16 14:45 | CM ---
CM spoke with nurse Cami from [place] ([phone]), discussed PT recommendations of SNF, patient/family prefers to return to facility with PT. Cami will come to Hospital tomorrow to evaluate patient, feel as though patient will be able to
return to facility with outpatient PT. CM will continue to follow for all discharge planning needs.
Plan; return to [place] with [facility] outpatient PT likely, nurse from [place] will assess pt tomorrow prior to 3:30 p.m.
[2024-10-16 17:31] LABS: Glucose - Point of Care 159 mg/dl (70-99)
[2024-10-16] MEDS: NOVOLOG FLEXPEN-MODERATE RESISTANCE 1 UNITS SC (17:56)
[2024-10-16] MEDS: NSS (PRESERVATIVE FREE) 0.25 ML IV (19:15)
[2024-10-16] MEDS: FLOMAX 0.4 MG PO (19:17)
[2024-10-16] MEDS: LIPITOR 40 MG PO (19:17)
[2024-10-16] MEDS: ATIVAN 0.5 MG IV (19:17)
[2024-10-16 23:02] LABS: Glucose - Point of Care 119 mg/dl (70-99)
[2024-10-17 03:44] VITALS: BP 135/69
[2024-10-17] MEDS: SYNTHROID 88 MCG PO (05:21)
[2024-10-17 07:17] VITALS: BP 140/50
[2024-10-17 07:33] LABS: Glucose - Point of Care 124 mg/dl (70-99)
[2024-10-17] MEDS: NOVOLOG FLEXPEN-MODERATE RESISTANCE SC ×2 (08:16→17:07)
[2024-10-17] MEDS: ZOLOFT 75 MG PO (08:59)
[2024-10-17] MEDS: VITAMIN B1 100 MG PO (08:59)
[2024-10-17] MEDS: ASPIR LOW (ENTERIC COATED) 81 MG PO (08:59)
[2024-10-17] MEDS: DELTASONE 2.5 MG PO (08:59)
[2024-10-17] MEDS: PROTONIX 40 MG PO (08:59)
[2024-10-17] MEDS: TOPROL XL 25 MG PO (09:03)
[2024-10-17 11:22] VITALS: BP 128/74
--- NOTE | 2024-10-17 11:32 | W.PN.HOSP.TC ---
Today's Communication/Plan
-
D/C planning
Assessment / Plan
Assessment / Plan
79yo M with PMHX of hypothyroidism, DM, HTN, HLD, GERD, BPH brought from SNF with new dysphasia and aphasia, as well as RUE weakness and R fascial droop. Had TNK in ED and admitted to ICU for the monitoring. CTA head and neck showed L carotid
dissection and as per discussion with neurosurgery and vascular SX - discussed with [facility] neurology. As per discussion - no indication for transfer as no surgical management would be indicated. Furthermore - as per Senior Group Manager discussion with
family - they were not willing to consider transfer.
Patient eventually improved, but repeated CT showed Trace intraventricular hemorrhage within the occipital horns bilaterally, No midline shift or herniation., not worsened on repeated CT so neurology started ASA. Mentation and speech much improved,
but became more lethargic after MRI probably 2/[address] head showed small volume intraventricular hemorrhage in the occipital horns, not appreciably changed compared to the recent head CT from 10/15/2024
A/P:
#CVA/TIA
#L carotid dissection
#R carotid stenosis
#Trace intraventricular hemorrhage within the occipital horns bilaterally
Reviewed CT findings with neurologist. ASA to hold, since patient improving - follow up with repeated CT head as hemorrhage is minimal
Control BP
Antiplatelets as per neurologist
MRI head - 2mm stroke in L parietal lobe
Echo cancelled by neurologist - agree
Neurochecks
LDL 97 - switch to atorvastatin
Telemetry without clinically significant arrhythmia
Follow neurology reccs for carotid stenosis and dissection mgmt
#DM type 2 with circulatory complications
Insulin SS, DM diet, Accuchecks
#Leukocytosis - resolved off Abx
#Thrombocytosis - improving
#Mild anemia
Chronic, recommend outpatient sales floor team leader
#Dysphagia
2/2 recent CVA/TIA
AWNING HANGER HELPER recommended dysphagia diet
#Hypothyroidism
TSH WNL
cont Synthroid
#CKD stage 3b
follow Cr, baseline 1.9-2.1
#PMR on prednisone
#RA
#Iatrogenic adrenal insufficiency
#BPH
Watch for urinary retention
cont home meds
DVT ppx SCDs (recent TNK)
DNR/DNI
I have spent at least 38min reviewing chart, test results, communication with consultants and providing direct patient care
Anticipated Discharge: Within 24 hours
Subjective/Interval History
-
Date of Service: October 17, 2024
Objective Data
-
Vital Signs:
Vital Signs
Temp Pulse Resp BP Pulse Ox
97.5 F 68 19 128/74 99
10/17/24 11:22 10/17/24 11:22 10/17/24 11:22 10/17/24 11:22 10/17/24 11:22
I&O
10/16/24 10/17/24 10/18/24
06:59 06:59 06:59
Intake Total 680 / 680 0 / 0
Output Total 0 / 0
Balance 680 / 680 0 / 0
Review of Systems
-
Unable to obtain full review of systems at this time due to: Other (lerthargic, but arousable and voice no complains)
Physical Exam
-
General: No Apparent Distress and Comfortable
Neuro: Other (lethargic)
Psych: Calm
[2024-10-17 13:02] LABS: Glucose - Point of Care 242 mg/dl (70-99)
[2024-10-17 13:06] LABS: % Basophils 0.5 % (0-2); % Eosinophils 1.6 % (0-6); % Immature Granulocytes 0.5 % (0-0.5); % Lymphocytes 10.9 % (20.5-51.1); % Monocytes 7.8 % (1.7-9.3); % Neutrophils 78.7 % (42.2-75.2); Absolute Basophils 0.1 10^3/uL (0-0.2); Absolute Eosinophils 0.2 10^3/uL (0-0.7); Absolute Immature Granulocytes 0.1 10^3/uL (0-0.05); Absolute Lymphocytes 1.4 10^3/uL (1.2-3.4); Absolute Neutrophils 9.7 10^3/uL (1.4-6.5); Hematocrit 36.5 % (39.0-52.0); Hemoglobin 11.8 g/dL (13.0-18.0); Mean Corp Hgb Conc. 32.3 g/dL (33.0-37.0); Mean Corpuscular Hgb 28.4 pg (27.0-31.0); Mean Corpuscular Volume 87.7 fL (80.0-94.0); Mean Platelet Volume 8.8 fL (7.4-10.4); Nucleated Red Blood Cells % 0 % (-); Platelet Count 406 10^3/uL (130-400); Red Blood Cell Count 4.16 10^6/uL (4.70-6.10); White Blood Cell Count 12.3 10^3/uL (4.8-10.8)
[2024-10-17] MEDS: NOVOLOG FLEXPEN-MODERATE RESISTANCE 3 UNITS SC (13:24)
[2024-10-17 13:37] LABS: ALT (SGPT) 15 U/L (0-50); AST (SGOT) 24 U/L (17-59); Albumin 3.7 g/dl (3.5-5.0); Alkaline Phosphatase 107 U/L (38-126); Blood Urea Nitrogen 33 mg/dl (9-20); Carbon Dioxide 20 mmol/L (22-30); Chloride 102 mmol/L (98-107); Glucose 249 mg/dl (70-99); Potassium 4.3 mmol/L (3.5-5.1); Sodium 135 mmol/L (135-145); Total Bilirubin 0.4 mg/dl (0.2-1.3); Total Protein 6.7 g/dl (6.3-8.2)
[2024-10-17] MEDS: NSS 500 IV (14:01)
--- NOTE | 2024-10-17 14:30 | CM ---
CM reviewed chart, spoke with nurse from [place], will be out to assess patient tomorrow for hopeful return to [place] with [facility] PT. Phone call to patients daughter, Ivana, left voicemail with update. CM will continue to follow for all discharge
planning needs.
Plan; nurse to assess patient for return to [facility] with [facility]
[2024-10-17 15:00] VITALS: BP 98/40
--- NOTE | 2024-10-17 17:01 | PTCARENOTE ---
Patient in and out of sleep throughout day shift. Patient somnolent and arousable to voice. Patient follows commands, oriented to self. patient ambulated with RW and x1 assist, free from falls. Patient tolerated eating diet and taking pills. call
ling in reach. safety maintained. MD Crook notified of patient's change of mental status from yesterday. will continue to monitor.
[2024-10-17 17:07] LABS: Glucose - Point of Care 108 mg/dl (70-99)
--- NOTE | 2024-10-17 17:53 | W.PN.UPDATE ---
Update Note
Progress Note Update
#Emphysematous cystitis
#B/L calyceal dilation, concern for urinary retention
with worsening Cr - Austin reasonable, also agreed with Urology
Urology consult
Bcx
Ucx
Ceftriaxone afterwards
[2024-10-17 18:48] LABS: Urine Albumin 3+ (Neg - Trace); Urine Bilirubin Negative (Negative); Urine Character Cloudy (Clear); Urine Color Yellow; Urine Glucose Negative (Negative); Urine Ketone Negative (Negative); Urine Leukocyte 3+ (Negative); Urine Nitrite Negative (Negative); Urine Occult Blood 4+ (Negative); Urine Urobilinogen Negative (Neg - 1+)
[2024-10-17 19:07] LABS: Urine Squamous Cell 0-2 /LPF (Few)
[2024-10-17 19:08] LABS: Urine Bacteria Many (Negative); Urine White Cell >100 /HPF (0-5)
[2024-10-17 19:46] VITALS: BP 123/62
[2024-10-17] MEDS: LIPITOR 40 MG PO (21:07)
[2024-10-17] MEDS: FLOMAX 0.4 MG PO (21:08)
--- NOTE | 2024-10-17 21:30 | W.PN.UPDATE ---
Update Note
Progress Note Update
Pharmacist advised to change antibiotics as patient has allergies to Ceftriaxone and confirmed with family. Will discontinue Ceftriaxone and add Levaquin, pharmacy to dose based on creat clearance. Daily EKG.
[2024-10-17] MEDS: LEVAQUIN 100 IV (21:42)
[2024-10-17 22:49] LABS: Glucose - Point of Care 162 mg/dl (70-99)
[2024-10-17 22:52] VITALS: BP 121/58
[2024-10-18 03:30] VITALS: BP 128/53
[2024-10-18] MEDS: SYNTHROID 88 MCG PO (05:05)
[2024-10-18 07:20] VITALS: BP 116/51
[2024-10-18 07:33] LABS: Glucose - Point of Care 124 mg/dl (70-99)
[2024-10-18] MEDS: NOVOLOG FLEXPEN-MODERATE RESISTANCE SC (07:37)
[2024-10-18] MEDS: DELTASONE 2.5 MG PO (07:55)
[2024-10-18] MEDS: ZOLOFT 75 MG PO (07:55)
[2024-10-18] MEDS: VITAMIN B1 100 MG PO (07:55)
[2024-10-18] MEDS: ASPIR LOW (ENTERIC COATED) 81 MG PO (07:55)
[2024-10-18] MEDS: PROTONIX 40 MG PO (07:55)
[2024-10-18] MEDS: TOPROL XL 25 MG PO (07:57)
--- NOTE | 2024-10-18 07:58 | CON.MD ---
Consultation - Medical
-
79M admitted w/ CVA.
CTAP w/o IV contrast => air in bladder w/ extension into left ureter and left renal collecting system w/ air-fluid levels, right pelvicalyceal dilation.
UA => >100 WBCs
UCx => pending
Prior UCx 02/2024 => E. Coli
Remote (?reported) history of partial right nephrectomy, BPH with LUTS.
Has not seen a urologist in last several years.
Resident at [facility].
Emphysematous cystitis and pyelitis
Right pelvicalyceal dilation
FLOYD
Urinary retention
- Austin catheter placed
- IV antibiotics pending UCx S/S
- Trend Cr
- Consider consider outpatient urodynamic testing and cystoscopy pending clinical course
- Given CVA and CT findings, would advise discharge w/ Austin catheter in place
D/w Hospitalist.
[2024-10-18 08:42] LABS: % Basophils 0.8 % (0-2); % Eosinophils 2.8 % (0-6); % Immature Granulocytes 0.3 % (0-0.5); % Lymphocytes 29.2 % (20.5-51.1); % Monocytes 8.8 % (1.7-9.3); % Neutrophils 58.1 % (42.2-75.2); Absolute Basophils 0.1 10^3/uL (0-0.2); Absolute Eosinophils 0.3 10^3/uL (0-0.7); Absolute Lymphocytes 3.3 10^3/uL (1.2-3.4); Absolute Neutrophils 6.6 10^3/uL (1.4-6.5); Hematocrit 35.5 % (39.0-52.0); Hemoglobin 11.6 g/dL (13.0-18.0); Mean Corp Hgb Conc. 32.7 g/dL (33.0-37.0); Mean Corpuscular Hgb 28.4 pg (27.0-31.0); Nucleated Red Blood Cells % 0 % (-); Platelet Count 442 10^3/uL (130-400); Red Blood Cell Count 4.08 10^6/uL (4.70-6.10); Red Cell Dist. Width 14.7 % (11.5-14.5); White Blood Cell Count 11.4 10^3/uL (4.8-10.8)
[2024-10-18 09:14] LABS: ALT (SGPT) 14 U/L (0-50); AST (SGOT) 21 U/L (17-59); Albumin 3.5 g/dl (3.5-5.0); Alkaline Phosphatase 112 U/L (38-126); Blood Urea Nitrogen 33 mg/dl (9-20); Calcium 9.1 mg/dl (8.4-10.2); Carbon Dioxide 21 mmol/L (22-30); Chloride 103 mmol/L (98-107); Estimated Creatinine Clearance 28 ml/min; Glucose 118 mg/dl (70-99); Potassium 4.5 mmol/L (3.5-5.1); Sodium 135 mmol/L (135-145); Total Bilirubin 0.4 mg/dl (0.2-1.3); eGFR 31.23
--- NOTE | 2024-10-18 10:15 | W.PN.HOSP.TC ---
Today's Communication/Plan
-
cont treatment for cystitis
Assessment / Plan
Assessment / Plan
79yo M with PMHX of hypothyroidism, DM, HTN, HLD, GERD, BPH brought from SNF with new dysphasia and aphasia, as well as RUE weakness and R fascial droop. Had TNK in ED and admitted to ICU for the monitoring. CTA head and neck showed L carotid
dissection and as per discussion with neurosurgery and vascular SX - discussed with [facility] neurology. As per discussion - no indication for transfer as no surgical management would be indicated. Furthermore - as per Feed Manager discussion with
family - they were not willing to consider transfer.
Patient eventually improved, but repeated CT showed Trace intraventricular hemorrhage within the occipital horns bilaterally, No midline shift or herniation., not worsened on repeated CT so neurology started ASA. Mentation and speech much improved,
but became more lethargic after MRI probably 2/ Ativan as repeated CT head showed small volume intraventricular hemorrhage in the occipital horns, not appreciably changed compared to the recent head CT from 10/15/2024
A/P:
#CVA/TIA
#L carotid dissection
#R carotid stenosis
#Trace intraventricular hemorrhage within the occipital horns bilaterally
Reviewed CT findings with neurologist. ASA to hold, since patient improving - follow up with repeated CT head as hemorrhage is minimal
Control BP
Antiplatelets as per neurologist
MRI head - 2mm stroke in L parietal lobe
Echo cancelled by neurologist - agree
Neurochecks
LDL 97 - switch to atorvastatin
Telemetry without clinically significant arrhythmia
Follow neurology reccs for carotid stenosis and dissection mgmt
#Emphysematous cystitis
#Hx of R partial nephrectomy
#R pelvicalcaneal dilation
#BPH with LUTS
Austin
Levaquin pending ID consult
Urology: outpatient urodynamic study, no TOV before DC
Bcx NTD
#DM type 2 with circulatory complications
Insulin SS, DM diet, Accuchecks
#Leukocytosis - resolved off Abx
#Thrombocytosis - improving
#Mild anemia
Chronic, recommend outpatient cruise director
#Dysphagia
2/2 recent CVA/TIA
DATA ANALYTICS ARCHITECT recommended dysphagia diet
#Hypothyroidism
TSH WNL
cont Synthroid
#CKD stage 3b
follow Cr, baseline 1.9-2.1
#PMR on prednisone
#RA
#Iatrogenic adrenal insufficiency
#BPH
Watch for urinary retention
cont home meds
DVT ppx SCDs (recent TNK)
DNR/DNI
I have spent at least 58min reviewing chart, test results, communication with consultants and providing direct patient care
Anticipated Discharge: 24 - 48 hours
Subjective/Interval History
-
Date of Service: October 18, 2024
Objective Data
-
Labs:
Laboratory Results
10/18/24
08:23
WBC 11.4 H
Hgb 11.6 L
Hct 35.5 L
Plt Count 442 H
Sodium 135
Potassium 4.5
Chloride 103
Carbon Dioxide 21 L
BUN 33 H
Creatinine 2.1 H
Glucose 118 H
Calcium 9.1
Total Bilirubin 0.4
AST 21
ALT 14
Alkaline Phosphatase 112
Vital Signs:
Vital Signs
Temp Pulse Resp BP Pulse Ox
98.3 F 72 18 116/51 98
10/18/24 07:20 10/18/24 07:57 10/18/24 07:20 10/18/24 07:57 10/18/24 07:20
I&O
10/17/24 10/18/24 10/19/24
06:59 06:59 06:59
Intake Total 0 / 0 480 / 480
Output Total 0 / 0 0 / 0
Balance 0 / 0 480 / 480
Review of Systems
-
Unable to obtain full review of systems at this time due to: Dementia
History Source: Patient
Physical Exam
-
General: No Apparent Distress
Respiratory: Clear to Auscultation
GI: Soft
Genito-urinary: Turbid Urine and Austin
Neuro: Awake and Alert
Psych: Calm
[2024-10-18 11:07] VITALS: BP 125/60
--- NOTE | 2024-10-18 11:46 | CM ---
CM reviewed chart, patient not stable for discharge at this time. Voicemail left for nurse Cami at [place] [phone], daughter Ivana. Patient will require script for outpatient PT when stable for discharge. CM will continue to follow for all
discharge planning needs.
Plan; [facility], outpatient [facility]
[2024-10-18 11:57] LABS: Glucose - Point of Care 185 mg/dl (70-99)
[2024-10-18] MEDS: NOVOLOG FLEXPEN-MODERATE RESISTANCE 1 UNITS SC ×2 (13:05→17:05)
--- NOTE | 2024-10-18 14:06 | CON.ID ---
Consultation
-
Date/Time Consultation Requested: 10/18/24 7:16
Date/Time Consultation Performed: 10/18/24 14:0y7
Requesting Provider: Dr Crook
Performing Provider: Dr Obando
Reason for Consultation: emphysematous cystitis
Chief Complaint / Past History
Chief Complaint
altered mental status, R facial droop, RUE weakness
History of Present Illness
Mr Cruz is an 79 year old male with history of RA/PMR on prednisone 2.5 mg po qday, CHF, bladder fistula surgery and partial R nephrectomy, dementia who presented here on 10/13 for word finding difficulties, R facial droop. Note a recent fall
10/11/24 - fell and hit the back of his head. No berrios present on arrival.
Spoke with patient today and he is able to give some fluid history. He states he recalls the episode with penicillin as boy and that he was taken to the hospital because he 'collapsed.' He additionally does report dysuria of several days duration
this hospitalization.
In the ER, BP 148/62, pulse 90, respiratory rate 22 and saturating 98%. Initial labs showed WBC 13.9, Hb 12.1, platelet count 543, INR 0.98, creatinine 2.0 from baseline of 2.0, serum bicarbonate level 18, glucose 175, and troponin negative at
<0.012. CT head showed no acute intracranial abnormality, and CTA head/neck showed a left ICA dissection beginning at the mid cervical portion of the left ICA at the cervical to level and extending contiguously through the distal petrous portion of
the left ICA. Also 70% stenosis of the right ICA. TNK administered by neurology 10/13, admitted to the ICU. CTA head and neck reviewed by vascular surgeon Dr Berrois who recommended transfer to tertiary care center however family refused as the
believe patient wouldnt want invasive management. Repeat CT head 10/15 showed trace intraventricualr hemorrhage - new, repeat at 6 hours showed improved. Yesterday 10/17 discharge planning was underway however CT a/p was done for FLOYD and found 'air
present within the bladder with an air-fluid level. Air extending throughout the left ureter and into the left renal pelvis and calyces with air-fluid level in the left renal pelvis and calyces. These findings suggest the possibility of
emphysematous cystitis and pyelitis. Dilation of the right ureter and pelvicalyceal systems, new since prior examination, but no evidence for air on the right.' a UA was done showing >100 wbc/hpf and many bacteria, urine culture has grown 100K
presumptive E coli, blood culture x2, straight cath ordered to obtain the ua and berrios placed after the CT resulted, ID is consultd for assistance with management.
Past History
Additional Past Medical History:
Chronic constipation, chronic pain syndrome, GERD, history of ruptured diverticulitis with colectomy/colostomy, ED, history of subdural hematoma s/p ghanshyam hole evacuation, osteoarthritis, PMR, hyperlipidemia, hypertension, hypogonadism, BPH, DM type
II, rotator cuff tear s/p arthroscopy, history of TBI, depression, adrenal insufficiency, diverticulosis, JUAN JOSE, RA, CKD, neuropathy, hypothyroidism, secondary hyperparathyroidism, CAD, osteopenia, history of alcohol abuse, seizures, history of SAH,
history of stroke, history of MRSA, dementia
Additional Past Surgical History:
SDH s/p ghanshyam hole
Cataract extraction, appendectomy, colectomy, colostomy and reversal with repair of e-v fistula, subdural hematoma (2012), fifth metatarsal surgery with hardware, bladder fistula surgery, carpal tunnel release (left), right femur ORIF, cardiac
catheterization and robotic IPOM repair multiple incisional hernias/ALYSSA
Allergy History:
diflunisal Allergy (Verified 06/19/22 12:39)
WIGGINS JOHNSONS SYNDROME
penicillin V Allergy (Verified 06/19/22 12:39)
Anaphylaxis
pentazocine Allergy (Verified 06/19/22 12:39)
DIFFICULTY BREATHING, HALLUCINATIONS
tramadol HCl [From Ultram] Allergy (Verified 06/19/22 12:39)
HALLUCINATIONS
Medications Reviewed: Yes
Social History
Tobacco: Non-Smoker
Alcohol: Occasional
Drug: None
Family History
Family History: Not Pertinent
Review of Systems
Review of Systems
General: Negative Fever or Chills
All systems: All other systems were reviewed and were negative
Vital Signs
Temp Pulse Resp BP Pulse Ox
97.5 F 72 18 125/60 98
10/18/24 11:07 10/18/24 11:07 10/18/24 11:07 10/18/24 11:07 10/18/24 07:20
Physical Exam
Physical Exam
Constitutional: No Acute Distress
Cardiovascular: Regular Rate and S1/S2; Negative Murmur or Rub
Pulmonary: Clear and Symmetric; Negative Wheezes, Rales or Rhonchi
Gastrointestinal: Soft, Non Tender, Non Distended and Normal Bowel Sounds
Skin: Warm and Dry; Negative Rash or Jaundice
Lab / Diagnostic Study Results
10/18/24 08:23
10/18/24 08:23
Abs Immat Gran (auto) 0.0 10^3/uL (0-0.05) 10/18/24 08:23
Absolute Neuts (auto) 6.6 10^3/uL (1.4-6.5) H 10/18/24 08:23
Absolute Lymphs (auto) 3.3 10^3/uL (1.2-3.4) 10/18/24 08:23
Absolute Monos (auto) 1.0 10^3/uL (0.1-0.6) H 10/18/24 08:23
Absolute Basos (auto) 0.1 10^3/uL (0-0.2) 10/18/24 08:23
Immature Gran % 0.3 % (0-0.5) 10/18/24 08:23
Neutrophils % 58.1 % (42.2-75.2) 10/18/24 08:23
Lymphocytes % 29.2 % (20.5-51.1) 03/21/25 08:23
Monocytes % 8.8 % (1.7-9.3) 10/18/24 08:23
Eosinophils % 2.8 % (0-6) 10/18/24 08:23
Basophils % 0.8 % (0-2) 10/18/24 08:23
PT Cancelled 10/15/24 10:06
INR Cancelled 10/15/24 10:06
Ur Squamous Epith Cells 0-2 /LPF (Few) 10/17/24 18:35
Microbiology Results
Micro:
10/17/24 18:35 Urine Culture - Preliminary
Urine Escherichia coli 100K
10/18/24 09:43 Blood Culture - Pending
Blood/Venous
10/18/24 08:23 Blood Culture - Pending
Blood/Venous
Assessment / Plan
Emphysematous Cystitis
Remote (?reported) history of partial right nephrectomy, BPH with LUTS.
Allergy to penicillin - anaphylaxis
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
- urine culture has grown 100K presumptive E coli
- CT with air within the bladder and L ureter
- no berrios or straight cath ordered this admission until immediately before and after the CT scan
- berrios management per urology
- note reported history of anaphylaxis to penicillin, no history of MDRO colonization
- start meropenem for now given local resistance patterns of E coli and h/o anaphylaxis to penicillin - deescalate if/when feasible
- c/w levaquin pending sensitivities
[2024-10-18] MEDS: MERREM 500 MG IV (15:17)
[2024-10-18] MEDS: STERILE WATER FOR INJECTION 10 ML IV (15:18)
[2024-10-18 15:30] VITALS: BP 111/58
--- NOTE | 2024-10-18 16:00 | W.PN.URO.CBU ---
Today's Communication / Plan
-
IV antibiotic therapy per ID
Maintain Austin catheter
Outpatient voiding trial (will be coordinated w/ NH)
F/U as outpatient - plan for office cystoscopy
D/w patient.
D/w Hospitalist.
Assessment / Plan
-
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
Urinary retention
FLOYD
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
CT imaging => air-fluid levels in bladder and left kidney, moderate right pelvicalyceal dilation
Cr downtrending after catheter placement
Diagnosis
-
Date of Service: October 19, 2024
-
Patient Diagnosis:
Emphysematous cystitis and left pyelonephritis
Urinary retention
FLOYD
Subjective
-
Urine cloudy yellow in tubing.
Denies penile/suprapubic pain.
Objective
-
Vital Signs
Temp Pulse Resp BP Pulse Ox
98.2 F 72 18 129/62 95
10/19/24 03:23 10/19/24 03:23 10/19/24 03:23 10/19/24 03:23 10/19/24 03:23
Intake and Output
10/18/24 10/19/24 10/20/24
06:59 06:59 06:59
Intake Total 480 / 480 360 / 360
Output Total 0 / 0 2099
Balance 480 / 480 -1740 / -1740
Intake:
Oral fluids 480 / 480 360 / 360
Output:
Urine, Austin 2099
Urine, Voided 0 / 0
Other:
Number of approximated SMALL 1
amounts of urine
How many times incontinent 1
SMALL amount urine
How many times incontinent 2
MODERATE amount urine
How many times incontinent 1
SATURATED amount urine
Laboratory Results
10/18/24 08:23
10/18/24 08:23
Physical Exam
-
General - no acute distress
Abdomen - soft, non-tender, non-distended
- Austin catheter w/ cloudy yellow UOP
Skin - warm & dry with no rash
[2024-10-18 16:58] LABS: Glucose - Point of Care 165 mg/dl (70-99)
[2024-10-18 19:46] VITALS: BP 126/63
[2024-10-18 21:57] LABS: Glucose - Point of Care 106 mg/dl (70-99)
[2024-10-18] MEDS: FLOMAX 0.4 MG PO (22:28)
[2024-10-18] MEDS: LIPITOR 40 MG PO (22:28)
[2024-10-18] MEDS: LEVAQUIN 50 IV (22:28)
[2024-10-18] MEDS: FLUSH (NSS) 2 FLUSH IV (22:30)
[2024-10-18 22:57] VITALS: BP 138/67
[2024-10-19] MEDS: MERREM 500 MG IV ×3 (00:07→16:27)
[2024-10-19] MEDS: STERILE WATER FOR INJECTION 10 ML IV ×3 (00:07→16:28)
[2024-10-19 03:23] VITALS: BP 129/62
[2024-10-19] MEDS: SYNTHROID 88 MCG PO (05:49)
[2024-10-19 07:47] VITALS: BP 119/63
[2024-10-19] MEDS: ZOLOFT 75 MG PO (07:57)
[2024-10-19] MEDS: PROTONIX 40 MG PO (07:57)
[2024-10-19] MEDS: TOPROL XL 25 MG PO (07:57)
[2024-10-19] MEDS: VITAMIN B1 100 MG PO (07:59)
[2024-10-19] MEDS: ASPIR LOW (ENTERIC COATED) 81 MG PO (07:59)
[2024-10-19] MEDS: DELTASONE 2.5 MG PO (07:59)
[2024-10-19] MEDS: FLUSH (NSS) 1 FLUSH IV (08:01)
[2024-10-19 08:20] LABS: Glucose - Point of Care 127 mg/dl (70-99)
[2024-10-19] MEDS: NOVOLOG FLEXPEN-MODERATE RESISTANCE SC (09:56)
--- NOTE | 2024-10-19 10:34 | W.PN.HOSP.TC ---
Today's Communication/Plan
-
As per Ucx - Levaquin stopped, pending final ID reccomendations
Assessment / Plan
Assessment / Plan
79yo M with PMHX of hypothyroidism, DM, HTN, HLD, GERD, BPH brought from SNF with new dysphasia and aphasia, as well as RUE weakness and R fascial droop. Had TNK in ED and admitted to ICU for the monitoring. CTA head and neck showed L carotid
dissection and as per discussion with neurosurgery and vascular SX - discussed with [facility] neurology. As per discussion - no indication for transfer as no surgical management would be indicated. Furthermore - as per Regional Service Manager discussion with
family - they were not willing to consider transfer.
Patient eventually improved, but repeated CT showed Trace intraventricular hemorrhage within the occipital horns bilaterally, No midline shift or herniation., not worsened on repeated CT so neurology started ASA. Mentation and speech much improved,
but became more lethargic after MRI probably 09/01 [facility] as repeated CT head showed small volume intraventricular hemorrhage in the occipital horns, not appreciably changed compared to the recent head CT from 10/15/2024
A/P:
#CVA/TIA
#L carotid dissection
#R carotid stenosis
#Trace intraventricular hemorrhage within the occipital horns bilaterally
Reviewed CT findings with neurologist. ASA to hold, since patient improving - follow up with repeated CT head as hemorrhage is minimal
Control BP
Antiplatelets as per neurologist
MRI head - 2mm stroke in L parietal lobe
Echo cancelled by neurologist - agree
Neurochecks
LDL 97 - switch to atorvastatin
Telemetry without clinically significant arrhythmia
Follow neurology reccs for carotid stenosis and dissection mgmt
#Emphysematous cystitis
#Hx of R partial nephrectomy
#R pelvicaliceal dilation
#BPH with LUTS
[place]
Ucx - fluoroquinolone resistant E.coli, cont Merrem, pending final reccs by ID
Urology: outpatient urodynamic study, no TOV before DC
Bcx NTD
#DM type 2 with circulatory complications
Insulin SS, DM diet, Accuchecks
#Leukocytosis - resolved off Abx
#Thrombocytosis - improving
#Mild anemia
Chronic, recommend outpatient electronic train control technician
#Dysphagia
2/2 recent CVA/TIA
AIRPLANE REFUELER recommended dysphagia diet
#Hypothyroidism
TSH WNL
cont Synthroid
#CKD stage 3b
follow Cr, baseline 1.9-2.1
#PMR on prednisone
#RA
#Iatrogenic adrenal insufficiency
#BPH
Watch for urinary retention
cont home meds
DVT ppx SCDs (recent TNK)
DNR/DNI
I have spent at least 58min reviewing chart, test results, communication with consultants and providing direct patient care
Anticipated Discharge: Within 24 hours
Subjective/Interval History
-
Date of Service: October 19, 2024
Objective Data
-
Vital Signs:
Vital Signs
Temp Pulse Resp BP Pulse Ox
98.1 F 72 18 119/63 96
10/19/24 07:47 10/19/24 07:47 10/19/24 07:47 10/19/24 07:47 10/19/24 07:47
I&O
10/18/24 10/19/24 10/20/24
06:59 06:59 06:59
Intake Total 480 / 480 360 / 360
Output Total 0 / 0 2099 / 2099
Balance 480 / 480 -1740 / -1740
[2024-10-19 10:59] LABS: % Basophils 0.6 % (0-2); % Eosinophils 1.2 % (0-6); % Immature Granulocytes 0.4 % (0-0.5); % Lymphocytes 12.4 % (20.5-51.1); % Monocytes 5.6 % (1.7-9.3); % Neutrophils 79.8 % (42.2-75.2); Absolute Basophils 0.1 10^3/uL (0-0.2); Absolute Eosinophils 0.2 10^3/uL (0-0.7); Absolute Immature Granulocytes 0.1 10^3/uL (0-0.05); Absolute Lymphocytes 1.7 10^3/uL (1.2-3.4); Absolute Monocytes 0.8 10^3/uL (0.1-0.6); Hematocrit 39.6 % (39.0-52.0); Mean Corp Hgb Conc. 32.8 g/dL (33.0-37.0); Mean Corpuscular Hgb 28.8 pg (27.0-31.0); Mean Corpuscular Volume 87.6 fL (80.0-94.0); Nucleated Red Blood Cells % 0 % (-); Platelet Count 422 10^3/uL (130-400); Red Blood Cell Count 4.52 10^6/uL (4.70-6.10); Red Cell Dist. Width 14.8 % (11.5-14.5); White Blood Cell Count 13.8 10^3/uL (4.8-10.8)
[2024-10-19 11:12] LABS: Blood Urea Nitrogen 34 mg/dl (9-20); Calcium 9.1 mg/dl (8.4-10.2); Carbon Dioxide 21 mmol/L (22-30); Chloride 103 mmol/L (98-107); Estimated Creatinine Clearance 28 ml/min; Glucose 248 mg/dl (70-99); Potassium 4.2 mmol/L (3.5-5.1); Sodium 136 mmol/L (135-145); eGFR 31.23
[2024-10-19 11:58] VITALS: BP 139/63
[2024-10-19 12:08] LABS: Glucose - Point of Care 211 mg/dl (70-99)
[2024-10-19] MEDS: NOVOLOG FLEXPEN-MODERATE RESISTANCE 3 UNITS SC (12:53)
[2024-10-19 15:20] VITALS: BP 132/64
[2024-10-19] MEDS: NOVOLOG FLEXPEN-MODERATE RESISTANCE 1 UNITS SC (16:30)
[2024-10-19 16:31] LABS: Glucose - Point of Care 159 mg/dl (70-99)
[2024-10-19 19:45] VITALS: BP 130/66
[2024-10-19] MEDS: FLOMAX 0.4 MG PO (20:47)
[2024-10-19] MEDS: LIPITOR 40 MG PO (20:47)
[2024-10-19 21:36] LABS: Glucose - Point of Care 163 mg/dl (70-99)
[2024-10-19 23:02] VITALS: BP 132/59
[2024-10-20] VITALS (7 sets, daily range): BP systolic 123–142; BP diastolic 62–76; PULSE 74; O2SAT 98
[2024-10-20] MEDS: MERREM 500 MG IV ×2 (00:23→10:05)
[2024-10-20] MEDS: STERILE WATER FOR INJECTION 10 ML IV ×3 (00:24→12:18)
[2024-10-20] MEDS: SYNTHROID PO (05:17)
[2024-10-20] MEDS: SYNTHROID 88 MCG PO (07:08)
[2024-10-20 07:39] LABS: Glucose - Point of Care 132 mg/dl (70-99)
[2024-10-20] MEDS: NOVOLOG FLEXPEN-MODERATE RESISTANCE SC ×2 (09:52→18:00)
[2024-10-20] MEDS: ZOLOFT 75 MG PO (10:03)
[2024-10-20] MEDS: TOPROL XL 25 MG PO (10:03)
[2024-10-20] MEDS: DELTASONE 2.5 MG PO (10:03)
[2024-10-20] MEDS: VITAMIN B1 100 MG PO (10:03)
[2024-10-20] MEDS: PROTONIX 40 MG PO (10:03)
[2024-10-20] MEDS: FLUSH (NSS) 2 FLUSH IV ×2 (10:06→12:20)
[2024-10-20] MEDS: ASPIR LOW (ENTERIC COATED) 81 MG PO (10:09)
--- NOTE | 2024-10-20 10:14 | W.PN.HOSP.TC ---
Today's Communication/Plan
-
cont Abx
Assessment / Plan
Assessment / Plan
79yo M with PMHX of hypothyroidism, DM, HTN, HLD, GERD, BPH brought from SNF with new dysphasia and aphasia, as well as RUE weakness and R fascial droop. Had TNK in ED and admitted to ICU for the monitoring. CTA head and neck showed L carotid
dissection and as per discussion with neurosurgery and vascular SX - discussed with [facility] neurology. As per discussion - no indication for transfer as no surgical management would be indicated. Furthermore - as per Business Segment Manager discussion with
family - they were not willing to consider transfer.
Patient eventually improved, but repeated CT showed Trace intraventricular hemorrhage within the occipital horns bilaterally, No midline shift or herniation., not worsened on repeated CT so neurology started ASA. Mentation and speech much improved,
but became more lethargic after [facility] CT head showed small volume intraventricular hemorrhage in the occipital horns, not appreciably changed compared to the recent head CT from 10/15/2024
A/P:
#CVA/TIA
#L carotid dissection
#R carotid stenosis
#Trace intraventricular hemorrhage within the occipital horns bilaterally
Reviewed CT findings with neurologist. ASA to hold, since patient improving - follow up with repeated CT head as hemorrhage is minimal
Control BP
Antiplatelets as per neurologist
MRI head - 2mm stroke in L parietal lobe
Echo cancelled by neurologist - agree
Neurochecks
LDL 97 - switch to atorvastatin
Telemetry without clinically significant arrhythmia
Follow neurology reccs for carotid stenosis and dissection mgmt
#Emphysematous cystitis
#Hx of R partial nephrectomy
#R pelvicaliceal dilation
#BPH with LUTS
[place]
Ucx - fluoroquinolone resistant E.coli, cont Merrem, pending final reccs by ID
Urology: outpatient urodynamic study, no TOV before DC
Bcx NTD
#DM type 2 with circulatory complications
Insulin SS, DM diet, Accuchecks
#Leukocytosis - resolved off Abx
#Thrombocytosis - improving
#Mild anemia
Chronic, recommend outpatient writing tutor
#Dysphagia
2/2 recent CVA/TIA
ELECTRIC METER READER recommended dysphagia diet
#Hypothyroidism
TSH WNL
cont Synthroid
#CKD stage 3b
follow Cr, baseline 1.9-2.1
#PMR on prednisone
#RA
#Iatrogenic adrenal insufficiency
#BPH
Watch for urinary retention
cont home meds
DVT ppx SCDs (recent TNK)
DNR/DNI
I have spent at least 58min reviewing chart, test results, communication with consultants and providing direct patient care
Anticipated Discharge: 24 - 48 hours
Subjective/Interval History
-
Date of Service: October 20, 2024
Objective Data
-
Vital Signs:
Vital Signs
Temp Pulse Resp BP Pulse Ox
97.4 F 69 16 131/76 96
10/20/24 07:00 10/20/24 07:00 10/20/24 07:00 10/20/24 07:00 10/20/24 07:00
I&O
10/19/24 10/20/24 10/21/24
06:59 06:59 06:59
Intake Total 360 / 360 256 / 256
Output Total 2100 / 2100 1275 / 1275
Balance -1740 / -1740 -1019 / -1019
Review of Systems
-
History Source: Patient
All other systems: Reviewed and negative
Physical Exam
-
General: No Apparent Distress
HEENT: Normocephalic
Respiratory: Clear to Auscultation
Skin: Warm
Neuro: Awake, Alert, Oriented and AO x 3
Psych: Calm
--- NOTE | 2024-10-20 12:00 | W.PN.ID1 ---
Date of Service
Date of Service: October 20, 2024
Today's Communication
Discontinue meropenem. Begin ceftriaxone.
Assessment / Plan
Emphysematous Cystitis
Remote (?reported) history of partial right nephrectomy, BPH with LUTS.
Allergy to penicillin - reported 'anaphylaxis' as a child
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
- urine culture has grown 100K E. coli
- CT with air within the bladder and L ureter
- no berrios or straight cath ordered this admission until immediately before and after the CT scan
- berrios management per urology
- note reported history of 'anaphylaxis' to penicillin. Review of records indicate that the patient has tolerated and 2008.
Transition to ceftriaxone 1 g IV every 24 hours. If tolerates, can transition to oral cefdinir for discharge.
Chief Complaint
-: UTI
Subjective / Review of Systems
Review of Systems: No Fever and No Chills
Vital Signs / Physical Exam
Vital Signs
Vital Signs
Temp Pulse Resp BP Pulse Ox
97.5 F 69 18 126/62 100
10/20/24 11:01 10/20/24 11:01 10/20/24 11:01 10/20/24 11:01 10/20/24 11:01
Physical Exam
Constitutional: Chronically Ill and Non-toxic
Cardiovascular: S1/S2; Negative S3/S4
Pulmonary: Non Labored
Gastrointestinal: Soft and Non Tender
Neurological: Awake
Psychological: Calm
Objective Data
Lab Data
Lab Results
10/19/24 10:49
10/19/24 10:49
PT Cancelled 10/15/24 10:06
INR Cancelled 10/15/24 10:06
APTT Cancelled 10/15/24 10:06
Estimated Creat Clear 28 ml/min 10/19/24 10:49
Total Bilirubin 0.4 mg/dl (0.2-1.3) 10/18/24 08:23
AST 21 U/L (17-59) 10/18/24 08:23
ALT 14 U/L (0-50) 10/18/24 08:23
Alkaline Phosphatase 112 U/L (38-126) 10/18/24 08:23
Most recent labs reviewed.
Micro Results:
10/18/24 09:43 Blood Culture - Preliminary
Blood/Venous No Growth in 48 hours- Final report to follow
10/18/24 08:23 Blood Culture - Preliminary
Blood/Venous No Growth in 48 hours- Final report to follow
10/17/24 18:35 Urine Culture - Final
Urine Escherichia coli
Urine Culture Final 10/17/24-1835
CC: Greater than 100,000 CFU/ML Escherichia coli
Organism 1 Escherichia coli
1. Escherichia coli
M.I.C. RX
--------- ---
Amoxicillin/Potas. Clavulanate <=8/4 S
Ampicillin <=8 S
Ampicillin/Sulbactam <=4/2 S
Aztreonam <=4 S
Cefazolin <=2 S
Ertapenem <=0.5 S
Ciprofloxacin >2 R
Gentamicin <=2 S
Meropenem <=1 S
Nitrofurantoin-Urine Only <=32 S
Piperacillin/Tazobactam <=8 S
Tetracycline <=4 S
Tobramycin <=2 S
Trimethoprim/Sulfamethoxazole <=2/38 S
[2024-10-20] MEDS: ROCEPHIN 1000 MG IV (12:17)
[2024-10-20 12:49] LABS: Glucose - Point of Care 238 mg/dl (70-99)
[2024-10-20] MEDS: NOVOLOG FLEXPEN-MODERATE RESISTANCE 3 UNITS SC (13:37)
--- NOTE | 2024-10-20 14:08 | CM ---
CM received a call from Romy @ [facility] to let CM know that [facility] will resume services when patient returns to [facility]
[2024-10-20 17:12] LABS: Glucose - Point of Care 142 mg/dl (70-99)
[2024-10-20] MEDS: LIPITOR 40 MG PO (20:41)
[2024-10-20] MEDS: FLOMAX 0.4 MG PO (20:41)
[2024-10-20 22:07] LABS: Glucose - Point of Care 172 mg/dl (70-99)
[2024-10-21 03:14] VITALS: BP 139/72
[2024-10-21] MEDS: SYNTHROID 88 MCG PO (06:46)
[2024-10-21 07:00] VITALS: BP 114/56
[2024-10-21 07:08] LABS: Glucose - Point of Care 123 mg/dl (70-99)
[2024-10-21] MEDS: NOVOLOG FLEXPEN-MODERATE RESISTANCE SC (08:40)
[2024-10-21] MEDS: ASPIR LOW (ENTERIC COATED) 81 MG PO (09:04)
[2024-10-21] MEDS: PROTONIX 40 MG PO (09:05)
[2024-10-21] MEDS: DELTASONE 2.5 MG PO (09:05)
[2024-10-21] MEDS: TOPROL XL 25 MG PO (09:05)
[2024-10-21] MEDS: VITAMIN B1 100 MG PO (09:05)
[2024-10-21] MEDS: ZOLOFT 75 MG PO (09:06)
--- NOTE | 2024-10-21 10:06 | W.PN.HOSP.TC ---
Today's Communication/Plan
-
medically stable for d/c
Assessment / Plan
Assessment / Plan
79yo M with PMHX of hypothyroidism, DM, HTN, HLD, GERD, BPH brought from SNF with new dysphasia and aphasia, as well as RUE weakness and R fascial droop. Had TNK in ED and admitted to ICU for the monitoring. CTA head and neck showed L carotid
dissection and as per discussion with neurosurgery and vascular SX - discussed with [facility] neurology. As per discussion - no indication for transfer as no surgical management would be indicated. Furthermore - as per Behavioral Psychologist discussion with
family - they were not willing to consider transfer.
Patient eventually improved, but repeated CT showed Trace intraventricular hemorrhage within the occipital horns bilaterally, No midline shift or herniation., not worsened on repeated CT so neurology started ASA. Mentation and speech much improved,
but became more lethargic after MRI probably 09/[address] head showed small volume intraventricular hemorrhage in the occipital horns, not appreciably changed compared to the recent head CT from 10/15/2024. Treated for E.coli UTI and as
per ID consult - medically stable for d/c on oral cefdinir as patient tolerated Fortraz before.
As per discussion with family - they ant to keep non-invasive approach in management of their father and would not want any procedures that can cause significant distress for him
Medically stable for d/c to rehab
A/P:
#CVA/TIA
#L carotid dissection
#R carotid stenosis
#Trace intraventricular hemorrhage within the occipital horns bilaterally
Reviewed CT findings with neurologist. ASA to hold, since patient improving - follow up with repeated CT head as hemorrhage is minimal
Control BP
Antiplatelets as per neurologist
MRI head - 2mm stroke in L parietal lobe
Echo cancelled by neurologist - agree
Neurochecks
LDL 97 - switch to atorvastatin
Telemetry without clinically significant arrhythmia
Follow neurology reccs for carotid stenosis and dissection mgmt
#Emphysematous cystitis
#Hx of R partial nephrectomy
#R pelvicaliceal dilation
#BPH with LUTS
[place]
Ucx - fluoroquinolone resistant E.coli, cont Merrem, pending final reccs by ID
Urology: outpatient urodynamic study, no TOV before DC
Bcx NTD
#DM type 2 with circulatory complications
Insulin SS, DM diet, Accuchecks
#Leukocytosis - resolved off Abx
#Thrombocytosis - improving
#Mild anemia
Chronic, recommend outpatient tonnage compilation clerk
#Dysphagia
2/2 recent CVA/TIA
FUNDING COORDINATOR recommended dysphagia diet
#Hypothyroidism
TSH WNL
cont Synthroid
#CKD stage 3b
follow Cr, baseline 1.9-2.1
#PMR on prednisone
#RA
#Iatrogenic adrenal insufficiency
#BPH
Watch for urinary retention
cont home meds
DVT ppx SCDs (recent TNK)
DNR/DNI
I have spent at least 38min reviewing chart, test results, communication with consultants and providing direct patient care
Anticipated Discharge: Within 24 hours
Subjective/Interval History
-
Date of Service: October 21, 2024
Objective Data
-
Vital Signs:
Vital Signs
Temp Pulse Resp BP Pulse Ox
97.3 F 78 16 114/56 98
10/21/24 07:00 10/21/24 09:05 10/21/24 07:00 10/21/24 09:05 10/21/24 07:00
I&O
10/20/24 10/21/24 10/22/24
06:59 06:59 06:59
Intake Total 256 / 256 880 / 880
Output Total 1275 / 1275 1075 / 1075
Balance -1019 / -1019 -195 / -195
Review of Systems
-
Unable to obtain full review of systems at this time due to: Dementia
History Source: Patient
All other systems: Reviewed and negative
Physical Exam
-
General: No Apparent Distress
HEENT: Normocephalic
Cardiac: Regular Rhythm
GI: Soft, Nontender and Nondistended
Skin: Warm
Neuro: Awake and Alert
Psych: Calm and Apparent Dementia
[2024-10-21 10:25] VITALS: BP 118/55; PULSE 71; O2SAT 99
--- NOTE | 2024-10-21 10:43 | CM ---
Addendum entered by Cleo Braden 10/21/24 12:34:
CM received call from nurse Almanza from [facility], requesting clinicals to be faxed to review if able to accept patient back- faxed to [phone].
Original Note:
CM reviewed chart, patient medically stable for discharge. Phone call to patients nurse, Cami, at [facility], left voicemail for return call- need to review patients PT evals with nurse to confirm [facility] can accept patient back with [facility], rather than SNF. CM spoke with patients daughter, Ivana, to provide update, aware recommendation of SNF, family would prefer patient return to [facility]. CM will continue to follow for all discharge planning needs.
Plan; await return call from nurse regarding ability to accept patient at [facility] with VN/PT versus SNF
[2024-10-21 11:00] VITALS: BP 122/57
[2024-10-21 11:43] LABS: Glucose - Point of Care 219 mg/dl (70-99)
[2024-10-21] MEDS: NOVOLOG FLEXPEN-MODERATE RESISTANCE 3 UNITS SC (13:35)
[2024-10-21 15:00] VITALS: BP 135/73
[2024-10-21 15:55] LABS: Glucose - Point of Care 190 mg/dl (70-99)
--- NOTE | 2024-10-21 16:54 | W.PN.ID1 ---
Date of Service
Date of Service: October 21, 2024
Today's Communication
Transition to cefdinir 300mg po daily through 11/02/2024.
Assessment / Plan
Emphysematous Cystitis
Remote (?reported) history of partial right nephrectomy, BPH with LUTS.
Allergy to penicillin - reported 'anaphylaxis' as a child
H/o of seizure though not on antiepileptics HOME HEALTH CLINICAL LIAISON
- urine culture has grown 100K E. coli
- CT with air within the bladder and L ureter
- no berrios or straight cath ordered this admission until immediately before and after the CT scan
- berrios management per urology
- note reported history of 'anaphylaxis' to penicillin. Review of records indicate that the patient has tolerated Fortaz in 2008.
- pt tolerated ceftriaxone
transition to cefdinir 300mg po daily (renally adjusted) through 11/02/2024.
Chief Complaint
-: UTI
Subjective / Review of Systems
Tolerating current abx.
Vital Signs / Physical Exam
Vital Signs
Vital Signs
Temp Pulse Resp BP Pulse Ox
97.8 F 69 16 135/73 99
10/21/24 16:19 10/21/24 15:00 10/21/24 15:00 10/21/24 15:00 10/21/24 15:00
Physical Exam
Constitutional: No Acute Distress
Cardiovascular: Regular Rate and S1/S2
Pulmonary: Clear
Gastrointestinal: Soft, Non Tender and Non Distended
Genito-Urinary: Negative CVA Tenderness
Neurological: AO x 3
Objective Data
Lab Data
Lab Results
10/19/24 10:49
10/19/24 10:49
PT Cancelled 10/15/24 10:06
INR Cancelled 10/15/24 10:06
APTT Cancelled 10/15/24 10:06
Estimated Creat Clear 28 ml/min 10/19/24 10:49
Total Bilirubin 0.4 mg/dl (0.2-1.3) 10/18/24 08:23
AST 21 U/L (17-59) 10/18/24 08:23
ALT 14 U/L (0-50) 10/18/24 08:23
Alkaline Phosphatase 112 U/L (38-126) 10/18/24 08:23
Most recent labs reviewed.
Micro Results:
10/18/24 09:43 Blood Culture - Preliminary
Blood/Venous No Growth in 72 hours- Final report to follow
10/18/24 08:23 Blood Culture - Preliminary
Blood/Venous No Growth in 72 hours- Final report to follow
10/17/24 18:35 Urine Culture - Final
Urine Escherichia coli
Urine Culture Final 10/17/24-1834
CC: Greater than 100,000 CFU/ML Escherichia coli
Organism 1 Escherichia coli
1. Escherichia coli
M.I.C. RX
--------- ---
Amoxicillin/Potas. Clavulanate <=8/4 S
Ampicillin <=8 S
Ampicillin/Sulbactam <=4/2 S
Aztreonam <=4 S
Cefazolin <=2 S
Ertapenem <=0.5 S
Ciprofloxacin >2 R
Gentamicin <=2 S
Meropenem <=1 S
Nitrofurantoin-Urine Only <=32 S
Piperacillin/Tazobactam <=8 S
Tetracycline <=4 S
Tobramycin <=2 S
Trimethoprim/Sulfamethoxazole <=2/38 S
[2024-10-21] MEDS: OMNICEF 300 MG PO (18:06)
[2024-10-21] MEDS: NOVOLOG FLEXPEN-MODERATE RESISTANCE 1 UNITS SC (18:06)
[2024-10-21 22:10] LABS: Glucose - Point of Care 144 mg/dl (70-99)
[2024-10-21] MEDS: LIPITOR 40 MG PO (22:13)
[2024-10-21] MEDS: FLOMAX 0.4 MG PO (22:13)
[2024-10-21 23:00] VITALS: BP 136/66
[2024-10-22] MEDS: SYNTHROID 88 MCG PO (06:07)
[2024-10-22 07:00] VITALS: BP 123/68
[2024-10-22 07:09] LABS: Glucose - Point of Care 121 mg/dl (70-99)
[2024-10-22] MEDS: NOVOLOG FLEXPEN-MODERATE RESISTANCE SC (08:15)
[2024-10-22] MEDS: TOPROL XL 25 MG PO (08:16)
[2024-10-22] MEDS: DELTASONE 2.5 MG PO (08:16)
[2024-10-22] MEDS: PROTONIX 40 MG PO (08:16)
[2024-10-22] MEDS: ASPIR LOW (ENTERIC COATED) 81 MG PO (08:16)
[2024-10-22] MEDS: ZOLOFT 75 MG PO (08:16)
[2024-10-22] MEDS: VITAMIN B1 100 MG PO (08:17)
--- NOTE | 2024-10-22 09:45 | W.PN.HOSP.TC ---
Today's Communication/Plan
-
dc
Assessment / Plan
Assessment / Plan
79yo M with PMHX of hypothyroidism, DM, HTN, HLD, GERD, BPH brought from SNF with new dysphasia and aphasia, as well as RUE weakness and R fascial droop. Had TNK in ED and admitted to ICU for the monitoring. CTA head and neck showed L carotid
dissection and as per discussion with neurosurgery and vascular SX - discussed with [facility] neurology. As per discussion - no indication for transfer as no surgical management would be indicated. Furthermore - as per Pin Drafting Machine Tender discussion with
family - they were not willing to consider transfer.
Patient eventually improved, but repeated CT showed Trace intraventricular hemorrhage within the occipital horns bilaterally, No midline shift or herniation., not worsened on repeated CT so neurology started ASA. Mentation and speech much improved,
but became more lethargic after MRI probably / Ativan as repeated CT head showed small volume intraventricular hemorrhage in the occipital horns, not appreciably changed compared to the recent head CT from 10/15/2024. Treated for E.coli UTI and as
per ID consult - medically stable for d/c on oral cefdinir as patient tolerated Fortraz before.
As per discussion with family - they ant to keep non-invasive approach in management of their father and would not want any procedures that can cause significant distress for him
Medically stable for d/c to rehab
A/P:
#CVA/TIA
#L carotid dissection
#R carotid stenosis
#Trace intraventricular hemorrhage within the occipital horns bilaterally
Reviewed CT findings with neurologist. ASA to hold, since patient improving - follow up with repeated CT head as hemorrhage is minimal
Control BP
Antiplatelets as per neurologist
MRI head - 2mm stroke in L parietal lobe
Echo cancelled by neurologist - agree
Neurochecks
LDL 97 - switch to atorvastatin
Telemetry without clinically significant arrhythmia
Follow neurology reccs for carotid stenosis and dissection mgmt
#Emphysematous cystitis
#Hx of R partial nephrectomy
#R pelvicaliceal dilation
#BPH with LUTS
[place]
Ucx - fluoroquinolone resistant E.coli, cont Merrem, pending final reccs by ID
Urology: outpatient urodynamic study, no TOV before DC
Bcx NTD
#DM type 2 with circulatory complications
Insulin SS, DM diet, Accuchecks
#Leukocytosis - resolved off Abx
#Thrombocytosis - improving
#Mild anemia
Chronic, recommend outpatient sterile proc tech
#Dysphagia
2/2 recent CVA/TIA
TREE DOCTOR recommended dysphagia diet
#Hypothyroidism
TSH WNL
cont Synthroid
#CKD stage 3b
follow Cr, baseline 1.9-2.1
#PMR on prednisone
#RA
#Iatrogenic adrenal insufficiency
#BPH
Watch for urinary retention
cont home meds
DVT ppx SCDs (recent TNK)
DNR/DNI
I have spent at least 38min reviewing chart, test results, communication with consultants and providing direct patient care
Anticipated Discharge: Today
Subjective/Interval History
-
Date of Service: October 22, 2024
Objective Data
-
Vital Signs:
Vital Signs
Temp Pulse Resp BP Pulse Ox
98.3 F 69 16 123/68 98
10/22/24 07:00 10/22/24 07:00 10/22/24 07:00 10/22/24 07:00 10/22/24 07:00
I&O
10/21/24 10/22/24 10/23/24
06:59 06:59 06:59
Intake Total 880 / 880 1080 / 1080
Output Total 1075 / 1075 1400 / 1400
Balance -195 / -195 -320 / -320
Review of Systems
-
Unable to obtain full review of systems at this time due to: Dementia
History Source: Patient
All other systems: Reviewed and negative
Physical Exam
-
General: Comfortable
Neuro: Awake and Alert
Psych: Calm and Apparent Dementia
--- NOTE | 2024-10-22 09:54 | W.DCSUMMARY ---
Discharge Summary
Discharge Data
Date of Admission: 10/13/24
Date of Discharge: 10/22/24
-
Pending Results: No
Hospital Course
79yo M with PMHX of hypothyroidism, DM, HTN, HLD, GERD, BPH brought from SNF with new dysphasia and aphasia, as well as RUE weakness and R fascial droop. Had TNK in ED and admitted to ICU for the monitoring. CTA head and neck showed L carotid
dissection and as per discussion with neurosurgery and vascular SX - discussed with [facility] neurology. As per discussion - no indication for transfer as no surgical management would be indicated. Furthermore - as per [employer] discussion with
family - they were not willing to consider transfer.
Patient eventually improved, but repeated CT showed Trace intraventricular hemorrhage within the occipital horns bilaterally, No midline shift or herniation., not worsened on repeated CT so neurology started ASA. Mentation and speech much improved,
but became more [facility] showed small volume intraventricular hemorrhage in the occipital horns, not appreciably changed compared to the recent head CT from 10/15/2024. Treated for E.coli UTI and as
per ID consult - medically stable for d/c on oral cefdinir till 11/02/24 as patient tolerated Fortraz before. [place] to continue on discharge, Urology referral prtovided
As per discussion with family - they ant to keep non-invasive approach in management of their father and would not want any procedures that can cause significant distress for him
Medically stable for d/c to rehab
I have spent at least 38min reviewing chart, test results, communication with consultants and providing direct patient care
PAtient was managed for:
#CVA/TIA
#L carotid dissection
#R carotid stenosis
#Trace intraventricular hemorrhage within the occipital horns bilaterally
#Emphysematous cystitis
#Hx of R partial nephrectomy
#R pelvicaliceal dilation
#BPH with LUTS
#DM type 2 with circulatory complications
#Leukocytosis - resolved off Abx
#Thrombocytosis - improving
#Mild anemia
#Dysphagia
#Hypothyroidism
#CKD stage 3b
#PMR on prednisone
#RA
#Iatrogenic adrenal insufficiency
#BPH
Discharge Plan
-
Patient Disposition: Other
Discharge Diagnosis/Procedures: Stroke
Diet: Low Cholesterol
Activity: As tolerated
Driving Restrictions: As prior to admission
Referrals:
Sukumar Martinez MD [Active] - in two to four weeks (for urinary retention mgmt)
Wilberto Oneill DO [Family Provider] -
Prescriptions:
New
aspirin 81 mg Tablet,Delayed Release (Dr/Ec)
81 mg PO DAILY Qty: 30 0RF
cefdinir 300 mg Capsule
300 mg PO DAILY@1800 Qty: 22 0RF
thiamine mononitrate (vit B1) 100 mg Tablet
100 mg PO DAILY Qty: 30 0RF
Continued
pantoprazole 40 MG tablet,delayed release (DR/EC)
40 mg PO DAILY
levothyroxine [Levoxyl] 88 MCG tablet
88 mcg PO DAILY
simvastatin 40 MG tablet
40 mg PO HS
acetaminophen 325 mg Tablet
650 mg PO Q6HPRN PRN (Reason: mild pain/fever)
prednisone 5 mg tablet
2.5 mg PO DAILY
loperamide 2 mg Tablet
2 mg PO Q6HPRN PRN (Reason: loose stool)
tamsulosin 0.4 mg capsule
0.4 mg PO HS
sertraline 50 mg Tablet
75 mg PO DAILY
calcium carbonate-vitamin D3 [Calcium 600 + D(3)] 600 mg-10 mcg (400 unit) Tablet
1 tab PO BID
therapeutic multivitamin Tablet
1 tab PO DAILY
metoprolol succinate 25 mg Tablet Extended Release 24 Hr
25 mg PO DAILY
Discontinued
fluoride (sodium) [DentaGel] 1.1 % Gel
1 applic DENTAL DAILY
estradiol 0.1 mg/24 hr patch semiweekly
1 patch transdermal MOTH@1830
Discharge Orders:
Discharge Patient (As Directed); Ordered 10/22/24
Ordered By: Jeffrey Crook
Discharge Date and Time
Print Language: WALLISIAN
--- NOTE | 2024-10-22 10:41 | CM ---
CM reviewed chart, spoke with nurse Cami from [facility], confirmed ability to accept patient for return, will need script for PT/OT, return of care referral sent to [facility] . Phone call to patients daughter, Ivana, left voicemail regarding
transport time 1:00 p.m., review IMM.
Plan; return to [facility], 1:00 p.m. ambulance transport
[facility] report: [phone]
[place]
[facility]
[2024-10-22 11:05] VITALS: BP 120/59
[2024-10-22 11:21] LABS: Glucose - Point of Care 189 mg/dl (70-99)
[2024-10-22] MEDS: NOVOLOG FLEXPEN-MODERATE RESISTANCE 1 UNITS SC (11:30)
== END 2024-10-22 13:01 | disposition home health service (06) | DRG 61 ==
LOC: 4 WEST ACU 16:00
PROVIDERS: ADMITTING PHYSICIAN Internal Medicine; ATTENDING PHYSICIAN Internal Medicine; CONSULT PHYSICIAN Physical Medicine & Rehabilitation; CONSULT PHYSICIAN Psychiatry & Neurology Clinical Neurophysiology; CONSULT PHYSICIAN Surgery; EMERGENCY PHYSICIAN Emergency Medicine; FAMILY PHYSICIAN Family Medicine; OTHER PHYSICIAN Internal Medicine Critical Care Medicine; OTHER PHYSICIAN Student in an Organized Health Care Education/Training Program
PROC: 3E03317 Introduction of Other Thrombolytic into Peripheral Vein, Percutaneous Approach (ICD-10-PCS; 2024-10-13)
DX: I63.9 Cerebral infarction, unspecified (principal); I61.5 Nontraumatic intracerebral hemorrhage, intraventricular; I77.71 Dissection of carotid artery; E27.49 Other adrenocortical insufficiency; E87.20 Acidosis, unspecified; F02.A4 Dementia in other diseases classified elsewhere, mild, with anxiety; F02.A3 Dementia in other diseases classified elsewhere, mild, with mood disturbance; I13.0 Hypertensive heart and chronic kidney disease with heart failure and stage 1 through stage 4 chronic kidney disease, or unspecified chronic kidney disease; N17.9 Acute kidney failure, unspecified; N25.81 Secondary hyperparathyroidism of renal origin; G81.94 Hemiplegia, unspecified affecting left nondominant side; R47.01 Aphasia; G20.A1 Parkinson's disease without dyskinesia, without mention of fluctuations; R29.810 Facial weakness; I50.9 Heart failure, unspecified; N18.32 Chronic kidney disease, stage 3b; E11.40 Type 2 diabetes mellitus with diabetic neuropathy, unspecified; E03.9 Hypothyroidism, unspecified; E78.00 Pure hypercholesterolemia, unspecified; I25.10 Atherosclerotic heart disease of native coronary artery without angina pectoris; R47.02 Dysphasia; F32.A Depression, unspecified; M35.3 Polymyalgia rheumatica; E11.22 Type 2 diabetes mellitus with diabetic chronic kidney disease; G47.33 Obstructive sleep apnea (adult) (pediatric); N30.80 Other cystitis without hematuria; K21.9 Gastro-esophageal reflux disease without esophagitis; N40.1 Benign prostatic hyperplasia with lower urinary tract symptoms; M06.9 Rheumatoid arthritis, unspecified; G89.4 Chronic pain syndrome; K59.09 Other constipation; M19.90 Unspecified osteoarthritis, unspecified site; R13.10 Dysphagia, unspecified; F10.11 Alcohol abuse, in remission; M85.80 Other specified disorders of bone density and structure, unspecified site; D64.9 Anemia, unspecified; D75.839 Thrombocytosis, unspecified; B96.20 Unspecified Escherichia coli [E. coli] as the cause of diseases classified elsewhere; R33.9 Retention of urine, unspecified; R29.6 Repeated falls; I65.21 Occlusion and stenosis of right carotid artery; Z66 Do not resuscitate; Z88.5 Allergy status to narcotic agent; Z88.0 Allergy status to penicillin; Z88.8 Allergy status to other drugs, medicaments and biological substances; Z79.890 Hormone replacement therapy; Z79.4 Long term (current) use of insulin; Z79.84 Long term (current) use of oral hypoglycemic drugs; Z79.52 Long term (current) use of systemic steroids; Z87.19 Personal history of other diseases of the digestive system; Z87.440 Personal history of urinary (tract) infections; Z80.3 Family history of malignant neoplasm of breast; Z82.49 Family history of ischemic heart disease and other diseases of the circulatory system; Z82.0 Family history of epilepsy and other diseases of the nervous system; Z91.81 History of falling; Z86.14 Personal history of Methicillin resistant Staphylococcus aureus infection; Z87.820 Personal history of traumatic brain injury; Z79.82 Long term (current) use of aspirin; Z90.5 Acquired absence of kidney
CPT/HCPCS: 70450; 70496; 70498; 70551; 71045; 72125; 74176; 80048; 80053; 80061; 81003; 81015; 82962; 83036; 83735; 84443; 84484; 85025; 85027; 85610; 85730; 86850; 86900; 86901; 87040; 87086; 87088; 87186; 92507; 92523; 92526; 92610; 93005; 96374; 97116; 97163; 97167; 97530; 97535; 99291; J3101; Q9967